=== PATIENT | male | born 1930 | race Caucasian/White ===

== ENCOUNTER 2017-02-16 13:56 | Inpatient (IN) ==
[2017-02-16] MEDS ORDERED: ALBUTEROL/IPRATROPIUM 3 ML NEB RESP TX PRN (13:58)
--- NOTE | 2017-02-16 15:26 | EKG Report ---
Stationary ECG Study [facility] Test Date: 02/16/2017 3:25:24 PM Pat Name: ISREAL MARSHALL Department: Room: 537 Gender: M Differential Repairer: : [id number] Requested by: Gato Lopez Order Number: [id number] Reading MD: KIMMY DEE Intervals Rogers Rate: 92 P: 999 VT: 0 QRS: -26 QRSD: 143 T: 150 QT: 364 QTc: 413 Interpretive Statements ATRIAL FIBRILLATION LEFT AXIS DEVIATION RIGHT BUNDLE BRANCH BLOCK MARKED ST DEPRESSION, CONSIDER SUBENDOCARDIAL INJURY Electronically Signed On 02-20-17 16:11:38 CDT by KIMMY DEE [email or web address]
--- NOTE | 2017-02-16 16:29 | Pulmonology History & Physical ---
History of Present Illness Chief complaint: Acute RADHA pneumonia, possible LLL and RLL pneumonia, pyrexia History of present illness: Gato Lpoez, ANP-BC, GNP-BC, acting as scribe for Dr. Jareth Guzman Mr. Goldstein is an 87-year-old white male who was seen as a work-in today at [facility] by Gato Lopez NP. He presented with complaints of increased shortness of breath, JONES, cough, sinus drainage and pyrexia. He stated that he was discharged from [facility] yesterday. He was inpatient 02/11/17 through under the care of the hospitalists. He was treated for acute sinusitis and possible pneumonia. He states that he feels "terrible". On evaluation at [facility], his CXR revealed an acute left upper lung pneumonia and possible left lower lung and right lower lung infiltrates. Given his advanced age, multiple co- morbidities and acute illness, it was felt in his best interest to hospitalize him for further evaluation and care. Patient was previously followed from a pulmonary standpoint by Dr. Vj Hightower. We assumed his pulmonary care in September [address] Aidan Champion for consideration of possible thoracentesis. 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 CT of the chest on 08/29/2016 showed no acute abnormality. Patient has bilateral pleural effusions which were essentially stable and partially loculated. The right upper lobe showed a soft tissue and groundglass lesion which was stable in appearance. The patient has completed 5 rounds of radiation treatment. He had had a thoracentesis at some point while inpatient but he was not sure if it helped his breathing or not and opted to forego therapeutic thoracentesis at our initial consultation. He has done reasonably well from a pulmonary standpoint. He presented to [facility] on 01/26/2017 with complaints of productive cough with pleurisy. [facility] transferred him to [facility] after the patient was found to have an acute pneumonia. He was subsequently admitted to the hospitalist service for evaluation and treatment. Dr. Guzman saw him in pulmonary consultation that admission. He denies any cardiac angina or palpitations. The patient has known atrial fibrillation. He denies any dysphasia or reflux. There is been no bleeding from any site. No change in bowel or bladder habits. No TIA symptoms or syncope. All other systems were reviewed and were negative. Allergies: None Home medications: See list Past medical history: Two recent hospitalization at [facility] as above. History is also significant for adenocarcinoma of the right upper lung which was diagnosed in May 2016. He is now followed from an oncology standpoint by Dr. Pickard. He has completed 5 rounds of radiation treatment. Atrial fibrillation which is followed by Dr. Mcgovern. Anemia and in the past has been hospitalized twice for symptomatic anemia and required blood transfusions. History of apical hypertrophic cardiomyopathy, arteriosclerotic heart disease , colon polyps, COPD, diverticulosis, dyslipidemia, gastroesophageal reflux disease, hiatal hernia, hypertension, hypoxia, and peptic ulcer disease. Surgical history: Positive for hernia repair, EGD with dilatation, and an unknown type of lung surgery in the . Cardiac cath in April 2015. Cholecystectomy. Family history: Positive for diabetes, skin and lung cancer, and myasthenia gravis in brothers. His father had prostate cancer, hypertension, and heart failure. His mother had heart failure. Social history: Patient socially drinks alcohol. He is a former smoker. Chest x-ray. Done 02/16/2017. My interpretation. Right upper lung known adenocarcinoma stable. There is an acute left upper lung infiltrate compatible with pneumonia. There are possible left lower lung and right lower lung infiltrates. Laboratory: Pending Microbiology: Pending EKG: Atrial fibrillation Home Medications Medication Instructions Recorded Confirmed Type Docusate Sodium Cap [Colace Cap] 100 mg PO BID 04/30/15 02/16/17 History Nitroglycerin Sl Tab [Nitrostat] 0.4 mg SL Q5M PRN 04/30/15 02/16/17 History Amitriptyline HCl 25 mg PO BEDTIME 05/11/15 02/16/17 History Albuterol Sulfate [Ventolin HFA] 90 mcg INH BID PRN 12/28/15 02/16/17 History Gabapentin 300 mg PO BEDTIME 12/28/15 02/16/17 History Montelukast Tab [Singulair Tab] 10 mg PO BEDTIME 12/28/15 02/16/17 History Carvedilol [Coreg] 6.25 mg PO BID #0 04/16/16 02/16/17 Rx Aspirin EC Tab 81 mg PO QAM 01/28/17 02/16/17 History Cholecalciferol (Vitamin D3) 5,000 unit PO QAM 01/28/17 02/16/17 History [Vitamin D3] Furosemide Tab [Lasix Tab] 40 mg PO BID PRN 01/28/17 02/16/17 History Iron (Carbonyl) [Feosol Natural 45 mg PO QAM 01/28/17 02/16/17 History Release Tab] Pantoprazole Tab [Protonix Tab] 40 mg PO QPM 01/28/17 02/16/17 History Potassium Chloride Cap/Tab [K Dur] 20 meq PO QAM 01/28/17 02/16/17 History Pravastatin Sodium 80 mg PO BEDTIME 01/28/17 02/16/17 History Pyridoxine Tab [Vitamin B6 Tab] 100 mg PO QAM 01/28/17 02/16/17 History Vit C/Vit E AC/Lut/Copper/Zinc 1 each PO DAILY 01/28/17 02/16/17 History [Preservision Lutein Softgel] dilTIAZem HCl [Tiazac] 180 mg PO BID 01/28/17 02/16/17 History Albuterol Inhaler [Proventil 2 puff INH Q6HR #1 inhaler 02/02/17 02/16/17 Rx Inhaler] Allergies Allergy/AdvReac Type Severity Reaction Status Date / Time No Known Allergies Allergy Verified 02/11/17 19:01 Medical,Surgical,& Family Hx - Medical History Cardio: History of: Cardiac Dysrhythmia (atrial fib,atrial flutter), CAD, Hypertension Psychological: No history of: Anxiety Disorders, ADHD, Behavior Problems, Bipolar Disorder, Depression, Previous Suicide Attempt, Psychiatric/Substance Abuse Tx, Schizophrenia, Violent Behavior, Psychiatric Problems Neurology: No history of: Brain Aneurysm, Cerebral Hemorrhage, Cerebrovascular Accident , Cerebral Palsy, Dementia, Migraine, Multiple Sclerosis, Parkinson's Disease, Peripheral Neuropathy, Seizures, TIA, Vertigo, Neurologocal Cancer HEENT: History of: Ear Problem (hard of earing), Eye Problem (macular degeneration), Dental Problems (wears upper and lower dentures) No history of: Glaucoma, Oral Cancer Endocrine: History of: Dyslipidemia Respiratory: History of: COPD, Pneumonia, Lung Cancer (nodule found many years ago), Respiratory Problems (pleuracy,pleural effusions) No history of: Obstructive Sleep Apnea Genitourinary: History of: Prostate Problems Gastrointestinal: History of: Diverticulitis/ Diverticulosis, GERD, Gastrointestinal Bleed Hematology: History of: Anemia No history of: Blood Transfusion Reaction, Blood Disorders Other: History of: Cancer (right lung,skin ca face arms back nose ears), Skin Problems (skin cancers) No history of: Anesthesia Reactions - Surgical History Cardiac Surgeries: Sugical HX of: Cardiac Catheterization (April 15, 2015 - no CAD ) Thoracic Surgeries: Surgical HX of;: Lobectomy (small lung nodule removed small portion of lung) Patient denies;: Organ Transplant Neurologic Surgeries: Patient denies: Brain Aneurysm, Cerebral Hemorrhage HEENT Surgeries: Patient denies: Eye Surgery, Tonsilectomy & Adenoidectomy Abdominal Surgeries: Surgical HX of: Abdominal Surgery, Cholecystectomy, Hernia Repair - Family History Family History: Reports;: Family Cancer (brothers skin and lung), Family Diabetes (brother), Family Heart Disease (mother and father CHF), Family Hypertension (father), Family Stroke (gm,gd,uncle) Denies;: Family Anesthesia Reaction - Social History Smoking Status: Former smoker Frequency of Alcohol Use: None Type of Drug Use: None Exam (Pulmonay) H&P - Constitutional Vitals: Period Temp Pulse Resp BP Sys/Brown Pulse Ox Last 24 Hr 98.1 F 89 20 110/59 96 Exam: Psych: Oriented x 3; a pleasant and cooperative patient who is acutely and chronically ill appearing HEENT: Pupils, irises, sclera, conjunctiva, and eyelids are normal. The face is symmetrical without rash or masses. Lips, tongue, buccal mucosa, soft and hard palates, and pharynx are WNL Neck: Symmetrical. Thyroid was not palpated. Lymphatics: No submandibular, cervical, or supraclavicular adenopathy Chest: Symmetrical with mild large airway wheeze and associated loose large airway congestion; rhonchi in the left upper lung CV: Irregularly irregular with normal rate; no murmur or extra sounds Arterial: Carotids with a fair upstroke. There is no bruit. Upper extremity pulses are palpable. Lower extremity pulses are palpable. Venous: Exam of the neck, upper, and lower extremities is normal Abd: No appreciable organomegaly, masses, tenderness, or bruit; Bowel sounds are positive 4; The aorta was not palpated /Rectal: Deferred Extremities: No clubbing, cyanosis, edema, or obvious DVT Skin: No cancerous or infectious lesions of the exposed, examined skin; the perineal area was not examined M/S: Age appropriate loss of the normal curvature of the cervical, thoracic, and lumbar spine Neurological: Cranial nerves are intact with decreased hearing acuity bilaterally, Long tract motor function is intact; Sensory exam was not done; gait was not tested. The remainder of the exam was noncontributory. Impression: #1: Acute left upper lung infiltrate compatible with pneumonia; possible left lower lung and right lower lung infiltrates #2: Adenocarcinoma of the right upper lung diagnosed in May 2016; now status post 5 rounds of radiation treatment. Followed by Dr. Pickard and Dr. Aidan Champion #3: Atrial fibrillation #4: Hyperlipidemia #5: Gastroesophageal reflux disease #6: History of iron deficiency anemia which in the past has required blood transfusions #7: COPD #8: Arteriosclerotic heart disease #9: History of pleural effusion #10: Diverticulosis of the colon #11: See past history Plan: #1: Admit to inpatient #2: Check sputum for Gram stain, culture and sensitivity #3: Check cold agglutinins and Legionella #4: IV antibiotics of Merrem and Fortaz; inhalation therapy #5: Continue home medications #6: See orders
[2017-02-16] MEDS: DEXTROSE 5% NACL 0.45% 1,000 ML IV SCH (16:30)
[2017-02-16] MEDS ORDERED: FUROSEMIDE 40 MG TABLET PO PRN (16:39)
[2017-02-16] MEDS ORDERED: NITROGLYCERIN SL 0.4 MG TABLET SL PRN (16:39)
[2017-02-16 17:34] LABS: Basophils % 0.1 % (0.0-0.8); Eosinophils # 0.3 10*3/uL (0.0-0.87); Eosinophils % 3.2 % (0.00-10.9); Hematocrit 34.9 VOL% (42.0-52.0); Hemoglobin 10.9 GM/DL (14.0-18.0); Immature Granulocytes % 0.4 %; Immature Granulocytes Absolute 0.03 #; Lymphocytes # 0.9 10*3/uL (1.4-4.0); Lymphocytes % 10.8 % (21.2-54.2); Mean Corpuscular HGB Conc 31.2 GM/DL (32-36); Mean Corpuscular Hemoglobin 35 PG (27-34); Mean Corpuscular Volume 111.9 FL (87-102); Mean Platelet Volume 10.6 FL (9.6-12.0); Monocytes # 0.8 10*3/uL (0.11-0.8); Neutrophils # 6.4 10*3/uL (1.4-7.4); Neutrophils % 76.5 % (38.7-73.9); Platelet Count 169 T/CUMM (130-400); Red Blood Count 3.12 MC/CUMM (3.8-5.5); Red Cell Distribution Width 15.1 % (9.3-17.3); White Blood Count 8.3 T/CUMM (4-12)
[2017-02-16 18:16] LABS: Albumin 2.7 G/DL (3.4-5.0); Bilirubin,Total 1.9 MG/DL (0.2-1.0); Calcium 8.3 MG/DL (8.5-10.1); Magnesium 2.2 MG/DL (1.8-2.4); Osmolality,Calculated 283.1 MOS/KG (273-304); Potassium 4.2 MMOL/L (3.5-5.1); Thyroid Stimulating Hormone 0.595 uIU/ml (0.358-3.74); Total Protein 5.6 G/DL (6.4-8.3)
[2017-02-16] MEDS: MEROPENEM 500 MG in SODIUM CHLORIDE 0.9% 100 ML IV SCH (18:24)
[2017-02-16 19:46] LABS: Platelet Estimate Normal
[2017-02-16 19:47] LABS: Anisocytosis 1+; Macrocytosis 1+
[2017-02-16] MEDS: DORNASE ALFA 2.5 MG/2.5 ML VIAL RESP TX SCH (19:54)
[2017-02-16] MEDS: ALBUTEROL/IPRATROPIUM 3 ML NEB RESP TX SCH (19:54)
[2017-02-16] MEDS: DILTIAZEM CD 180 MG CAPSULE PO SCH (20:51)
[2017-02-16] MEDS: GABAPENTIN 300 MG CAPSULE PO SCH (20:52)
[2017-02-16] MEDS: CARVEDILOL 6.25 MG TABLET PO SCH (20:52)
[2017-02-16] MEDS: AMITRIPTYLINE 25 MG TABLET PO SCH (20:52)
[2017-02-16] MEDS: MONTELUKAST 10 MG TABLET PO SCH (20:53)
[2017-02-16] MEDS: DOCUSATE SODIUM 100 MG CAPSULE PO SCH (20:53)
[2017-02-16] MEDS: ACETAMINOPHEN 325 MG TABLET PO PRN (20:53)
[2017-02-16] MEDS: PANTOPRAZOLE 40 MG TABLET PO SCH (20:53)
[2017-02-16] MEDS: PRAVASTATIN 40 MG TABLET PO SCH (20:53)
[2017-02-16] MEDS: MAGNESIUM HYDROXIDE SUSP 30 ML UDCUP PO PRN (21:15)
[2017-02-17] MEDS: MEROPENEM 500 MG in SODIUM CHLORIDE 0.9% 100 ML IV SCH ×3 (01:35→17:13)
[2017-02-17] MEDS: ALBUTEROL/IPRATROPIUM 3 ML NEB RESP TX SCH ×4 (02:04→19:09)
[2017-02-17 03:34] LABS: Apearance,Urine CLEAR (Clear); Bacteria,Urine Occasional /HPF (Few); Bilirubin,Urine Negative (Negative); Blood, Urine Negative (Negative); Glucose,Urine (UA) Negative (Negative); Hyaline Casts,Urine 3 /LPF (0-3); Ketones,Urine Negative (Negative); Mucus,Urine Occasional /LPF (Occasional); Nitrite,Urine Negative (Negative); Protein,Urine Negative; RBC,Urine 1 /HPF (0-4); Urine Color Yellow (Yellow); Urine Urobilinogen < 2.0 EU/DL (0.2-1.0); WBC,Urine 3 /HPF (0-6)
[2017-02-17 07:26] LABS: Eosinophils # 0.3 10*3/uL (0.0-0.87); Eosinophils % 4.1 % (0.00-10.9); Hematocrit 31.5 VOL% (42.0-52.0); Immature Granulocytes % 0.6 %; Immature Granulocytes Absolute 0.04 #; Lymphocytes # 0.6 10*3/uL (1.4-4.0); Lymphocytes % 8.3 % (21.2-54.2); Mean Corpuscular HGB Conc 31.7 GM/DL (32-36); Mean Corpuscular Hemoglobin 34 PG (27-34); Mean Corpuscular Volume 108.2 FL (87-102); Mean Platelet Volume 10.4 FL (9.6-12.0); Monocytes # 0.5 10*3/uL (0.11-0.8); Neutrophils # 5.3 10*3/uL (1.4-7.4); Platelet Count 115 T/CUMM (130-400); Red Blood Count 2.91 MC/CUMM (3.8-5.5); Red Cell Distribution Width 15.1 % (9.3-17.3); White Blood Count 6.7 T/CUMM (4-12)
[2017-02-17 07:57] LABS: Eosinophils 4 % (0-10); Lymphocytes 9 % (20-55); Segmented Neutrophils 81 % (50-85); Total Cells Counted 100
[2017-02-17 07:58] LABS: Hypochromasia 1+; Macrocytosis Slight; Ovalocytes Slight; Platelet Estimate Decreased
[2017-02-17 08:03] LABS: Magnesium 2.4 MG/DL (1.8-2.4); Potassium 4.2 MMOL/L (3.5-5.1)
[2017-02-17] MEDS: CHOLECALCIFEROL 1,000 UNIT TABLET PO SCH (09:31)
[2017-02-17] MEDS: DILTIAZEM CD 180 MG CAPSULE PO SCH ×2 (09:32→21:07)
[2017-02-17] MEDS: POTASSIUM CHLORIDE 20 MEQ TABLET PO SCH (09:32)
[2017-02-17] MEDS: IRON (CARBONYL) 45 MG TABLET PO SCH (09:32)
[2017-02-17] MEDS: MULTIVITAMIN (OCUVITE) TABLET PO SCH (09:32)
[2017-02-17] MEDS: PYRIDOXINE 100 MG TABLET PO SCH (09:32)
[2017-02-17] MEDS: DOCUSATE SODIUM 100 MG CAPSULE PO SCH ×2 (09:32→21:07)
[2017-02-17] MEDS: DEXTROSE 5% NACL 0.45% 1,000 ML IV SCH (09:33)
[2017-02-17] MEDS: CARVEDILOL 6.25 MG TABLET PO SCH (09:33)
[2017-02-17] MEDS: ASPIRIN EC 81 MG TABLET PO SCH (09:33)
--- NOTE | 2017-02-17 10:05 | XRay Report ---
XR chest 2V Indication: SOB Comparison: Chest x-ray dated February 11, 2017 Technique: Frontal and lateral views of the chest Findings: Continued moderate cardiomegaly. Progressed prominence of interstitial lung markings and patchy bilateral pulmonary opacities suggesting progressed pulmonary edema or pneumonia. Progressed small bilateral pleural fluid. Osseous and surrounding soft tissue structures appear grossly unchanged. IMPRESSION: As above. PROCEDURE INTERPRETED AT [facility] DEPARTMENT OF RADIOLOGY Final Report Signed by: Dr Stephan Jeong
[2017-02-17] MEDS: DORNASE ALFA 2.5 MG/2.5 ML VIAL RESP TX SCH ×2 (10:27→19:09)
--- NOTE | 2017-02-17 11:49 | Pulmonology Progress Note ---
Pulmonary - PN: Subj Interval history: Gato Lopez, ANP-BC, GNP-BC, acting as scribe for Dr. Jareth Guzman Mr. Goldstein is an 87-year-old white male who was [facility]. 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 Followed by Dr. Pickard and Dr. Aidan Champion #3: Atrial fibrillation #4: Hyperlipidemia #5: Gastroesophageal reflux disease #6: History of iron deficiency anemia which in the past has required blood transfusions #7: COPD #8: Arteriosclerotic heart disease #9: History of pleural effusion #10: Diverticulosis of the colon #11: See past history 02/17/2017. Patient was seen today along with Ofe Ramirez RN. Chest x-ray shows that his previously noted infiltrate persists and there appears to be an element of congestive heart failure. BNP is elevated at 725. Will obtain an echocardiogram and start Lasix 40 mg IV twice daily. He is getting daily chest x-rays. Sputum for Gram stain, culture and sensitivity was ordered at admission , however, the patient has not produced sputum for testing thus far. He states he feels better since admission. He is presently being treated with Merrem and Fortaz. Medications have been reviewed. Lasix was added today. Labs have been reviewed. White count is 6700 with 79.0% segs; H&H 10.0/31.5; platelet count 115,000; creatinine 1.30, BUN 19, electrolytes are normal; TSH and free T4 are normal at 0.595 and 1.10 respectively; urinalysis showed no evidence of infection Exam (Progress Note) - Constitutional Vitals: Period Temp Pulse Resp BP Sys/Brown Pulse Ox Last 24 Hr 98.1 F-101.2 F 80-96 16-20 99-130/47-70 89-99 Exam: Chest with loose large airway congestion Heart irregularly irregular Abdomen is nontender nondistended; bowel sounds are positive 4 Extremities with nothing to suggest acute deep venous thrombophlebitis Psychiatric oriented 3 Neurologic long-term motor function is intact Plan: Echocardiogram. Start Lasix 40 mg IV every 12 hours. Daily chest x- rays. Daily CBC, BMP, and BNP. See orders. Results - Labs CBC & BMP: 02/17/17 07:06 02/17/17 07:06
[2017-02-17] MEDS: cefTAZidime 500 MG in SODIUM CHLORIDE 0.9% 100 ML IV SCH ×2 (12:45→21:04)
[2017-02-17] MEDS: ACETAMINOPHEN 325 MG TABLET PO PRN (17:12)
[2017-02-17] MEDS: FUROSEMIDE 40 MG/4 ML VIAL IV SCH (17:12)
--- NOTE | 2017-02-17 17:39 | ECHO Report ---
Isabel Goldstein Exam Date: 02/17/2017 11:53 Referring Physician: Technologist: Angela Hu Age: 87 Ht (in): 72 Wt (lb): 168 Gender: M Exam Location: [facility] Echo Indications: Lung CA, SOB, eval LVF, pneumonia BP: 110 / 51 HR: 87 Rhythm: Sinus Technical Quality: IMPRESSIONS 3+ left atrial enlargement 3+ concentric LVH Hyperdynamic LV systolic function with ejection fraction is made to be 70% without wall motion commonality Aortic sclerosis without stenosis Mitral annular calcification 2+ tricuspid regurgitation with RVSP 41 mmHg plus RAP Monitor strips suggest irregular rhythm MEASUREMENTS (Male / Female) Normal Values 2D ECHO LV Diastolic Diameter PLAX 4.7 cm 4.2 - 5.9 / 3.9 - 5.3 cm LV Systolic Diameter PLAX 2.9 cm LV Fractional Shortening PLAX 37.1 % IVS Diastolic Thickness 2.0 cm 0.6 - 1.0 / 0.6 - 0.9 cm LVPW Diastolic Thickness 1.3 cm 0.6 - 1.0 / 0.6 - 0.9 cm RV Internal Dim ED PLAX 2.8 cm Aortic Root Diameter 2.9 cm LA Systolic Diameter LX 5.2 cm 3.0 - 4.0 / 2.7 - 3.8 cm DOPPLER TR Peak Velocity 319.0 cm/s TR Peak Gradient 40.7 mmHg FINDINGS Left Ventricle Severely increased septal wall thickness. Moderate concentric left ventricular hypertrophy with diastolic dysfunction. Left ventricular ejection fraction is estimated at Right Ventricle Normal right ventricular size. Right Atrium Normal right atrial size. Left Atrium Severely increased left atrial diameter. Mitral Valve Mildly thickened mitral valve with mild - moderate mitral regurgitation. Aortic Valve Aortic valve sclerosis without stenosis or regurgitation. Tricuspid Valve Morphologically normal tricuspid valve. Moderate tricuspid valve regurgitation. Tricuspid regurgitation velocities suggest a PAP of 40.7 mmHg + RAP. Pulmonic Valve Morphologically normal pulmonic valve. Trace pulmonary valve regurgitation. Pericardium No pericardial effusion. Aorta Normal size aortic root and proximal ascending aorta. Deonte Rojo (Electronically Signed) Final Date: 17 Feb 2017 17:38
[2017-02-17] MEDS: PANTOPRAZOLE 40 MG TABLET PO SCH (18:23)
[2017-02-17] MEDS: GABAPENTIN 300 MG CAPSULE PO SCH (21:06)
[2017-02-17] MEDS: PRAVASTATIN 40 MG TABLET PO SCH (21:07)
[2017-02-17] MEDS: MONTELUKAST 10 MG TABLET PO SCH (21:07)
[2017-02-17] MEDS: AMITRIPTYLINE 25 MG TABLET PO SCH (21:07)
[2017-02-18] MEDS: CARVEDILOL 6.25 MG TABLET PO SCH ×3 (00:05→20:33)
[2017-02-18] MEDS: ALBUTEROL/IPRATROPIUM 3 ML NEB RESP TX SCH ×4 (01:24→19:38)
[2017-02-18] MEDS: MEROPENEM 500 MG in SODIUM CHLORIDE 0.9% 100 ML IV SCH ×3 (01:25→18:08)
[2017-02-18] MEDS: DEXTROSE 5% NACL 0.45% 1,000 ML IV SCH ×2 (01:26→18:30)
[2017-02-18] MEDS: cefTAZidime 500 MG in SODIUM CHLORIDE 0.9% 100 ML IV SCH ×3 (04:44→20:00)
[2017-02-18 07:12] LABS: Basophils % 0.3 % (0.0-0.8); Eosinophils # 0.3 10*3/uL (0.0-0.87); Eosinophils % 5.4 % (0.00-10.9); Hematocrit 31.5 VOL% (42.0-52.0); Hemoglobin 10.1 GM/DL (14.0-18.0); Immature Granulocytes % 0.8 %; Immature Granulocytes Absolute 0.05 #; Lymphocytes # 0.7 10*3/uL (1.4-4.0); Lymphocytes % 11.8 % (21.2-54.2); Mean Corpuscular HGB Conc 32.1 GM/DL (32-36); Mean Corpuscular Hemoglobin 35 PG (27-34); Mean Corpuscular Volume 107.9 FL (87-102); Monocytes # 0.6 10*3/uL (0.11-0.8); Monocytes % 9.5 % (1.7-12.7); Neutrophils # 4.4 10*3/uL (1.4-7.4); Neutrophils % 72.2 % (38.7-73.9); Platelet Count 124 T/CUMM (130-400); Red Blood Count 2.92 MC/CUMM (3.8-5.5); Red Cell Distribution Width 14.7 % (9.3-17.3); White Blood Count 6.1 T/CUMM (4-12)
[2017-02-18 07:44] LABS: Magnesium 2.3 MG/DL (1.8-2.4)
[2017-02-18 07:52] LABS: Hypochromasia 1+
[2017-02-18] MEDS: DORNASE ALFA 2.5 MG/2.5 ML VIAL RESP TX SCH ×2 (07:55→19:44)
--- NOTE | 2017-02-18 09:10 | XRay Report ---
XR chest 2V Indication: Pneumonia, lung cancer Comparison: 17 Feb 2017 Findings: The heart and mediastinum are stable in size and configuration. The pulmonary vascularity is increased similar to previous study. There are bilateral pulmonary infiltrates, nodular densities and small effusion similar to previous exam. No other lung infiltrates, effusions, pneumothorax or other abnormality is demonstrated. Impression: No significant change. PROCEDURE INTERPRETED AT [facility] DEPARTMENT OF RADIOLOGY Final Report Signed by: Dr. Checo Green
[2017-02-18] MEDS: IRON (CARBONYL) 45 MG TABLET PO SCH (09:37)
[2017-02-18] MEDS: MULTIVITAMIN (OCUVITE) TABLET PO SCH (09:37)
[2017-02-18] MEDS: PYRIDOXINE 100 MG TABLET PO SCH (09:37)
[2017-02-18] MEDS: CHOLECALCIFEROL 1,000 UNIT TABLET PO SCH (09:37)
[2017-02-18] MEDS: POTASSIUM CHLORIDE 20 MEQ TABLET PO SCH (09:37)
[2017-02-18] MEDS: ASPIRIN EC 81 MG TABLET PO SCH (09:38)
[2017-02-18] MEDS: DOCUSATE SODIUM 100 MG CAPSULE PO SCH ×2 (09:38→20:33)
[2017-02-18] MEDS: FUROSEMIDE 40 MG/4 ML VIAL IV SCH ×3 (09:38→16:46)
[2017-02-18] MEDS: DILTIAZEM CD 180 MG CAPSULE PO SCH ×2 (09:38→20:33)
[2017-02-18] MEDS: ACETAMINOPHEN 325 MG TABLET PO PRN ×2 (14:07→23:00)
--- NOTE | 2017-02-18 18:32 | Pulmonology Progress Note ---
Pulmonary - PN: Subj Interval history: 87-year-old male with COPD and a history of right upper lobe non-small cell lung cancer admitted for concern for bilateral pneumonia. Today patient has become febrile and complains of burning with urination. Patient denies nausea/ vomiting/diarrhea/abdominal pain. He states his breathing is stable without significant improvement. He denies skin abscesses or lesions. No other concerns at this time. Exam (Progress Note) - Constitutional Vitals: Period Temp Pulse Resp BP Sys/Brown Pulse Ox Last 24 Hr 97.4 F-101.9 F 74-112 16-20 98-119/40-51 87-94 General appearance: normal weight - Head Head exam: Present: normal inspection - Eye Eye exam: Present: EOMI Pupils: Present: MARGO - Neck Neck exam: Present: normal inspection - Respiratory Respiratory exam: Present: clear to auscultation bilaterally, decreased breath sounds (Bibasilarly) - Cardiovascular Cardiovascular exam: Present: irregular rhythm - GI/Abdominal GI/Abdominal exam: Present: normal bowel sounds, soft. Absent: tenderness - Extremities Exam Extremities exam: Present: normal inspection. Absent: edema - Neurological Exam Neurological exam: Present: alert, oriented X3 - Psychiatric Psychiatric exam: Present: normal affect, normal mood - Skin Skin exam: Present: warm, dry. Absent: erythema, rash Results - Labs CBC & BMP: 02/18/17 06:50 02/18/17 06:50 - Diagnostic Findings Procedure: Chest x-ray: report reviewed by me, image reviewed by me (Bilateral small pleural effusions and evidence of bilateral pulmonary edema and possible fibrosis) Assessment and Plan (1) Pneumonia Status: Acute Assessment and plan: Chest x-ray with bilateral infiltrates which could be consistent with infectious etiology. Other possibilities include volume overload related to diastolic dysfunction. Will continue antibiotics and diuresis. Will discontinue IV fluids. Monitor for improvement. Goal saturation greater than 90% on supplemental oxygen. Current Visit: No Qualifiers: Pneumonia type: due to unspecified organism Laterality: bilateral Lung location: unspecified part of lung Qualified Code(s): J18.9 - Pneumonia, unspecified organism (2) Fever Status: Acute Assessment and plan: Patient noted to be febrile today and has been intermittently febrile throughout his hospital stay. Etiology possibly related to pneumonia, but will rule out UTI given his complaint of burning with urination. No evidence for abdominal source without nausea/vomiting/diarrhea/abdominal pain. No skin lesions. No meningeal signs. Continue current antibiotics and monitor. Current Visit: No (3) Bilateral pleural effusion Status: Acute Assessment and plan: Chest x-ray today shows bilateral small pleural effusions. Likely related to diastolic dysfunction noted on echo. Not large enough to warrant thoracentesis at this time. Monitor. Current Visit: Yes (4) COPD (chronic obstructive pulmonary disease) Status: Chronic Assessment and plan: Currently stable; continue bronchodilators. Current Visit: No (5) Congestive heart failure Status: Chronic Assessment and plan: Echo showed evidence of diastolic dysfunction. Continue rate control and blood pressure management. Diuresis as allowed. Will discontinue IV fluids. Current Visit: Yes Qualifiers: Congestive heart failure chronicity: acute on chronic
[2017-02-18] MEDS: PANTOPRAZOLE 40 MG TABLET PO SCH (20:33)
[2017-02-18] MEDS: GABAPENTIN 300 MG CAPSULE PO SCH (20:33)
[2017-02-18] MEDS: MONTELUKAST 10 MG TABLET PO SCH (20:33)
[2017-02-18] MEDS: PRAVASTATIN 40 MG TABLET PO SCH (20:33)
[2017-02-18] MEDS: AMITRIPTYLINE 25 MG TABLET PO SCH (20:33)
[2017-02-19] MEDS: ALBUTEROL/IPRATROPIUM 3 ML NEB RESP TX SCH ×4 (01:27→19:00)
[2017-02-19] MEDS: MEROPENEM 500 MG in SODIUM CHLORIDE 0.9% 100 ML IV SCH ×3 (02:28→17:04)
[2017-02-19] MEDS: cefTAZidime 500 MG in SODIUM CHLORIDE 0.9% 100 ML IV SCH ×3 (03:35→20:54)
[2017-02-19 07:06] LABS: Basophils % 0.2 % (0.0-0.8); Eosinophils # 0.4 10*3/uL (0.0-0.87); Eosinophils % 7.4 % (0.00-10.9); Hematocrit 30.5 VOL% (42.0-52.0); Hemoglobin 9.5 GM/DL (14.0-18.0); Immature Granulocytes % 0.4 %; Immature Granulocytes Absolute 0.02 #; Lymphocytes # 0.7 10*3/uL (1.4-4.0); Lymphocytes % 14.2 % (21.2-54.2); Mean Corpuscular HGB Conc 31.1 GM/DL (32-36); Mean Corpuscular Hemoglobin 34 PG (27-34); Mean Corpuscular Volume 108.9 FL (87-102); Mean Platelet Volume 11.1 FL (9.6-12.0); Monocytes # 0.5 10*3/uL (0.11-0.8); Monocytes % 9.7 % (1.7-12.7); Neutrophils # 3.2 10*3/uL (1.4-7.4); Neutrophils % 68.1 % (38.7-73.9); Platelet Count 122 T/CUMM (130-400); White Blood Count 4.7 T/CUMM (4-12)
[2017-02-19 07:35] LABS: Calcium 7.9 MG/DL (8.5-10.1); Magnesium 2.4 MG/DL (1.8-2.4); Osmolality,Calculated 284.1 MOS/KG (273-304); Potassium 4.5 MMOL/L (3.5-5.1)
[2017-02-19 07:38] LABS: Bilirubin,Direct 0.3 MG/DL (0.0-0.20); Bilirubin,Indirect 0.7 MG/DL (0.0-1.0); Total Protein 4.9 G/DL (6.4-8.3)
[2017-02-19 07:48] LABS: Hypochromasia 1+; Macrocytosis 1+; Polychromasia Slight
[2017-02-19] MEDS: DORNASE ALFA 2.5 MG/2.5 ML VIAL RESP TX SCH ×2 (07:51→19:08)
[2017-02-19] MEDS: FUROSEMIDE 40 MG/4 ML VIAL IV SCH ×2 (08:54→15:00)
[2017-02-19] MEDS: MULTIVITAMIN (OCUVITE) TABLET PO SCH (08:55)
[2017-02-19] MEDS: CHOLECALCIFEROL 1,000 UNIT TABLET PO SCH (08:55)
[2017-02-19] MEDS: ASPIRIN EC 81 MG TABLET PO SCH (08:55)
[2017-02-19] MEDS: IRON (CARBONYL) 45 MG TABLET PO SCH (08:55)
[2017-02-19] MEDS: DILTIAZEM CD 180 MG CAPSULE PO SCH ×2 (08:55→20:53)
[2017-02-19] MEDS: DOCUSATE SODIUM 100 MG CAPSULE PO SCH ×2 (08:56→20:53)
[2017-02-19] MEDS: CARVEDILOL 6.25 MG TABLET PO SCH ×2 (08:56→20:53)
[2017-02-19] MEDS: PYRIDOXINE 100 MG TABLET PO SCH (08:56)
[2017-02-19] MEDS: POTASSIUM CHLORIDE 20 MEQ TABLET PO SCH (08:56)
--- NOTE | 2017-02-19 09:30 | XRay Report ---
XR chest 2V Indication: Pneumonia, congestive heart failure Comparison: 18 Feb 2017 Findings: The heart and mediastinum are stable in size and configuration. The pulmonary vascularity is increased with bilateral increased interstitial lung density. There is increasing density in the left midlung. There is slight increase in effusions. No other lung infiltrates, effusions, pneumothorax or other abnormality is demonstrated. Impression: Findings suggesting worsening cardiac decompensation, pneumonia cannot be excluded. PROCEDURE INTERPRETED AT [facility] DEPARTMENT OF RADIOLOGY Final Report Signed by: Dr. Checo Green
--- NOTE | 2017-02-19 17:38 | Pulmonology Progress Note ---
Pulmonary - PN: Subj Interval history: 87-year-old male with COPD and a history of right upper lobe non-small cell lung cancer admitted for concern for bilateral pneumonia. Overnight patient has been intermittently refusing Lasix due to frequent urination causes. Today he is frustrated by there being minimal improvement in his breathing. We had a long conversation about the importance of him allowing nurses to give the treatments that we recommend, which will improve his breathing. Patient was also encouraged to increase activity level and physical therapy consult has been placed. Condom catheter has been placed to assist with urination difficulties. Exam (Progress Note) - Constitutional Vitals: Period Temp Pulse Resp BP Sys/Brown Pulse Ox Last 24 Hr 97.0 F-101.2 F 6-98 3-24 83-137/45-99 90-98 General appearance: normal weight - Head Head exam: Present: normal inspection - Eye Eye exam: Present: EOMI Pupils: Present: MARGO - Neck Neck exam: Present: normal inspection - Respiratory Respiratory exam: Present: rales (Bilaterally). Absent: accessory muscle use, rhonchi, wheezes - Cardiovascular Cardiovascular exam: Present: regular rate and rhythm - GI/Abdominal GI/Abdominal exam: Present: normal bowel sounds, soft - Extremities Exam Extremities exam: Present: normal inspection - Neurological Exam Neurological exam: Present: alert, oriented X3 - Skin Skin exam: Present: warm, dry Results - Labs CBC & BMP: 02/19/17 06:30 02/19/17 06:30 - Diagnostic Findings Procedure: Chest x-ray: image reviewed by me, report reviewed by me (Slight worsening in evidence of volume overload with bilateral pulmonary edema and small pleural effusions) Assessment and Plan (1) Pneumonia Status: Acute Assessment and plan: Chest x-ray with bilateral infiltrates which could be consistent with infectious etiology versus volume overload. Will continue antibiotics and diuresis, and I stressed the importance of him allowing nursing to provide the medicines as ordered. We also discussed fluid restriction to assist with diuresis per. Monitor for improvement. Goal saturation greater than 90% on supplemental oxygen. Current Visit: No Qualifiers: Pneumonia type: due to unspecified organism Laterality: bilateral Lung location: unspecified part of lung Qualified Code(s): J18.9 - Pneumonia, unspecified organism (2) Fever Status: Acute Assessment and plan: Patient continues to be intermittently febrile. Patient has not produced a urine sample for evaluation of his prior complaint of burning with urination. Will obtain UA and urine culture today. Continue broad antibiotics. Current Visit: No (3) Bilateral pleural effusion Status: Acute Assessment and plan: Chest x-ray continues to show bilateral small pleural effusions. Likely related to diastolic dysfunction noted on echo. Not large enough to warrant thoracentesis at this time. Monitor. Current Visit: Yes (4) COPD (chronic obstructive pulmonary disease) Status: Chronic Assessment and plan: Currently stable; continue bronchodilators. Current Visit: No (5) Congestive heart failure Status: Chronic Assessment and plan: Echo showed evidence of diastolic dysfunction. Continue rate control and blood pressure management. Diuresis as allowed. Current Visit: Yes Qualifiers: Congestive heart failure chronicity: acute on chronic
[2017-02-19] MEDS: ACETAMINOPHEN 325 MG TABLET PO PRN (20:53)
[2017-02-19] MEDS: PRAVASTATIN 40 MG TABLET PO SCH (20:53)
[2017-02-19] MEDS: MONTELUKAST 10 MG TABLET PO SCH (20:53)
[2017-02-19] MEDS: PANTOPRAZOLE 40 MG TABLET PO SCH (20:53)
[2017-02-19] MEDS: GABAPENTIN 300 MG CAPSULE PO SCH (20:53)
[2017-02-19] MEDS: AMITRIPTYLINE 25 MG TABLET PO SCH (20:53)
[2017-02-19] MEDS: NYSTATIN/TRIAMCINOLONE CREAM 15 GM TUBE TOP SCH (20:54)
[2017-02-20] MEDS: ALBUTEROL/IPRATROPIUM 3 ML NEB RESP TX SCH ×4 (00:45→19:39)
[2017-02-20] MEDS: MEROPENEM 500 MG in SODIUM CHLORIDE 0.9% 100 ML IV SCH ×3 (02:30→17:36)
[2017-02-20] MEDS: cefTAZidime 500 MG in SODIUM CHLORIDE 0.9% 100 ML IV SCH ×3 (03:09→21:23)
[2017-02-20 07:01] LABS: Basophils % 0.2 % (0.0-0.8); Eosinophils # 0.5 10*3/uL (0.0-0.87); Eosinophils % 9.5 % (0.00-10.9); Hematocrit 31.1 VOL% (42.0-52.0); Immature Granulocytes % 0.9 %; Immature Granulocytes Absolute 0.05 #; Lymphocytes # 0.8 10*3/uL (1.4-4.0); Lymphocytes % 15.3 % (21.2-54.2); Mean Corpuscular HGB Conc 32.2 GM/DL (32-36); Mean Corpuscular Hemoglobin 35 PG (27-34); Mean Corpuscular Volume 107.2 FL (87-102); Mean Platelet Volume 10.5 FL (9.6-12.0); Monocytes # 0.6 10*3/uL (0.11-0.8); Monocytes % 11.4 % (1.7-12.7); Neutrophils # 3.3 10*3/uL (1.4-7.4); Neutrophils % 62.7 % (38.7-73.9); Platelet Count 169 T/CUMM (130-400); White Blood Count 5.3 T/CUMM (4-12)
[2017-02-20 07:23] LABS: Eosinophils 12 % (0-10); Hypochromasia 1+; Lymphocytes 14 % (20-55); Ovalocytes Slight; Platelet Estimate Normal; Segmented Neutrophils 66 % (50-85); Total Cells Counted 100
[2017-02-20 07:24] LABS: Macrocytosis Slight
[2017-02-20 07:28] LABS: Calcium 8.4 MG/DL (8.5-10.1); Magnesium 2.3 MG/DL (1.8-2.4); Osmolality,Calculated 285.1 MOS/KG (273-304)
[2017-02-20] MEDS: DORNASE ALFA 2.5 MG/2.5 ML VIAL RESP TX SCH ×2 (07:41→19:39)
--- NOTE | 2017-02-20 09:07 | XRay Report ---
XR chest 2V Date: 02/20/2017 4:00 AM History: Pneumonia, lung cancer, CHF Comparison: 02/19/2017 Technique: PA and lateral chest Findings: The heart is minimally enlarged with calcification of the aortic knob. Fairly stable pleural-parenchymal findings in the right hemithorax. Diffuse diffuse cerebral findings in the left lung with minimal decrease in size of the left pleural effusion. Stable mediastinum and osseous structures. Impression: Improved CHF/infiltration in the left lung with minimally smaller left pleural effusion. More stable findings in the right hemithorax in patient with known carcinoma of the lung in the right upper lobe location. PROCEDURE INTERPRETED AT [facility] DEPARTMENT OF RADIOLOGY Final Report Signed by: Dr. Melvi Leonard
[2017-02-20] MEDS: ASPIRIN EC 81 MG TABLET PO SCH (09:47)
[2017-02-20] MEDS: DOCUSATE SODIUM 100 MG CAPSULE PO SCH ×2 (09:47→21:24)
[2017-02-20] MEDS: CARVEDILOL 6.25 MG TABLET PO SCH ×2 (09:47→21:24)
[2017-02-20] MEDS: IRON (CARBONYL) 45 MG TABLET PO SCH (09:47)
[2017-02-20] MEDS: DILTIAZEM CD 180 MG CAPSULE PO SCH ×2 (09:47→21:24)
[2017-02-20] MEDS: PYRIDOXINE 100 MG TABLET PO SCH (09:47)
[2017-02-20] MEDS: MULTIVITAMIN (OCUVITE) TABLET PO SCH (09:47)
[2017-02-20] MEDS: CHOLECALCIFEROL 1,000 UNIT TABLET PO SCH (09:47)
[2017-02-20] MEDS: POTASSIUM CHLORIDE 20 MEQ TABLET PO SCH (09:47)
[2017-02-20] MEDS: FUROSEMIDE 40 MG/4 ML VIAL IV SCH ×2 (09:53→17:36)
[2017-02-20] MEDS: NYSTATIN/TRIAMCINOLONE CREAM 15 GM TUBE TOP SCH ×2 (09:54→21:24)
--- NOTE | 2017-02-20 11:30 | Pulmonology Progress Note ---
Pulmonary - PN: Subj Interval history: Gato Lopez, ANP-BC, GNP-BC, acting as scribe for Dr. Jareth Guzman Mr. Goldstein is an 87-year-old white male who was admitted [facility]/16/[facility] from [facility]. 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 Followed by Dr. Pickard and Dr. Aidan Champion #3: Atrial fibrillation #4: Hyperlipidemia #5: Gastroesophageal reflux disease #6: History of iron deficiency anemia which in the past has required blood transfusions #7: COPD #8: Arteriosclerotic heart disease #9: History of pleural effusion #10: Diverticulosis of the colon #11: See past history 02/17/2017. Patient was seen today along with Ofe Ramirez RN. Chest x-ray shows that his previously noted infiltrate persists and there appears to be an element of congestive heart failure. BNP is elevated at 725. Will obtain an echocardiogram and start Lasix 40 mg IV twice daily. He is getting daily chest x-rays. Sputum for Gram stain, culture and sensitivity was ordered at admission , however, the patient has not produced sputum for testing thus far. He states he feels better since admission. He is presently being treated with Merrem and Fortaz. 02/20/2017. Patient was seen today along with Lilibeth Garvin RN. Patient's chest x-ray continues to show pneumonia and congestive heart failure. On 02/17/2017 we placed the patient on Lasix 40 mg IV twice daily. He has been diuresing well by report, but is complaining about his increased urination. He followed from a cardiology standpoint by Dr. Mcgovern, so we will consult [facility] cardiology for evaluation and any recommendations that they may have. Echocardiogram done 02/17/[address] Rojo showed 3+ left atrial enlargement, 3+ concentric left ventricular hypertrophy, hyperdynamic LV systolic function with an ejection fraction estimated at 70%, aortic sclerosis without stenosis, mitral annular calcification, 2+ tricuspid regurgitation with a pulmonary artery pressure 41 mmHg. Medications have been reviewed. We made no changes today. Labs have been reviewed. White count is 5300 with normal differential; H&H 10.0 /31.1; platelet count 169,000; creatinine 1.50, BUN 21, electrolytes normal; BNP 647 Cold agglutinins are negative. Legionella is pending. Blood cultures are negative at day 3. Exam (Progress Note) - Constitutional Vitals: Period Temp Pulse Resp BP Sys/Brown Pulse Ox Last 24 Hr 98.3 F-99.1 F 57-103 16-20 81-118/43-64 76-97 Exam: Chest with loose large airway congestion Heart irregularly irregular Abdomen is nontender nondistended; bowel sounds are positive 4 Extremities with nothing to suggest acute deep venous thrombophlebitis Psychiatric oriented 3 Neurologic long-term motor function is intact Plan: Continue present treatment. Consult [facility] for evaluation and recommendations. See orders. Results - Labs CBC & BMP: 02/20/17 06:35 02/20/17 06:35
--- NOTE | 2017-02-20 15:28 | Cardiology Consult Note ---
History of Present Illness - Data of Consult Patient: known to practice within the last 3 years - Consult Narrative History of present illness: Cardiology consult 87-year-old man with non-small cell carcinoma lung diagnosed May 2016. He had been treated with radiation therapy. Readmitted now with pneumonia. His caregiver Estefania is at the bedside. This is his third hospitalization in the last month. He was seen February 11February to with sinusitis and then returned on February 16 with pneumonia and increasing shortness of breath. Patient also has heart failure. Chest x-ray shows cardiomegaly with cephalization of flow and bilateral effusions. BNP level 647. EKG shows atrial fib with LVH right bundle branch block and left axis deviation. Patient has chronic atrial fib. He is not a candidate for anticoagulation due to history of GI bleed and prior transfusion and unsteady gait. Patient does not want to take his Lasix due to frequent urination. He now has a condom catheter in place to facilitate his urination. Echo Doppler showed ejection fraction of 65-70% with 3+ LVH and 3+ mitral regurgitation with aortic valve sclerosis normal RV function and moderate TR PA pressure 50 and no effusion. Patient had widely patent coronary arteries and normal ejection fraction by cardiac cath April [address] Shepard. No history of stroke. No history of diabetes. He does have GE reflux symptoms. He is very hard of hearing but does respond appropriately. Lab data shows sodium 142 potassium 4.0 BUN 21 creatinine 1.5 hemoglobin 10.0 hematocrit 31.6 MCV 107 Blood pressure 130/76 pulses 75-80 and irregular respirations 18 heart appearing. No carotid bruits. Flat neck veins. Decreased breath sounds with bibasilar rhonchi. Irregular rhythm. Soft systolic murmur. Abdomen soft benign. Femoral pulses are 2+. Distal pulses are 1+. No leg edema Impression Non-small cell lung carcinoma right upper lobe diagnosed May 2016 treated with radiation therapy. Pneumonia Superimposed CHF this is due to diastolic dysfunction and atrial fibrillation Widely patent coronary ejection fraction 60% by cardiac cath April 21, 2015 Recent echo showed ejection fraction of 65% with 3+ LVH, 3+ MR, aortic valve sclerosis, dilated left atrium, moderate TR PA pressure 50 Hard of hearing The patient is a curmudgeon Plan 40 mg IV Lasix twice daily External [place] catheter Diltiazem 180 mg and carvedilol 6.25 mg twice daily for rate control Antibiotics and nebs CC: Jareth Guzman MD - Home Medications and Allergies Home Medications: Home Medications Medication Instructions Recorded Confirmed Type Docusate Sodium Cap [Colace Cap] 100 mg PO BID 04/30/15 02/16/17 History Nitroglycerin Sl Tab [Nitrostat] 0.4 mg SL Q5M PRN 04/30/15 02/16/17 History Amitriptyline HCl 25 mg PO BEDTIME 05/11/15 02/16/17 History Albuterol Sulfate [Ventolin HFA] 90 mcg INH BID PRN 12/28/15 02/16/17 History Gabapentin 300 mg PO BEDTIME 12/28/15 02/16/17 History Montelukast Tab [Singulair Tab] 10 mg PO BEDTIME 12/28/15 02/16/17 History Carvedilol [Coreg] 6.25 mg PO BID #0 04/16/16 02/16/17 Rx Aspirin EC Tab 81 mg PO QAM 01/28/17 02/16/17 History Cholecalciferol (Vitamin D3) 5,000 unit PO QAM 01/28/17 02/16/17 History [Vitamin D3] Furosemide Tab [Lasix Tab] 40 mg PO BID PRN 01/28/17 02/16/17 History Iron (Carbonyl) [Feosol Natural 45 mg PO QAM 01/28/17 02/16/17 History Release Tab] Pantoprazole Tab [Protonix Tab] 40 mg PO QPM 01/28/17 02/16/17 History Potassium Chloride Cap/Tab [K Dur] 20 meq PO QAM 01/28/17 02/16/17 History Pravastatin Sodium 80 mg PO BEDTIME 01/28/17 02/16/17 History Pyridoxine Tab [Vitamin B6 Tab] 100 mg PO QAM 01/28/17 02/16/17 History Vit C/Vit E AC/Lut/Copper/Zinc 1 each PO DAILY 01/28/17 02/16/17 History [Preservision Lutein Softgel] dilTIAZem HCl [Tiazac] 180 mg PO BID 01/28/17 02/16/17 History Albuterol Inhaler [Proventil 2 puff INH Q6HR #1 inhaler 02/02/17 02/16/17 Rx Inhaler] Allergies/Adverse Reactions: Allergies Allergy/AdvReac Type Severity Reaction Status Date / Time No Known Allergies Allergy Verified 02/11/17 19:01 Medical,Surgical,& Family Hx - Medical History Cardio: History of: Cardiac Dysrhythmia (atrial fib,atrial flutter), CAD, Hypertension Psychological: No history of: Anxiety Disorders, ADHD, Behavior Problems, Bipolar Disorder, Depression, Previous Suicide Attempt, Psychiatric/Substance Abuse Tx, Schizophrenia, Violent Behavior, Psychiatric Problems Neurology: No history of: Brain Aneurysm, Cerebral Hemorrhage, Cerebrovascular Accident , Cerebral Palsy, Dementia, Migraine, Multiple Sclerosis, Parkinson's Disease, Peripheral Neuropathy, Seizures, TIA, Vertigo, Neurologocal Cancer HEENT: History of: Ear Problem (hard of earing), Eye Problem (macular degeneration), Dental Problems (wears upper and lower dentures) No history of: Glaucoma, Oral Cancer Endocrine: History of: Dyslipidemia Respiratory: History of: COPD, Pneumonia, Lung Cancer (nodule found many years ago), Respiratory Problems (pleuracy,pleural effusions) No history of: Obstructive Sleep Apnea Genitourinary: History of: Prostate Problems Gastrointestinal: History of: Diverticulitis/ Diverticulosis, GERD, Gastrointestinal Bleed Hematology: History of: Anemia No history of: Blood Transfusion Reaction, Blood Disorders Other: History of: Cancer (right lung,skin ca face arms back nose ears), Skin Problems (skin cancers) No history of: Anesthesia Reactions - Surgical History Cardiac Surgeries: Sugical HX of: Cardiac Catheterization (April 15, 2015 - no CAD ) Thoracic Surgeries: Surgical HX of;: Lobectomy (small lung nodule removed small portion of lung) Patient denies;: Organ Transplant Neurologic Surgeries: Patient denies: Brain Aneurysm, Cerebral Hemorrhage HEENT Surgeries: Patient denies: Eye Surgery, Tonsilectomy & Adenoidectomy Abdominal Surgeries: Surgical HX of: Abdominal Surgery, Cholecystectomy, Hernia Repair - Family History Family History: Reports;: Family Cancer (brothers skin and lung), Family Diabetes (brother), Family Heart Disease (mother and father CHF), Family Hypertension (father), Family Stroke (gm,gd,uncle) Denies;: Family Anesthesia Reaction - Social History Smoking Status: Former smoker Frequency of Alcohol Use: None Type of Drug Use: None Physical Examination Vital Signs Temp Pulse Resp BP Pulse Ox 98.1 F 89 20 110/59 96 02/16/17 15:46 02/16/17 15:46 02/16/17 15:46 02/16/17 15:46 02/16/17 15:46 Result/EKG - Labs CBC & BMP: 02/20/17 06:35 02/20/17 06:35 Labs: Laboratory Results - last 24 hr 02/20/17 02/20/17 02/20/17 06:35 06:35 06:35 WBC 5.3 RBC 2.90 L Hgb 10.0 L Hct 31.1 L MCV 107.2 H MCH 35 H MCHC 32.2 RDW 15.0 Plt Count 169 D MPV 10.5 Neut % (Auto) 62.7 Lymph % (Auto) 15.3 L [place] % (Auto) 11.4 Eos % (Auto) 9.5 Baso % (Auto) 0.2 Neut # (Auto) 3.3 Lymph # (Auto) 0.8 L [place] # (Auto) 0.6 Eos # (Auto) 0.5 Baso # (Auto) 0.0 Total Counted 100 Immature Gran % 0.9 Nucleated RBC % 0.0 Immature Gran # 0.05 Segmented Neutrophils 66 Lymphocytes 14 L Monocytes 8 Eosinophils 12 H Nucleated RBCs # 0.00 Platelet Estimate Normal Hypochromasia 1+ Macrocytosis Slight Ovalocytes Slight Morphology Comment Sodium 142 Potassium 4.0 Chloride 100 Carbon Dioxide 36 H Anion Gap 10.0 BUN 21 H Creatinine 1.50 H GFR Calculation 47 BUN/Creatinine Ratio 14.00 Glucose 90 POC Glucose Calculated Osmolality 285.1 Calcium 8.4 L Magnesium 2.3 B-Natriuretic Peptide 647 H 02/20/17 07:13 WBC RBC Hgb Hct MCV MCH MCHC RDW Plt Count MPV Neut % (Auto) Lymph % (Auto) [place] % (Auto) Eos % (Auto) Baso % (Auto) Neut # (Auto) Lymph # (Auto) [place] # (Auto) Eos # (Auto) Baso # (Auto) Total Counted Immature Gran % Nucleated RBC % Immature Gran # Segmented Neutrophils Lymphocytes Monocytes Eosinophils Nucleated RBCs # Platelet Estimate Hypochromasia Macrocytosis Ovalocytes Morphology Comment Sodium Potassium Chloride Carbon Dioxide Anion Gap BUN Creatinine GFR Calculation BUN/Creatinine Ratio Glucose POC Glucose 123 H Calculated Osmolality Calcium Magnesium B-Natriuretic Peptide
[2017-02-20] MEDS: ACETAMINOPHEN 325 MG TABLET PO PRN (21:23)
[2017-02-20] MEDS: GABAPENTIN 300 MG CAPSULE PO SCH (21:23)
[2017-02-20] MEDS: PRAVASTATIN 40 MG TABLET PO SCH (21:23)
[2017-02-20] MEDS: AMITRIPTYLINE 25 MG TABLET PO SCH (21:24)
[2017-02-20] MEDS: MONTELUKAST 10 MG TABLET PO SCH (21:24)
[2017-02-20] MEDS: PANTOPRAZOLE 40 MG TABLET PO SCH (21:24)
[2017-02-21] MEDS: ALBUTEROL/IPRATROPIUM 3 ML NEB RESP TX SCH ×4 (00:54→19:48)
[2017-02-21] MEDS: MEROPENEM 500 MG in SODIUM CHLORIDE 0.9% 100 ML IV SCH ×3 (03:05→23:18)
[2017-02-21] MEDS: cefTAZidime 500 MG in SODIUM CHLORIDE 0.9% 100 ML IV SCH ×3 (04:01→21:10)
[2017-02-21 05:32] LABS: Basophils % 0.2 % (0.0-0.8); Eosinophils # 0.5 10*3/uL (0.0-0.87); Eosinophils % 10.5 % (0.00-10.9); Hemoglobin 9.7 GM/DL (14.0-18.0); Immature Granulocytes % 0.6 %; Immature Granulocytes Absolute 0.03 #; Lymphocytes # 0.9 10*3/uL (1.4-4.0); Lymphocytes % 16.5 % (21.2-54.2); Mean Corpuscular HGB Conc 31.3 GM/DL (32-36); Mean Corpuscular Hemoglobin 34 PG (27-34); Mean Platelet Volume 10.4 FL (9.6-12.0); Monocytes # 0.5 10*3/uL (0.11-0.8); Monocytes % 10.1 % (1.7-12.7); Neutrophils # 3.2 10*3/uL (1.4-7.4); Neutrophils % 62.1 % (38.7-73.9); Platelet Count 180 T/CUMM (130-400); Red Blood Count 2.87 MC/CUMM (3.8-5.5); Red Cell Distribution Width 14.9 % (9.3-17.3); White Blood Count 5.2 T/CUMM (4-12)
[2017-02-21 05:55] LABS: Hypochromasia Slight
[2017-02-21 05:56] LABS: Macrocytosis Slight; Platelet Estimate Adequate
[2017-02-21 05:58] LABS: Calcium 8.3 MG/DL (8.5-10.1); Magnesium 2.4 MG/DL (1.8-2.4); Osmolality,Calculated 283.4 MOS/KG (273-304); Potassium 4.1 MMOL/L (3.5-5.1)
--- NOTE | 2017-02-21 06:26 | Cardiology Progress Note ---
Cardiology - PN: Subj Interval history: Cardiology note Laying flat in bed. He pulled off the external condom last night. Blood pressure 110/56 O2 sat 96 on 2 L cannula Decreased breath sounds few basilar crackles Irregular rhythm faint systolic murmur Abdomen benign No leg edema Lab data today White count 5.2 hemoglobin 9.7 hematocrit 31.0 Sodium 140 potassium 4.1 chloride 98 CO2 36 BUN 25 creatinine 1.50 Mag 2.4 BNP 64 Impression non small cell carcinoma lung diagnosed May 2016 treated with radiation therapy Pneumonia Superimposed CHF due to atrial fib and diastolic dysfunction Chronic atrial fibrillation Hard of hearing Recent echo showed ejection fraction 65% with 3+ LVH, 3+ MR, aortic valve sclerosis, moderate TR PA pressure 50 Patient is not a candidate for anticoagulation History of GI bleeding and unsteady Plan IV antibiotics and nebs 40 mg IV Lasix twice daily 6.25 mg Coreg twice daily and 180 mg twice daily Cardizem for rate control Encourage nutrition BMP in a.m. Exam (Progress Note) - Constitutional Vitals: Period Temp Pulse Resp BP Sys/Brown Pulse Ox Last 24 Hr 98.3 F-101.7 F 63-104 15-20 92-126/47-64 88-98 Result/EKG - Labs CBC & BMP: 02/21/17 04:49 02/21/17 04:49 Labs: Laboratory Results - last 24 hr 02/20/17 02/20/17 02/20/17 06:35 06:35 06:35 WBC 5.3 RBC 2.90 L Hgb 10.0 L Hct 31.1 L MCV 107.2 H MCH 35 H MCHC 32.2 RDW 15.0 Plt Count 169 D MPV 10.5 Neut % (Auto) 62.7 Lymph % (Auto) 15.3 L [place] % (Auto) 11.4 Eos % (Auto) 9.5 Baso % (Auto) 0.2 Neut # (Auto) 3.3 Lymph # (Auto) 0.8 L [place] # (Auto) 0.6 Eos # (Auto) 0.5 Baso # (Auto) 0.0 Total Counted 100 Immature Gran % 0.9 Nucleated RBC % 0.0 Immature Gran # 0.05 Segmented Neutrophils 66 Lymphocytes 14 L Monocytes 8 Eosinophils 12 H Nucleated RBCs # 0.00 Platelet Estimate Normal Hypochromasia 1+ Macrocytosis Slight Ovalocytes Slight Morphology Comment Sodium 142 Potassium 4.0 Chloride 100 Carbon Dioxide 36 H Anion Gap 10.0 BUN 21 H Creatinine 1.50 H GFR Calculation 47 BUN/Creatinine Ratio 14.00 Glucose 90 POC Glucose Calculated Osmolality 285.1 Calcium 8.4 L Magnesium 2.3 B-Natriuretic Peptide 647 H 02/20/17 02/21/17 02/21/17 07:13 04:49 04:49 WBC 5.2 RBC 2.87 L Hgb 9.7 L Hct 31.0 L MCV 108.0 H MCH 34 MCHC 31.3 L RDW 14.9 Plt Count 180 MPV 10.4 Neut % (Auto) 62.1 Lymph % (Auto) 16.5 L [place] % (Auto) 10.1 Eos % (Auto) 10.5 Baso % (Auto) 0.2 Neut # (Auto) 3.2 Lymph # (Auto) 0.9 L [place] # (Auto) 0.5 Eos # (Auto) 0.5 Baso # (Auto) 0.0 Total Counted Immature Gran % 0.6 Nucleated RBC % 0.0 Immature Gran # 0.03 Segmented Neutrophils Lymphocytes Monocytes Eosinophils Nucleated RBCs # 0.00 Platelet Estimate Adequate Hypochromasia Slight Macrocytosis Slight Ovalocytes Morphology Comment Sodium 140 Potassium 4.1 Chloride 98 Carbon Dioxide 36 H Anion Gap 10.1 BUN 25 H Creatinine 1.50 H GFR Calculation 47 BUN/Creatinine Ratio 16.00 Glucose 108 H POC Glucose 123 H Calculated Osmolality 283.4 Calcium 8.3 L Magnesium 2.4 B-Natriuretic Peptide 02/21/17 04:49 WBC RBC Hgb Hct MCV MCH MCHC RDW Plt Count MPV Neut % (Auto) Lymph % (Auto) [place] % (Auto) Eos % (Auto) Baso % (Auto) Neut # (Auto) Lymph # (Auto) [place] # (Auto) Eos # (Auto) Baso # (Auto) Total Counted Immature Gran % Nucleated RBC % Immature Gran # Segmented Neutrophils Lymphocytes Monocytes Eosinophils Nucleated RBCs # Platelet Estimate Hypochromasia Macrocytosis Ovalocytes Morphology Comment Sodium Potassium Chloride Carbon Dioxide Anion Gap BUN Creatinine GFR Calculation BUN/Creatinine Ratio Glucose POC Glucose Calculated Osmolality Calcium Magnesium B-Natriuretic Peptide 624 H
--- NOTE | 2017-02-21 07:38 | XRay Report ---
Exam: XR chest 2V Date: 02/21/2017 4:00 AM Indication: History of lung cancer CHF pneumonia Comparison: 02/20/2017 Technical: PA lateral Findings: Increasing right base pleural effusion with some underlying pleural thickening and interstitial densities present in both lung chang. Small area of slight increased density persist in the region of the right mid chest laterally. Degenerative change present thoracic spine. Mild cardiomegaly with ASVD. Impression: 1. Slight increasing effusion and/or pleural thickening in the lung chang bilaterally right greater than left with underlying component of COPD and fibrotic scarring. 2. ASVD. 3. Small area of increased density in the right mid chest persist this area measures possibly 2.7 cm PROCEDURE INTERPRETED AT [facility] DEPARTMENT OF RADIOLOGY Final Report Signed by: Dr. Jareth Thrasher
[2017-02-21] MEDS: DORNASE ALFA 2.5 MG/2.5 ML VIAL RESP TX SCH ×2 (07:50→19:48)
[2017-02-21] MEDS: FUROSEMIDE 40 MG/4 ML VIAL IV SCH ×2 (09:52→16:53)
[2017-02-21] MEDS: CHOLECALCIFEROL 1,000 UNIT TABLET PO SCH (09:52)
[2017-02-21] MEDS: POTASSIUM CHLORIDE 20 MEQ TABLET PO SCH (09:53)
[2017-02-21] MEDS: PYRIDOXINE 100 MG TABLET PO SCH (09:53)
[2017-02-21] MEDS: IRON (CARBONYL) 45 MG TABLET PO SCH (09:53)
[2017-02-21] MEDS: MULTIVITAMIN (OCUVITE) TABLET PO SCH (09:53)
[2017-02-21] MEDS: CARVEDILOL 6.25 MG TABLET PO SCH ×2 (09:53→21:10)
[2017-02-21] MEDS: DOCUSATE SODIUM 100 MG CAPSULE PO SCH ×2 (09:53→21:10)
[2017-02-21] MEDS: ASPIRIN EC 81 MG TABLET PO SCH (09:53)
[2017-02-21] MEDS: DILTIAZEM CD 180 MG CAPSULE PO SCH ×2 (09:53→21:10)
[2017-02-21] MEDS: NYSTATIN/TRIAMCINOLONE CREAM 15 GM TUBE TOP SCH ×2 (09:59→23:17)
--- NOTE | 2017-02-21 11:13 | Pulmonology Progress Note ---
Pulmonary - PN: Subj Interval history: Gato Lopez, ANP-BC, GNP-BC, acting as scribe for Dr. Jareth Guzman Mr. Goldstein is an 87-year-old white male who was admitted 02/16/2017 from [facility]. 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 Followed by Dr. Pickard and Dr. Aidan Champion #3: Atrial fibrillation #4: Hyperlipidemia #5: Gastroesophageal reflux disease #6: History of iron deficiency anemia which in the past has required blood transfusions #7: COPD #8: Arteriosclerotic heart disease #9: History of pleural effusion #10: Diverticulosis of the colon #11: See past history 02/17/2017. Patient was seen today along with Ofe Ramirez RN. Chest x-ray shows that his previously noted infiltrate persists and there appears to be an element of congestive heart failure. BNP is elevated at 725. Will obtain an echocardiogram and start Lasix 40 mg IV twice daily. He is getting daily chest x-rays. Sputum for Gram stain, culture and sensitivity was ordered at admission , however, the patient has not produced sputum for testing thus far. He states he feels better since admission. He is presently being treated with Merrem and Fortaz. 02/20/2017. Patient was seen today along with Lilibeth Garvin RN. Patient's chest x-ray continues to show pneumonia and congestive heart failure. On 02/17/2017 we placed the patient on Lasix 40 mg IV twice daily. He has been diuresing well by report, but is complaining about his increased urination. He followed from a cardiology standpoint by Dr. Mcgovern, so we will consult [facility] cardiology for evaluation and any recommendations that they may have. Echocardiogram done 02/17/[address] Rojo showed 3+ left atrial enlargement, 3+ concentric left ventricular hypertrophy, hyperdynamic LV systolic function with an ejection fraction estimated at 70%, aortic sclerosis without stenosis, mitral annular calcification, 2+ tricuspid regurgitation with a pulmonary artery pressure 41 mmHg. 02/21/2017. The patient could not be awakened to verbal stimuli this morning. Note, he is incredibly hard of feeling hearing and he did not have his hearing aids in place. He did not wake on physical exam. He was sleeping soundly. He has been seen in cardiology consultation by Dr. Berumen. His note has been reviewed. Patient did have a temperature of up to 101.7 last night. We will obtain another urinalysis. The patient has had increased urination secondary to increased Lasix dose. He previously had a condom catheter but removed it last night. Medications have been reviewed. We made no changes today. Labs have been reviewed. White count is 5200 with 62.1% segs; H&H 9.7/31.0; platelet count 190,000; creatinine 1.50, BUN 25, electrolytes are normal; BNP remains elevated at 624 Cold agglutinins are negative. Legionella is still pending. Blood cultures are negative at day 3. Exam (Progress Note) - Constitutional Vitals: Period Temp Pulse Resp BP Sys/Brown Pulse Ox Last 24 Hr 98.9 F-101.7 F 68-113 15-20 90-128/47-68 88-98 Exam: Chest with loose large airway congestion Heart irregularly irregular Abdomen is nontender nondistended; bowel sounds are positive 4 Extremities with nothing to suggest acute deep venous thrombophlebitis Psychiatric/neurologic... Unchanged, see above Plan: Continue present treatment. Urinalysis with reflex. In January 2017 patient had a positive Legionella antibody. I believe an IgM was ordered at that time, but cannot find evidence of this. Nonetheless, we will proceed with a urine Legionella antigen for clarification of the status of this. Results - Labs CBC & BMP: 02/21/17 04:49 02/21/17 04:49
[2017-02-21] MEDS: ACETAMINOPHEN 325 MG TABLET PO PRN ×2 (13:03→23:25)
[2017-02-21] MEDS: MAGNESIUM HYDROXIDE SUSP 30 ML UDCUP PO PRN (15:05)
[2017-02-21 15:30] LABS: Apearance,Urine CLEAR (Clear); Bilirubin,Urine Negative (Negative); Blood, Urine Negative (Negative); Glucose,Urine (UA) Negative (Negative); Ketones,Urine Negative (Negative); Mucus,Urine Occasional /LPF (Occasional); Nitrite,Urine Negative (Negative); Protein,Urine 30 MG/DL; RBC,Urine 2 /HPF (0-4); Squamous Epithelial Cell,Urine Occasional /HPF (0-10); Urine Color Straw (Yellow); Urine Specific Gravity 1.006 (1.001-1.035); Urine Urobilinogen < 2.0 EU/DL (0.2-1.0); WBC,Urine <1 /HPF (0-6)
[2017-02-21] MEDS: PRAVASTATIN 40 MG TABLET PO SCH (21:09)
[2017-02-21] MEDS: AMITRIPTYLINE 25 MG TABLET PO SCH (21:09)
[2017-02-21] MEDS: MONTELUKAST 10 MG TABLET PO SCH (21:10)
[2017-02-21] MEDS: GABAPENTIN 300 MG CAPSULE PO SCH (21:10)
[2017-02-21] MEDS: PANTOPRAZOLE 40 MG TABLET PO SCH (21:10)
[2017-02-22] MEDS: ALBUTEROL/IPRATROPIUM 3 ML NEB RESP TX SCH ×4 (00:50→19:20)
[2017-02-22] MEDS: cefTAZidime 500 MG in SODIUM CHLORIDE 0.9% 100 ML IV SCH ×3 (05:58→21:13)
[2017-02-22] MEDS: DORNASE ALFA 2.5 MG/2.5 ML VIAL RESP TX SCH ×2 (07:42→19:18)
[2017-02-22 07:47] LABS: Calcium 8.6 MG/DL (8.5-10.1); Osmolality,Calculated 287.3 MOS/KG (273-304); Potassium 4.4 MMOL/L (3.5-5.1)
[2017-02-22] MEDS ORDERED: BISACODYL 5 MG TABLET PO ONE (08:25)
[2017-02-22] MEDS: MAGNESIUM HYDROXIDE SUSP 30 ML UDCUP PO PRN ×2 (08:49→21:01)
[2017-02-22] MEDS: DOCUSATE SODIUM 100 MG CAPSULE PO SCH ×2 (08:49→20:54)
[2017-02-22] MEDS: CHOLECALCIFEROL 1,000 UNIT TABLET PO SCH (08:49)
[2017-02-22] MEDS: ASPIRIN EC 81 MG TABLET PO SCH (08:49)
[2017-02-22] MEDS: DILTIAZEM CD 180 MG CAPSULE PO SCH ×2 (08:51→20:54)
[2017-02-22] MEDS: POTASSIUM CHLORIDE 20 MEQ TABLET PO SCH (08:51)
[2017-02-22] MEDS: PYRIDOXINE 100 MG TABLET PO SCH (08:51)
[2017-02-22] MEDS: FUROSEMIDE 40 MG/4 ML VIAL IV SCH ×3 (08:51→16:09)
[2017-02-22] MEDS: IRON (CARBONYL) 45 MG TABLET PO SCH (08:51)
[2017-02-22] MEDS: MULTIVITAMIN (OCUVITE) TABLET PO SCH (08:51)
[2017-02-22] MEDS: CARVEDILOL 6.25 MG TABLET PO SCH ×2 (08:51→20:55)
[2017-02-22] MEDS: NYSTATIN/TRIAMCINOLONE CREAM 15 GM TUBE TOP SCH ×2 (08:52→20:55)
[2017-02-22] MEDS: MEROPENEM 500 MG in SODIUM CHLORIDE 0.9% 100 ML IV SCH ×2 (09:29→22:07)
[2017-02-22] MEDS: ACETAMINOPHEN 325 MG TABLET PO PRN (11:56)
[2017-02-22] MEDS: AZELASTINE NASAL 137 MCG/SPRAY 30 ML BOTTLE BOTH NARES SCH ×4 (11:56→20:54)
--- NOTE | 2017-02-22 12:06 | Pulmonology Progress Note ---
Pulmonary - PN: Subj Interval history: Gato Lopez, ANP-BC, GNP-BC, acting as scribe for Dr. Jareth Guzman Mr. Goldstein is an 87-year-old white male who was admitted [facility]16[facility]. 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 Followed by Dr. Pickard and Dr. Aidan Champion #3: Atrial fibrillation #4: Hyperlipidemia #5: Gastroesophageal reflux disease #6: History of iron deficiency anemia which in the past has required blood transfusions #7: COPD #8: Arteriosclerotic heart disease #9: History of pleural effusion #10: Diverticulosis of the colon #11: See past history 02/17/2017. Patient was seen today along with Ofe Ramirez RN. Chest x-ray shows that his previously noted infiltrate persists and there appears to be an element of congestive heart failure. BNP is elevated at 725. Will obtain an echocardiogram and start Lasix 40 mg IV twice daily. He is getting daily chest x-rays. Sputum for Gram stain, culture and sensitivity was ordered at admission , however, the patient has not produced sputum for testing thus far. He states he feels better since admission. He is presently being treated with Merrem and Fortaz. 02/20/2017. Patient was seen today along with Lilibeth Garvin RN. Patient's chest x-ray continues to show pneumonia and congestive heart failure. On 02/17/2017 we placed the patient on Lasix 40 mg IV twice daily. He has been diuresing well by report, but is complaining about his increased urination. He followed from a cardiology standpoint by Dr. Mcgovern, so we will consult [facility]ology for evaluation and any recommendations that they may have. Echocardiogram done 02/17/[address] Rojo showed 3+ left atrial enlargement, 3+ concentric left ventricular hypertrophy, hyperdynamic LV systolic function with an ejection fraction estimated at 70%, aortic sclerosis without stenosis, mitral annular calcification, 2+ tricuspid regurgitation with a pulmonary artery pressure 41 mmHg. 02/21/2017. The patient could not be awakened to verbal stimuli this morning. Note, he is incredibly hard of feeling hearing and he did not have his hearing aids in place. He did not wake on physical exam. He was sleeping soundly. He has been seen in cardiology consultation by Dr. Berumen. His note has been reviewed. Patient did have a temperature of up to 101.7 last night. We will obtain another urinalysis. The patient has had increased urination secondary to increased Lasix dose. He previously had a condom catheter but removed it last night. 02/22/17. The patient was seen today along with Lila Gutierrez RN. He complains of left maxillary pain and drainage. He states he "always gets this when I'm sick". We will obtain sinus xrays, but start Astelin 2 sprays in each nostril QID. Today's CXR shows that the previously noted infiltrate is improving , but there is a continued right pleural effusion. We have increased his Lasix to 40mg IV Q8H. He is getting daily labs. Medications have been reviewed. Labs have been reviewed. Cold agglutinins are negative. Legionella is positive. A urine Legionella antigen was ordered on 02/21/17 and the result is pending. Blood cultures are negative. Exam (Progress Note) - Constitutional Vitals: Period Temp Pulse Resp BP Sys/Brown Pulse Ox Last 24 Hr 97.1 F-101.8 F 70-90 16-20 94-123/46-75 88-98 Exam: Chest with loose large airway congestion Heart irregularly irregular Abdomen is nontender nondistended; bowel sounds are positive 4 Extremities with nothing to suggest acute deep venous thrombophlebitis Psychiatric oriented x 3 Neurologic long tract motor function is intact; severely reduced hearing acuity bilaterally Plan: Continue present treatment. In January 2017 patient had a positive Legionella antibody. I believe an IgM was ordered at that time, but cannot find evidence of this. Nonetheless, we proceeded with a urine Legionella antigen for clarification of the status of this and it is pending at this time. CXR, BNP, and BMP/Mg+ in the morning. Increase Lasix to 40mg IV Q8H. Start Astelin 2 sprays in each nostril QID. Sinus xrays. See orders. Results - Labs CBC & BMP: 02/21/17 04:49 02/22/17 06:13
--- NOTE | 2017-02-22 14:43 | XRay Report ---
XR sinus Indication: Left maxillary sinus pain Findings: No air-fluid levels or abnormal soft tissue density are present within the sinuses. No fracture is identified. Sinuses appear normally formed. No other abnormality seen. Impression: No evidence of sinus abnormality demonstrated. PROCEDURE INTERPRETED AT [facility] DEPARTMENT OF RADIOLOGY Final Report Signed by: Dr. Checo Green
--- NOTE | 2017-02-22 15:57 | Cardiology Progress Note ---
Dacia Gaspar April, CLIFF, am scribing for, and in the presence of, Loi Berumen MD 15:56. Assessment and Plan (1) Pneumonia Status: Acute Current Visit: Yes Qualifiers: Pneumonia type: due to unspecified organism Laterality: bilateral Lung location: unspecified part of lung Qualified Code(s): J18.9 - Pneumonia, unspecified organism (2) Atrial fibrillation Status: Chronic Current Visit: Yes Qualifiers: Atrial fibrillation type: chronic Qualified Code(s): I48.2 - Chronic atrial fibrillation Cardiology - PN: Subj Interval history: Cardiology note [employer]: Dr. Mcgovern Mr. Goldstein is seen resting in bed in no acute distress. He denies any chest pain, palpitations, or dizziness. He reports his breathing is about the same. His main complaint is sinus drainage from the left sinus. 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 More pleasant today. Still complaining of sinus congestion. Appetite fair. Low-grade fever yesterday Decreased breath sounds few rhonchi in the right base Irregular rhythm distant tones No leg edema O2 sat 91% on 4 L cannula Blood pressure 100/70 Plan IV antibiotics and nebs 40 g Lasix IV twice daily Encourage nutrition Exam (Progress Note) - Constitutional Vitals: Period Temp Pulse Resp BP Sys/Brown Pulse Ox Last 24 Hr 97.1 F-100.1 F 70-90 16-20 94-123/46-75 88-98 General appearance: normal weight, no acute distress - Head Head exam: Absent: abrasion, hematoma - Eye Eye exam: Absent: periorbital swelling, laceration to eyelids - Respiratory Respiratory exam: Present: decreased breath sounds, rales, other (Oxygen use intermittently). Absent: accessory muscle use, chest wall tenderness - Cardiovascular Cardiovascular exam: Present: irregular rhythm - GI/Abdominal GI/Abdominal exam: Present: normal bowel sounds, soft. Absent: distended, tenderness - Extremities Exam Extremities exam: Absent: edema - Neurological Exam Neurological exam: Present: alert, oriented X3 - Psychiatric Psychiatric exam: Present: normal affect, normal mood - Skin Skin exam: Present: warm, dry Result/EKG - Labs CBC & BMP: 02/21/17 04:49 02/22/17 06:13 Lab Results: I have reviewed the past 24 hour labs Labs: Laboratory Results - last 24 hr 02/16/17 02/21/17 02/22/17 16:33 13:45 06:13 Sodium 141 Potassium 4.4 Chloride 96 L Carbon Dioxide 38 H Anion Gap 11.4 BUN 31 H Creatinine 1.40 H GFR Calculation 50 BUN/Creatinine Ratio 22.00 H Glucose 105 Calculated Osmolality 287.3 Calcium 8.6 Urine Color Straw Urine Appearance Clear Urine pH 6.0 Ur [address] [place] 1.006 Urine Protein 30 Urine Glucose (UA) Negative Urine Ketones Negative Urine Blood Negative Urine Nitrate Negative Urine Bilirubin Negative Urine Urobilinogen < 2.0 H Urine Leukocytes Negative Urine RBC 2 Urine WBC <1 Ur Squamous Epith Cells Occasional Urine Mucus Occasional Ur Culture Indicated? Not indicated Legionella pneumophila Ab Positive [place] Lance Thomas, MD, personally performed the services described in this documentation, ascribed by Shellie Pederson RN in my presence, and it is both accurate and complete [id number] .
[2017-02-22] MEDS: PRAVASTATIN 40 MG TABLET PO SCH (20:55)
[2017-02-22] MEDS: AMITRIPTYLINE 25 MG TABLET PO SCH (20:55)
[2017-02-22] MEDS: GABAPENTIN 300 MG CAPSULE PO SCH (20:55)
[2017-02-22] MEDS: MONTELUKAST 10 MG TABLET PO SCH (20:55)
[2017-02-22] MEDS: PANTOPRAZOLE 40 MG TABLET PO SCH (20:55)
[2017-02-23] MEDS: ALBUTEROL/IPRATROPIUM 3 ML NEB RESP TX SCH ×4 (00:12→19:29)
[2017-02-23] MEDS: cefTAZidime 500 MG in SODIUM CHLORIDE 0.9% 100 ML IV SCH ×3 (03:47→21:44)
[2017-02-23 05:11] LABS: Basophils % 0.2 % (0.0-0.8); Eosinophils # 0.4 10*3/uL (0.0-0.87); Eosinophils % 6.5 % (0.00-10.9); Hematocrit 29.3 VOL% (42.0-52.0); Hemoglobin 9.1 GM/DL (14.0-18.0); Immature Granulocytes % 0.5 %; Immature Granulocytes Absolute 0.03 #; Lymphocytes # 0.8 10*3/uL (1.4-4.0); Lymphocytes % 12.9 % (21.2-54.2); Mean Corpuscular HGB Conc 31.1 GM/DL (32-36); Mean Corpuscular Hemoglobin 33 PG (27-34); Mean Corpuscular Volume 106.9 FL (87-102); Mean Platelet Volume 10.7 FL (9.6-12.0); Monocytes # 0.6 10*3/uL (0.11-0.8); Monocytes % 9.8 % (1.7-12.7); NRBC # 0.02 10*3/uL; Neutrophils # 4.3 10*3/uL (1.4-7.4); Neutrophils % 70.1 % (38.7-73.9); Platelet Count 224 T/CUMM (130-400); Red Blood Count 2.74 MC/CUMM (3.8-5.5); Red Cell Distribution Width 15.3 % (9.3-17.3); White Blood Count 6.1 T/CUMM (4-12)
[2017-02-23 05:35] LABS: Hypochromasia Slight; Macrocytosis Slight
[2017-02-23 05:36] LABS: Platelet Estimate Adequate
[2017-02-23 05:40] LABS: Calcium 7.9 MG/DL (8.5-10.1); Magnesium 3.2 MG/DL (1.8-2.4); Osmolality,Calculated 285.4 MOS/KG (273-304)
[2017-02-23] MEDS: DORNASE ALFA 2.5 MG/2.5 ML VIAL RESP TX SCH ×2 (07:39→19:29)
--- NOTE | 2017-02-23 08:00 | XRay Report ---
Exam: XR chest 2V Date: 02/23/2017 4:00 AM Indication: Pneumonia Comparison: 02/21/2017 Technical:PA lateral Findings: Cardiomegaly present with low volume effusions and mild interstitial densities and scarring present. Some interstitial soft tissue density in the right midlung zone laterally. Underlying component of COPD and fibrotic scarring present. Cardiomegaly and ASVD. Oxygen tubing superimposes exam. Bony demineralization is present. Some thickening of the fissures present. Impression: 1. Bilateral basal pleural effusions with slight increasing effusions in the left base as compared to the previous exam 2. Underlying component of COPD and fibrotic scarring 3. Cardiomegaly and ASVD. PROCEDURE INTERPRETED AT [facility] DEPARTMENT OF RADIOLOGY Final Report Signed by: Dr. Jareth Thrasher
[2017-02-23] MEDS: DILTIAZEM CD 180 MG CAPSULE PO SCH ×2 (09:36→21:38)
[2017-02-23] MEDS: CHOLECALCIFEROL 1,000 UNIT TABLET PO SCH (09:36)
[2017-02-23] MEDS: FUROSEMIDE 40 MG/4 ML VIAL IV SCH ×3 (09:37→16:22)
[2017-02-23] MEDS: DOCUSATE SODIUM 100 MG CAPSULE PO SCH ×2 (09:37→21:44)
[2017-02-23] MEDS: CARVEDILOL 6.25 MG TABLET PO SCH ×2 (09:37→21:44)
[2017-02-23] MEDS: POTASSIUM CHLORIDE 20 MEQ TABLET PO SCH (09:37)
[2017-02-23] MEDS: IRON (CARBONYL) 45 MG TABLET PO SCH (09:37)
[2017-02-23] MEDS: AZELASTINE NASAL 137 MCG/SPRAY 30 ML BOTTLE BOTH NARES SCH ×4 (09:37→21:44)
[2017-02-23] MEDS: ASPIRIN EC 81 MG TABLET PO SCH (09:37)
[2017-02-23] MEDS: MULTIVITAMIN (OCUVITE) TABLET PO SCH (09:38)
[2017-02-23] MEDS: PYRIDOXINE 100 MG TABLET PO SCH (09:38)
[2017-02-23] MEDS: NYSTATIN/TRIAMCINOLONE CREAM 15 GM TUBE TOP SCH ×2 (09:38→21:44)
[2017-02-23] MEDS: MEROPENEM 500 MG in SODIUM CHLORIDE 0.9% 100 ML IV SCH ×2 (09:38→23:00)
--- NOTE | 2017-02-23 10:43 | Pulmonology Progress Note ---
Pulmonary - PN: Subj Interval history: Gato Lopez, ANP-BC, GNP-BC, acting as scribe for Dr. Jareth Guzman Mr. Goldstein is an 87-year-old white male who was admitted 02/16/2017 from [facility]. 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 Followed by Dr. Pickard and Dr. Aidan Champion #3: Atrial fibrillation #4: Hyperlipidemia #5: Gastroesophageal reflux disease #6: History of iron deficiency anemia which in the past has required blood transfusions #7: COPD #8: Arteriosclerotic heart disease #9: History of pleural effusion #10: Diverticulosis of the colon #11: See past history 02/17/2017. Patient was seen today along with Ofe Ramirez RN. Chest x-ray shows that his previously noted infiltrate persists and there appears to be an element of congestive heart failure. BNP is elevated at 725. Will obtain an echocardiogram and start Lasix 40 mg IV twice daily. He is getting daily chest x-rays. Sputum for Gram stain, culture and sensitivity was ordered at admission , however, the patient has not produced sputum for testing thus far. He states he feels better since admission. He is presently being treated with Merrem and Fortaz. 02/20/2017. Patient was seen today along with Lilibeth Garvin RN. Patient's chest x-ray continues to show pneumonia and congestive heart failure. On 02/17/2017 we placed the patient on Lasix 40 mg IV twice daily. He has been diuresing well by report, but is complaining about his increased urination. He followed from a cardiology standpoint by Dr. Mcgovern, so we will consult [facility] cardiology for evaluation and any recommendations that they may have. Echocardiogram done 02/17/[address] Rojo showed 3+ left atrial enlargement, 3+ concentric left ventricular hypertrophy, hyperdynamic LV systolic function with an ejection fraction estimated at 70%, aortic sclerosis without stenosis, mitral annular calcification, 2+ tricuspid regurgitation with a pulmonary artery pressure 41 mmHg. 02/21/2017. The patient could not be awakened to verbal stimuli this morning. Note, he is incredibly hard of feeling hearing and he did not have his hearing aids in place. He did not wake on physical exam. He was sleeping soundly. He has been seen in cardiology consultation by Dr. Berumen. His note has been reviewed. Patient did have a temperature of up to 101.7 last night. We will obtain another urinalysis. The patient has had increased urination secondary to increased Lasix dose. He previously had a condom catheter but removed it last night. 02/22/17. The patient was seen today along with Lila Gutierrez RN. He complains of left maxillary pain and drainage. He states he "always gets this when I'm sick". We will obtain sinus xrays, but start Astelin 2 sprays in each nostril QID. Today's CXR shows that the previously noted infiltrate is improving , but there is a continued right pleural effusion. We have increased his Lasix to 40mg IV Q8H. He is getting daily labs. 02/23/2017. The patient is doing well this morning. He states his breathing more comfortably. He did not complain of the sinuses today. He was started on Astelin yesterday. Sinus x-ray showed no evidence of sinus abnormality. Specifically, no air-fluid level or abnormal soft tissue density. States chest x-ray shows slight improvement when compared to previous x-rays. Yesterday we increased patient's Lasix and he is tolerating this well. He has been afebrile. Medications have been reviewed. We made no changes today. Labs have been reviewed. White count is 6100 with 70.1% segs; H&H 9.1/29.3 with mixed indices and top normal red blood cell distribution with; platelet count 224,000; creatinine 1.40, BUN 30, sodium 140, potassium 4.0, magnesium 3.2 ; BNP 735 Cold agglutinins are negative. Legionella is positive. A urine Legionella antigen was ordered on 02/21/17 and the result is pending. Blood cultures are negative. Exam (Progress Note) - Constitutional Vitals: Period Temp Pulse Resp BP Sys/Brown Pulse Ox Last 24 Hr 98.1 F-101.8 F 62-93 18-20 95-122/41-67 90-97 Exam: Chest with mild loose large airway congestion Heart irregularly irregular Abdomen is nontender nondistended; bowel sounds are positive 4 Extremities with nothing to suggest acute deep venous thrombophlebitis Psychiatric oriented x 3 Neurologic long tract motor function is intact; severely reduced hearing acuity bilaterally Plan: Continue present treatment. If he continues to do well the remainder of today and in the morning, he should be ready for discharge tomorrow. Results - Labs CBC & BMP: 02/23/17 04:32 02/23/17 04:32
--- NOTE | 2017-02-23 13:54 | Cardiology Progress Note ---
Assessment and Plan (1) Pneumonia Status: Acute Current Visit: Yes Qualifiers: Pneumonia type: due to unspecified organism Laterality: bilateral Lung location: unspecified part of lung Qualified Code(s): J18.9 - Pneumonia, unspecified organism (2) Atrial fibrillation Status: Chronic Current Visit: Yes Qualifiers: Atrial fibrillation type: chronic Qualified Code(s): I48.2 - Chronic atrial fibrillation Cardiology - PN: Subj Interval history: Cardiology note 87-year-old man with pneumonia and superimposed CHF due to atrial fib and diastolic dysfunction. History of non-small cell carcinoma lung diagnosed May 2016 treated with radiation therapy. Appetite better. O2 sat 94% on 4 L cannula Irregular rhythm soft systolic murmur as before Decreased breath sounds with mild wheezing today Abdomen benign No leg edema Impression pneumonia superimposed CHF due to atrial fib and diastolic dysfunction chronic Atrial fibrillation Very hard of hearing Recent echo ejection fraction 65% with 3+ LVH, 3+ MR, aortic valve sclerosis, moderate TR PA pressure 50 History of GI bleeding with transfusion and unsteady Patient not a candidate for anticoagulation Legionella titer positive Plan IV antibiotics and nebs 40 mg Lasix IV twice daily continue Coreg 6.25 mg twice daily and diltiazem twice daily for rate control Exam (Progress Note) - Constitutional Vitals: Period Temp Pulse Resp BP Sys/Brown Pulse Ox Last 24 Hr 98.1 F-100.8 F 62-93 18-20 95-113/41-67 90-97 Result/EKG - Labs CBC & BMP: 02/23/17 04:32 02/23/17 04:32 Labs: Laboratory Results - last 24 hr 02/23/17 02/23/17 02/23/17 04:32 04:32 04:32 WBC 6.1 RBC 2.74 L Hgb 9.1 L Hct 29.3 L MCV 106.9 H MCH 33 MCHC 31.1 L RDW 15.3 Plt Count 224 D MPV 10.7 Neut % (Auto) 70.1 Lymph % (Auto) 12.9 L [place] % (Auto) 9.8 Eos % (Auto) 6.5 Baso % (Auto) 0.2 Neut # (Auto) 4.3 Lymph # (Auto) 0.8 L [place] # (Auto) 0.6 Eos # (Auto) 0.4 Baso # (Auto) 0.0 Immature Gran % 0.5 Nucleated RBC % 0.3 Immature Gran # 0.03 Nucleated RBCs # 0.02 Platelet Estimate Adequate Hypochromasia Slight Macrocytosis Slight Sodium 140 Potassium 4.0 Chloride 95 L Carbon Dioxide 38 H Anion Gap 11.0 BUN 30 H Creatinine 1.40 H GFR Calculation 50 BUN/Creatinine Ratio 21.00 H Glucose 118 H Calculated Osmolality 285.4 Calcium 7.9 L Magnesium 3.2 H B-Natriuretic Peptide 735 H
[2017-02-23] MEDS ORDERED: SODIUM CHLORIDE 0.9% 250 ML IV ONE (16:38)
[2017-02-23] MEDS: ACETAMINOPHEN 325 MG TABLET PO PRN (21:43)
[2017-02-23] MEDS: PANTOPRAZOLE 40 MG TABLET PO SCH (21:44)
[2017-02-23] MEDS: GABAPENTIN 300 MG CAPSULE PO SCH (21:44)
[2017-02-23] MEDS: AMITRIPTYLINE 25 MG TABLET PO SCH (21:44)
[2017-02-23] MEDS: PRAVASTATIN 40 MG TABLET PO SCH (21:44)
[2017-02-23] MEDS: MONTELUKAST 10 MG TABLET PO SCH (21:44)
[2017-02-24] MEDS: ALBUTEROL/IPRATROPIUM 3 ML NEB RESP TX SCH ×2 (00:09→07:45)
[2017-02-24] MEDS: cefTAZidime 500 MG in SODIUM CHLORIDE 0.9% 100 ML IV SCH ×2 (04:05→13:29)
[2017-02-24] MEDS: DORNASE ALFA 2.5 MG/2.5 ML VIAL RESP TX SCH (07:45)
--- NOTE | 2017-02-24 09:15 | Cardiology Progress Note ---
Assessment and Plan (1) Pneumonia Status: Acute Current Visit: Yes Qualifiers: Pneumonia type: due to unspecified organism Laterality: bilateral Lung location: unspecified part of lung Qualified Code(s): J18.9 - Pneumonia, unspecified organism (2) Atrial fibrillation Status: Chronic Current Visit: Yes Qualifiers: Atrial fibrillation type: chronic Qualified Code(s): I48.2 - Chronic atrial fibrillation Cardiology - PN: Subj Interval history: Cardiology note 87-year-old man admitted with pneumonia and superimposed CHF due to atrial fibrillation diastolic dysfunction. Slept flat last night. Weak but no shortness of breath. O2 sat 95% on 2 L cannula. Blood pressure 110/60. 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
[2017-02-24] MEDS: FUROSEMIDE 40 MG/4 ML VIAL IV SCH ×2 (09:41→13:30)
[2017-02-24] MEDS: MULTIVITAMIN (OCUVITE) TABLET PO SCH (09:42)
[2017-02-24] MEDS: IRON (CARBONYL) 45 MG TABLET PO SCH (09:42)
[2017-02-24] MEDS: CARVEDILOL 6.25 MG TABLET PO SCH (09:42)
[2017-02-24] MEDS: ASPIRIN EC 81 MG TABLET PO SCH (09:42)
[2017-02-24] MEDS: DILTIAZEM CD 180 MG CAPSULE PO SCH (09:42)
[2017-02-24] MEDS: POTASSIUM CHLORIDE 20 MEQ TABLET PO SCH (09:42)
[2017-02-24] MEDS: PYRIDOXINE 100 MG TABLET PO SCH (09:42)
[2017-02-24] MEDS: NYSTATIN/TRIAMCINOLONE CREAM 15 GM TUBE TOP SCH (09:43)
[2017-02-24] MEDS: AZELASTINE NASAL 137 MCG/SPRAY 30 ML BOTTLE BOTH NARES SCH ×2 (09:43→14:50)
[2017-02-24] MEDS: DOCUSATE SODIUM 100 MG CAPSULE PO SCH (09:45)
[2017-02-24] MEDS: CHOLECALCIFEROL 1,000 UNIT TABLET PO SCH (09:45)
[2017-02-24] MEDS: MEROPENEM 500 MG in SODIUM CHLORIDE 0.9% 100 ML IV SCH (09:45)
--- NOTE | 2017-02-24 10:21 | Pulmonology Progress Note ---
Pulmonary - PN: Subj Interval history: Gato Lpoez, ANP-BC, GNP-BC, acting as scribe for Dr. Jareth Guzman Mr. Goldstein is an 87-year-old white male who was admitted 02/16/2017 from [facility]. 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 Followed by Dr. Pickard and Dr. Aidan Champion #3: Atrial fibrillation #4: Hyperlipidemia #5: Gastroesophageal reflux disease #6: History of iron deficiency anemia which in the past has required blood transfusions #7: COPD #8: Arteriosclerotic heart disease #9: History of pleural effusion #10: Diverticulosis of the colon #11: See past history 02/17/2017. Patient was seen today along with Ofe Ramirez RN. Chest x-ray shows that his previously noted infiltrate persists and there appears to be an element of congestive heart failure. BNP is elevated at 725. Will obtain an echocardiogram and start Lasix 40 mg IV twice daily. He is getting daily chest x-rays. Sputum for Gram stain, culture and sensitivity was ordered at admission , however, the patient has not produced sputum for testing thus far. He states he feels better since admission. He is presently being treated with Merrem and Fortaz. 02/20/2017. Patient was seen today along with Lilibeth Garvin RN. Patient's chest x-ray continues to show pneumonia and congestive heart failure. On 02/17/2017 we placed the patient on Lasix 40 mg IV twice daily. He has been diuresing well by report, but is complaining about his increased urination. He followed from a cardiology standpoint by Dr. Mcgovern, so we will consult [facility] cardiology for evaluation and any recommendations that they may have. Echocardiogram done 02/17/[address] Rojo showed 3+ left atrial enlargement, 3+ concentric left ventricular hypertrophy, hyperdynamic LV systolic function with an ejection fraction estimated at 70%, aortic sclerosis without stenosis, mitral annular calcification, 2+ tricuspid regurgitation with a pulmonary artery pressure 41 mmHg. 02/21/2017. The patient could not be awakened to verbal stimuli this morning. Note, he is incredibly hard of feeling hearing and he did not have his hearing aids in place. He did not wake on physical exam. He was sleeping soundly. He has been seen in cardiology consultation by Dr. Berumen. His note has been reviewed. Patient did have a temperature of up to 101.7 last night. We will obtain another urinalysis. The patient has had increased urination secondary to increased Lasix dose. He previously had a condom catheter but removed it last night. 02/22/17. The patient was seen today along with Lila Gutierrez RN. He complains of left maxillary pain and drainage. He states he "always gets this when I'm sick". We will obtain sinus xrays, but start Astelin 2 sprays in each nostril QID. Today's CXR shows that the previously noted infiltrate is improving , but there is a continued right pleural effusion. We have increased his Lasix to 40mg IV Q8H. He is getting daily labs. 02/23/2017. The patient is doing well this morning. He states his breathing more comfortably. He did not complain of the sinuses today. He was started on Astelin yesterday. Sinus x-ray showed no evidence of sinus abnormality. Specifically, no air-fluid level or abnormal soft tissue density. States chest x-ray shows slight improvement when compared to previous x-rays. Yesterday we increased patient's Lasix and he is tolerating this well. He has been afebrile. 02/24/17. The patient was seen this morning along with Fady Bella RN. He states he is feeling much better today. He certainly appears improved. He had two recorded temperatures of 100.9 degrees. His CXR has improved and we suspect this might be secondary to his medications. Medications have been reviewed. Labs have been reviewed. No new labs were drawn today. Cold agglutinins are negative. Legionella is positive. A urine Legionella antigen was ordered on 02/21/17 and the result is pending. Blood cultures are negative. Exam (Progress Note) - Constitutional Vitals: Period Temp Pulse Resp BP Sys/Brown Pulse Ox Last 24 Hr 97.8 F-100.9 F 75-93 16-22 80-110/44-51 90-97 Exam: Chest with mild loose large airway congestion; no appreciable wheeze Heart irregularly irregular Abdomen is nontender nondistended; bowel sounds are positive 4 Extremities with nothing to suggest acute deep venous thrombophlebitis Psychiatric oriented x 3 Neurologic long tract motor function is intact; severely reduced hearing acuity bilaterally Plan: The patient has now met maximum hospital benefit and can safely be discharged home. Please see the discharge note for more information. Results - Labs CBC & BMP: 02/23/17 04:32 02/23/17 04:32
--- NOTE | 2017-02-24 10:22 | Discharge Summary ---
Hospital Course - Hospital Course Hospital Course: Gato Lopez, ANP-BC, GNP-BC, acting as scribe for Dr. Jareth Guzman Mr. Goldstein is an 87-year-old white male who was [place] as a work[place]in [place] of [place] [facility] [place] G[place]. He presented with complaints of increased shortness of breath, JONES, cough, sinus drainage and pyrexia. He stated that he was discharged from [facility] the day before. He was inpatient 02/11/17 through 02/14/17 under the care of the hospitalists. He was treated for acute sinusitis and possible pneumonia. He stated that he felt "terrible". [place] [facility] [place] CXR revealed an acute left upper lung pneumonia and possible left lower lung and right lower lung infiltrates. Given his advanced age, multiple co-morbidities and acute illness, it was felt in his best interest to hospitalize him for further evaluation and care. He was admitted and started on IV antibiotics Fortaz and Merrem. Sputum for Gram stain, culture and sensitivity was ordered at admission, however, the patient never produced a sputum for testing. Over time the infiltrative changes on his chest x-ray have resolved. He has waxing and waning pyrexia, probably suspect that some of this related to his IV antibiotics. His chest x-ray at admission also appeared to show an element of acute congestive heart failure. BNP at admission was 725. Echocardiogram was done 09/[address] Rojo. This showed 3+ left atrial enlargement, 3+ concentric left ventricular hypertrophy, hyperdynamic LV systolic function with an ejection fraction estimated to be 70%, aortic sclerosis without stenosis, mitral annular calcification, 2+ tricuspid regurgitation with a pulmonary artery pressure 41 mmHg plus right atrial pressure. He was seen in cardiology consultation this admission by Dr. Berumen. The patient was gently diuresed and has done well. Patient has known atrial fibrillation but is not a candidate for anticoagulation secondary to history of GI bleeding necessitating transfusion as well as an unsteady gait. During this admission the patient complained of acute left maxillary sinus pain. Sinus x-rays were obtained 02/22/2017 and showed no evidence of sinus abnormality. Specifically, no air-fluid levels or abnormal soft tissue density. Patient was started on Astelin and this appears to be working well. Blood cultures are negative. Cold agglutinins were negative. Legionella antibody drawn 02/16/2017 was positive. On 02/21/2017 a urine for legionella antigen was obtained. At the time of discharge this result is still pending. At discharge, white count is 6100 with 70.1% segs, 12.9% lymphs, 9.8% monos; H& H 10.1/29.3 with mixed indices and top normal red blood cell distribution with; platelet count 224,000; creatinine 1.40, BUN 30, sodium 140, potassium 4.0, magnesium 3.2; BNP 735; liver function tests within normal limits; TSH and free T4 were normal at 0.595 and 1.10 respectively; urinalysis showed no evidence of infection. For more information regarding Mr. Goldstein's past medical history, surgical history, family history, social history, admit labs, admit x-ray and admit exam , please see the admission note dated 02/16/2017. 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 Followed by Dr. Pickard and Dr. Aidan Champion #3: Atrial fibrillation with superimposed acute congestive heart failure secondary to diastolic dysfunction #4: Hyperlipidemia #5: Gastroesophageal reflux disease #6: History of iron deficiency anemia which in the past has required blood transfusions #7: COPD #8: Arteriosclerotic heart disease #9: History of pleural effusion #10: Diverticulosis of the colon #11: See past history Plan: Levaquin 250 mg daily for 7 days, Elavil 25 mg at bedtime, baby aspirin 81 mg every morning, Astelin2 sprays in each nostril 4 times daily, Coreg 6.25 mg twice daily, vitamin D3 5000 units every morning, Cardizem 180 mg twice daily , Lasix 40 mg twice daily as needed peripheral edema, Neurontin 300 mg at bedtime, iron 45 mg every morning, Singulair 10 mg at bedtime, nitroglycerin 0.4 mg sublingual every 5 minutes as needed chest pain, Mycolog cream topically twice daily as needed, Protonix 40 mg approximately 30 minutes to 1 hour prior to supper, K-Dur 20 mEq every morning, Pravachol 80 mg at bedtime, vitamin B6 100 mg daily, Ventolin HFA 2 puffs twice daily as needed, Colace 100 mg twice daily and Ocuvite daily. He has an already scheduled follow-up appointment with Gato Lopez, nurse practitioner, on July 11, 2017. He can keep that appointment. He has been instructed to call as needed could be seen sooner if needed. Specialty Discharge - Follow Up or Referrals Follow up with: Gato Lopez CFNP [Advanced Practice Nurse] - (Keep scheduled appt in July. Patient can call PRN and could be seen sooner if needed.) Discharge Plan - Discharge Data Disposition: Disch To Home/Self Care Condition at Discharge: Stable - Discharge Medications New Nystatin/Triamcinolone Cream [Mycolog Cream] 1 applic TOP BID #1 applic Azelastine Nasal 137 Mcg/[place] [Astelin Nasal [place]] 2 spray BOTH NARES QID # 1 bottle Levofloxacin Tab [Levaquin Tab] 250 mg PO DAILY #7 tablet Continue Docusate Sodium Cap [Colace Cap] 100 mg PO BID Nitroglycerin Sl Tab [Nitrostat] 0.4 mg SL Q5M PRN PRN Reason: Chest Pain Amitriptyline HCl 25 mg PO BEDTIME Montelukast Tab [Singulair Tab] 10 mg PO BEDTIME Gabapentin 300 mg PO BEDTIME Albuterol Sulfate [Ventolin HFA] 90 mcg INH BID PRN PRN Reason: Shortness Of Breath/Wheezing Carvedilol [Coreg] 6.25 mg PO BID #0 Cholecalciferol (Vitamin D3) [Vitamin D3] 5,000 unit PO QAM Potassium Chloride Cap/Tab [K Dur] 20 meq PO QAM Furosemide Tab [Lasix Tab] 40 mg PO BID PRN PRN Reason: Edema Aspirin EC Tab 81 mg PO QAM Pantoprazole Tab [Protonix Tab] 40 mg PO QPM dilTIAZem HCl [Tiazac] 180 mg PO BID Pravastatin Sodium 80 mg PO BEDTIME Vit C/Vit E AC/Lut/Copper/Zinc [Preservision Lutein Softgel] 1 each PO DAILY Albuterol Inhaler [Proventil Inhaler] 2 puff INH Q6HR #1 inhaler Iron (Carbonyl) [Feosol Natural Release Tab] 45 mg PO QAM Pyridoxine Tab [Vitamin B6 Tab] 100 mg PO QAM - Follow Up or Referral - Forms/Instructions Exam - Constitutional Vitals: Period Temp Pulse Resp BP Sys/Brown Pulse Ox Last 24 Hr 97.8 F-100.9 F 75-93 16-22 80-110/44-51 90-97 Discharge Results Procedures and tests throughout hospitalization: Pending Orders 02/21/17 11:12 Legionella Ag, Urine Stat DS: Provider Date of admission: 02/16/17 14:44 Primary care physician: . No PCP Attending physician on admission: Jareth Guzman MD Consults: 02/16/17 16:00 Consult to Dietitian [CONS] Routine Reason for Dietitian: Other 02/19/17 13:20 Consult to Physical Therapy [CONS] Routine Reason for Physical Therapy: Evaluate and Treat 02/20/17 11:28 Consult to Physician [CONS] Routine Comment: known to you, CHF, afib Consulting Provider: Jarrett Mcgovern Person Notified: MYA Date Notified: 02/20/17 Time Notified: 15:43 Discharging clinician: MARTIR Murphy
[2017-02-24 11:19] VITALS: BP 112/64
== END 2017-02-24 15:01 | disposition home or self-care (01) | DRG 291 ==
LOC: N.5E 14:44
PROVIDERS: ADMIT Internal Medicine Pulmonary Disease; ATTEND Internal Medicine Pulmonary Disease

== ENCOUNTER 2017-04-09 18:29 | Observation (INO) ==
[2017-04-09] MEDS ORDERED: NITROGLYCERIN 2% OINT 1 INCH/GM PACK TOP STA (18:54)
[2017-04-09] MEDS ORDERED: ASPIRIN 325 MG TABLET PO STA (18:54)
[2017-04-09] MEDS ORDERED: ONDANSETRON 4 MG/2 ML VIAL IV STA (18:54)
--- NOTE | 2017-04-09 18:59 | Emergency Department Note ---
Arrival - Arrival Chief Complaint: Chest Pain Stated Complaint: CHEST PAINS/SOB/3 NITRO IN 2 HRS ED Nursing Triage Note: Pt c/o chest pain with SOB since last night. States he took NTG with some relief. Pt is on home O2 in triage. Mode of Arrival: Wheelchair Limitations: No Limitations Source: Patient Time Seen by Provider: 04/09/17 18:53 - History of Present Illness HPI Narrative: This 87-year-old white male presents with complaints of left-sided chest pain associated with shortness of breath and nausea which began 24 hours ago. It is been constant since onset varying anywhere from 3 out of 10-8 out of 10. He states he did take a nitro at home and felt that gave him some relief. Of note , in 2014 he had a cardiac catheterization which was negative but does have atrial fibrillation for which he is on diltiazem. As concerns his shortness of breath, he does have long-standing advanced COPD and a past history of lung resection for lung cancer and is on home O2. Although he does have this heaviness as he describes it he appears in no acute medical distress.. Onset (ago): hour(s) Allergies/Adverse Reactions: Allergies Allergy/AdvReac Type Severity Reaction Status Date / Time No Known Allergies Allergy Verified 02/11/17 19:01 Home Medications: Home Medications Medication Instructions Recorded Confirmed Type Docusate Sodium Cap [Colace Cap] 100 mg PO BID 04/30/15 04/09/17 History Nitroglycerin Sl Tab [Nitrostat] 0.4 mg SL Q5M PRN 04/30/15 04/09/17 History Amitriptyline HCl 25 mg PO BEDTIME 05/11/15 04/09/17 History Gabapentin 300 mg PO BEDTIME 12/28/15 04/09/17 History Montelukast Tab [Singulair Tab] 10 mg PO BEDTIME 12/28/15 04/09/17 History Carvedilol [Coreg] 6.25 mg PO BID #0 04/16/16 04/09/17 Rx Aspirin EC Tab 81 mg PO QAM 01/28/17 04/09/17 History Cholecalciferol (Vitamin D3) 5,000 unit PO QAM 01/28/17 04/09/17 History [Vitamin D3] Furosemide Tab [Lasix Tab] 40 mg PO BID PRN 01/28/17 04/09/17 History Iron (Carbonyl) [Feosol Natural 45 mg PO QAM 01/28/17 04/09/17 History Release Tab] Pantoprazole Tab [Protonix Tab] 40 mg PO QPM 01/28/17 04/09/17 History Potassium Chloride Cap/Tab [K Dur] 20 meq PO QAM 01/28/17 04/09/17 History Pravastatin Sodium 80 mg PO BEDTIME 01/28/17 04/09/17 History Pyridoxine Tab [Vitamin B6 Tab] 100 mg PO QAM 01/28/17 04/09/17 History Vit C/Vit E AC/Lut/Copper/Zinc 1 each PO DAILY 01/28/17 04/09/17 History [Preservision Lutein Softgel] dilTIAZem HCl [Tiazac] 180 mg PO BID 01/28/17 04/09/17 History Azelastine Nasal 137 Mcg/[place] 2 spray BOTH NARES QID #1 bottle 02/24/17 Rx [Astelin Nasal [place]] Albuterol Inhaler [Proventil 2 puff INH Q6HR PRN 04/09/17 04/09/17 History Inhaler] Review of System - Review of System 12 point system: reviewed and no additional remarkable complaints except as stated - Review of System Constitutional: Present: as per HPI Respiratory: Present: as per HPI Cardiovascular: Present: as per HPI Gastrointestinal: Present: as per HPI Medical,Surgical,& Family Hx - Medical History Cardio: History of: Cardiac Dysrhythmia (atrial fib,atrial flutter), CHF, CAD, Hypertension No history of: [place], Pacemaker Psychological: No history of: Anxiety Disorders, ADHD, Behavior Problems, Bipolar Disorder, Depression, Previous Suicide Attempt, Psychiatric/Substance Abuse Tx, Schizophrenia, Violent Behavior, Psychiatric Problems Neurology: No history of: Brain Aneurysm, Cerebral Hemorrhage, Cerebrovascular Accident , Cerebral Palsy, Dementia, Migraine, Multiple Sclerosis, Parkinson's Disease, Peripheral Neuropathy, Seizures, TIA, Vertigo, Neurologocal Cancer HEENT: History of: Ear Problem (hard of earing), Eye Problem (macular degeneration), Dental Problems (wears upper and lower dentures) No history of: Glaucoma, Oral Cancer Endocrine: History of: Dyslipidemia Respiratory: History of: COPD, Pneumonia, Lung Cancer (nodule found many years ago), Respiratory Problems (pleuracy,pleural effusions) No history of: Obstructive Sleep Apnea Genitourinary: History of: Prostate Problems Gastrointestinal: History of: Diverticulitis/ Diverticulosis, GERD, Gastrointestinal Bleed Hematology: History of: Anemia No history of: Blood Transfusion Reaction, Blood Disorders Other: History of: Cancer (right lung,skin ca face arms back nose ears), Skin Problems (skin cancers) No history of: Anesthesia Reactions - Surgical History Cardiac Surgeries: Sugical HX of: Cardiac Catheterization (April 15, 2015 - no CAD ) Patient Denies: Carotid Endarterectomy Thoracic Surgeries: Surgical HX of;: Lobectomy (small lung nodule removed small portion of lung) Patient denies;: Organ Transplant Neurologic Surgeries: Patient denies: Brain Aneurysm, Cerebral Hemorrhage HEENT Surgeries: Patient denies: Carotid Endarterectomy, Eye Surgery, Tonsilectomy & Adenoidectomy Abdominal Surgeries: Surgical HX of: Abdominal Surgery, Cholecystectomy, Hernia Repair Reproductive Surgeries: Patient denies;: Genitourinary Surgery - Family History Family History: Reports;: Family Cancer (brothers skin and lung), Family Diabetes (brother), Family Heart Disease (mother and father CHF), Family Hypertension (father), Family Stroke (gm,gd,uncle) Denies;: Family Anesthesia Reaction - Social History Smoking Status: Former smoker Exam Physical Examination: GENERAL: Fragile elderly white male in no acute distress. HEENT: Normocephalic. No trauma. Moist mucous membranes. EOMI. PERRLA. ENT NML NECK: Supple. No adenopathy. CARDIAC: Regular. No murmurs. Heart rate 93 CHEST: Clear to auscultation. No respiratory distress. O2 sat 90% ABDOMEN: Soft. Nontender. Active bowel sounds. EXTREMITIES: No trauma. Normal ROM. No pedal edema. SKIN: No diaphoresis. No rash. NEURO: Alert. Oriented 3. Motor, sensory, vibratory intact. Significant hearing deficit. No focal deficits. Vital Signs: Vital Signs Temperature 97.7 F 04/09/17 18:40 Pulse Rate 93 H 04/09/17 18:40 Respiratory Rate 20 04/09/17 19:02 Blood Pressure 91/44 04/09/17 18:40 O2 Sat by Pulse Oximetry 90 L 04/09/17 18:40 Course - Reevaluation(s) Reevaluation #1: Discussed with the patient and family the need for hospitalization for the failure with or without complicating pneumonia - Consultations Consultation #1: Discussed with hospitalist service who will admit for further evaluation treatment. Results - Labs CBC & BMP: 04/09/17 18:46 04/09/17 18:46 Labs: I have reviewed the laboratory and noted the normal cardiac's. I have likewise noted the significant anemia. - Impressions EKG: Atrial fibrillation at 85 with a right bundle branch block and severe left ventricular hypertrophy with marked strain pattern. Abnormalities of inferior leads which are unchanged since prior EKGs. No acute injury pattern based on interval comparison is noted. - Diagnostic Findings Procedure: Chest x-ray: image reviewed by me, report reviewed by me ( Cardiomegaly with bibasilar edema with possible super infecting pneumonia) Disposition Clinical Impression: Congestive failure, Pneumonia, Anemia Case discussed with: patient, patient's family Disposition: Still a Patient Condition: Guarded Time of Disposition: 19:46
[2017-04-09 19:01] LABS: Basophils % 0.9 % (0.0-0.8); Eosinophils # 0.2 10*3/uL (0.0-0.87); Eosinophils % 3.4 % (0.00-10.9); Hematocrit 31.7 VOL% (42.0-52.0); Immature Granulocytes % 0.2 %; Immature Granulocytes Absolute 0.01 #; Lymphocytes # 1.7 10*3/uL (1.4-4.0); Lymphocytes % 36.2 % (21.2-54.2); Mean Corpuscular HGB Conc 31.5 GM/DL (32-36); Mean Corpuscular Hemoglobin 34 PG (27-34); Mean Corpuscular Volume 106.7 FL (87-102); Mean Platelet Volume 9.8 FL (9.6-12.0); Monocytes # 0.8 10*3/uL (0.11-0.8); Neutrophils % 43.3 % (38.7-73.9); Platelet Count 204 T/CUMM (130-400); Red Blood Count 2.97 MC/CUMM (3.8-5.5); Red Cell Distribution Width 16.5 % (9.3-17.3); White Blood Count 4.7 T/CUMM (4-12)
[2017-04-09 19:13] LABS: INR 1.1; PT Patient Result 11.3 SECS; Partial Thromboplastin Time 29.9 SECS (0-40)
[2017-04-09] MEDS ORDERED: NITROGLYCERIN 2% OINT 1 INCH/GM PACK TOP ONE (19:14)
[2017-04-09] MEDS ORDERED: ONDANSETRON 4 MG/2 ML VIAL ONE (19:14)
[2017-04-09] MEDS ORDERED: ASPIRIN 325 MG TABLET ONE (19:14)
--- NOTE | 2017-04-09 19:20 | XRay Report ---
History: Chest pain. History of lung cancer Date: 04/09/2017 Study: Chest x-ray AP portable Comparison exam: February 23, 2017 chest x-ray There is mild cardiomegaly. The mediastinal contours are similar to the previous study. The pulmonary vasculature is slightly prominent and ill-defined. There is some hazy and patchy parenchymal disease in the lower lung zones, superimposed upon chronic lung disease. There is mild pleural disease bilaterally. Osseous structures are unchanged. Impression: Bibasilar pulmonary edema related to cardiac decompensation, superimposed upon chronic lung disease. Underlying pneumonia cannot be excluded. PROCEDURE INTERPRETED AT [facility] DEPARTMENT OF RADIOLOGY Final Report Signed by: Dr. Cindy Lopez
[2017-04-09 19:23] LABS: Eosinophils 2 % (0-10); Lymphocytes 39 % (20-55); Segmented Neutrophils 46 % (50-85); Total Cells Counted 100
[2017-04-09 19:24] LABS: Anisocytosis Slight; Elliptocytes Few; Hypochromasia Slight; Platelet Estimate Adequate
[2017-04-09 19:32] LABS: Alanine Aminotransferase 21 U/L (16-61); Albumin 3.1 G/DL (3.4-5.0); Alkaline Phosphatase 101 U/L (45-117); Aspartate Amino Transferase 23 U/L (0-37); Blood Urea Nitrogen 17 MG/DL (7-18); Calcium 9.1 MG/DL (8.5-10.1); Glucose 101 MG/DL (74-106); Osmolality,Calculated 284.1 MOS/KG (273-304); Sodium 142 MMOL/L (136-145); Total Protein 6.7 G/DL (6.4-8.3); Troponin I Only 0.033 NG/ML (0.00-0.045)
[2017-04-09] MEDS ORDERED: FUROSEMIDE 40 MG/4 ML VIAL IV STA (19:36)
[2017-04-09] MEDS ORDERED: LEVOFLOXACIN INJ 750 MG in PREMIX 1 EACH IV STA (19:44)
[2017-04-09] MEDS ORDERED: FUROSEMIDE 40 MG/4 ML VIAL ONE (19:44)
[2017-04-09] MEDS ORDERED: ALBUTEROL/IPRATROPIUM 3 ML NEB RESP TX STA (19:44)
[2017-04-09] MEDS ORDERED: LEVOFLOXACIN INJ 150 ML IV ONE (20:05)
--- NOTE | 2017-04-09 20:13 | Hospitalist History & Physical ---
Assessment and Plan - Time spent with patient Time spent with patient: Greater than 30 minutes (1) Chest pain Status: Acute Assessment and plan: Patient had prolonged episode of chest pain today. We will admit him to telemetry for continued observation, cardiac monitoring, serial cardiac biomarkers and EKGs, nitrates, aspirin, beta-blockers, DVT prophylactic doses of Lovenox. Will consult cardiology for their recommendations. Current Visit: Yes (2) Atrial fibrillation Status: Chronic Assessment and plan: Patient has chronic atrial fibrillation. Continue current therapy as his rate is controlled. Current Visit: No Qualifiers: Atrial fibrillation type: chronic Qualified Code(s): I48.2 - Chronic atrial fibrillation (3) Congestive heart failure Status: Chronic Assessment and plan: Patient has a history of congestive heart failure. Recent echo reveals preserved ejection fraction. Continue current care. He appears to be fairly well compensated at this time. Current Visit: No Qualifiers: Congestive heart failure chronicity: acute on chronic (4) Coronary artery disease Status: Chronic Assessment and plan: Patient reports a history of coronary artery disease but states he has never had any intervention. Will consult cardiology for their evaluation and further recommendations. Will continue current medical regimen as well as plans as noted above. Current Visit: No (5) Gastroesophageal reflux disease Status: Chronic Assessment and plan: Continue PPI therapy. Current Visit: No (6) HTN (hypertension) Problem details: report of HTN being fairly stable and well controled on current dosing continue his Bisoprolol-HCTZ dose , monitor bp Status: Chronic Assessment and plan: Patient has history of chronic essential hypertension which is currently well controlled. Continue his current regimen. Current Visit: No (7) COPD (chronic obstructive pulmonary disease) Status: Chronic Assessment and plan: Patient has a history of O2 dependent COPD. He has no increasing shortness of breath or wheezing at this time. We will continue his home O2 as well as home nebulizer therapy. Current Visit: No (8) Adenocarcinoma, lung Status: Chronic Assessment and plan: Patient has had a history of lung carcinoma and is status post radiation treatment in the past. He is followed by Dr. Pickard and Aidan Champion. Current Visit: No History of Present Illness Chief complaint: Chest pain History of present illness: Mr. Triston Stewart is a 87 year old white male who states he began having left anterior dull chest pain with associated shortness of breath and mild nausea beginning last evening and lasting for at least 8 hours constantly. It was not related with exertion and he thought it was heartburn and indigestion however he got no relief with antacids and proton pump inhibitors. He denies any fever , cough, chills, increasing shortness of breath, sputum production, orthopnea, paroxysmal nocturnal dyspnea, increasing lower extremity edema, upper respiratory tract symptoms, melena, hematochezia, hematemesis, dysuria, hematuria, urinary frequency urgency or incontinence. He does have COPD and is on home O2. Has a history of chronic atrial fibrillation but is on no chronic anticoagulation except for aspirin because of a prior GI bleed. He has had a history of lung carcinoma and is received radiation treatment and follow-up by Drs. Aidan Champion and Dr. Pickard. His support worker is Dr. Shemar Guzman, construction equipment mechanic Dr. Calvillo. He states he has had cardiac catheterizations in the past but Dr. Melquiades Shepard. He is also had some type of cardiac evaluation at [facility]. He was evaluated in the emergency room by Dr. Jackson and deemed to be an appropriate candidate for admission. He had a recent admission last month at which time he was treated for community- acquired pneumonia. During that time he also had echocardiogram revealing a hyperdynamic ventricle with ejection fraction of approximately 70%. Home Medications Medication Instructions Recorded Confirmed Type Docusate Sodium Cap [Colace Cap] 100 mg PO BID 04/30/15 04/09/17 History Nitroglycerin Sl Tab [Nitrostat] 0.4 mg SL Q5M PRN 04/30/15 04/09/17 History Amitriptyline HCl 25 mg PO BEDTIME 05/11/15 04/09/17 History Gabapentin 300 mg PO BEDTIME 12/28/15 04/09/17 History Montelukast Tab [Singulair Tab] 10 mg PO BEDTIME 12/28/15 04/09/17 History Carvedilol [Coreg] 6.25 mg PO BID #0 04/16/16 04/09/17 Rx Aspirin EC Tab 81 mg PO QAM 01/28/17 04/09/17 History Cholecalciferol (Vitamin D3) 5,000 unit PO QAM 01/28/17 04/09/17 History [Vitamin D3] Furosemide Tab [Lasix Tab] 40 mg PO BID PRN 01/28/17 04/09/17 History Iron (Carbonyl) [Feosol Natural 45 mg PO QAM 01/28/17 04/09/17 History Release Tab] Pantoprazole Tab [Protonix Tab] 40 mg PO QPM 01/28/17 04/09/17 History Potassium Chloride Cap/Tab [K Dur] 20 meq PO QAM 01/28/17 04/09/17 History Pravastatin Sodium 80 mg PO BEDTIME 01/28/17 04/09/17 History Pyridoxine Tab [Vitamin B6 Tab] 100 mg PO QAM 01/28/17 04/09/17 History Vit C/Vit E AC/Lut/Copper/Zinc 1 each PO DAILY 01/28/17 04/09/17 History [Preservision Lutein Softgel] dilTIAZem HCl [Tiazac] 180 mg PO BID 01/28/17 04/09/17 History Azelastine Nasal 137 Mcg/Guffey 2 spray BOTH NARES QID #1 bottle 02/24/17 Rx [Astelin Nasal Guffey] Albuterol Inhaler [Proventil 2 puff INH Q6HR PRN 04/09/17 04/09/17 History Inhaler] Allergies Allergy/AdvReac Type Severity Reaction Status Date / Time No Known Allergies Allergy Verified 02/11/17 19:01 Medical,Surgical,& Family Hx - Medical History Cardio: History of: Cardiac Dysrhythmia (atrial fib,atrial flutter), CHF, CAD, Hypertension No history of: RI, Pacemaker Psychological: No history of: Anxiety Disorders, ADHD, Behavior Problems, Bipolar Disorder, Depression, Previous Suicide Attempt, Psychiatric/Substance Abuse Tx, Schizophrenia, Violent Behavior, Psychiatric Problems Neurology: No history of: Brain Aneurysm, Cerebral Hemorrhage, Cerebrovascular Accident , Cerebral Palsy, Dementia, Migraine, Multiple Sclerosis, Parkinson's Disease, Peripheral Neuropathy, Seizures, TIA, Vertigo, Neurologocal Cancer HEENT: History of: Ear Problem (hard of earing), Eye Problem (macular degeneration), Dental Problems (wears upper and lower dentures) No history of: Glaucoma, Oral Cancer Endocrine: History of: Dyslipidemia Respiratory: History of: COPD, Pneumonia, Lung Cancer (nodule found many years ago), Respiratory Problems (pleuracy,pleural effusions) No history of: Obstructive Sleep Apnea Genitourinary: History of: Prostate Problems Gastrointestinal: History of: Diverticulitis/ Diverticulosis, GERD, Gastrointestinal Bleed Hematology: History of: Anemia No history of: Blood Transfusion Reaction, Blood Disorders Other: History of: Cancer (right lung,skin ca face arms back nose ears), Skin Problems (skin cancers) No history of: Anesthesia Reactions - Surgical History Cardiac Surgeries: Sugical HX of: Cardiac Catheterization (April 15, 2015 - no CAD ) Patient Denies: Carotid Endarterectomy Thoracic Surgeries: Surgical HX of;: Lobectomy (small lung nodule removed small portion of lung) Patient denies;: Organ Transplant Neurologic Surgeries: Patient denies: Brain Aneurysm, Cerebral Hemorrhage HEENT Surgeries: Patient denies: Carotid Endarterectomy, Eye Surgery, Tonsilectomy & Adenoidectomy Abdominal Surgeries: Surgical HX of: Abdominal Surgery, Cholecystectomy, Hernia Repair Reproductive Surgeries: Patient denies;: Genitourinary Surgery - Family History Family History: Reports;: Family Cancer (brothers skin and lung), Family Diabetes (brother), Family Heart Disease (mother and father CHF), Family Hypertension (father), Family Stroke (gm,gd,uncle) Denies;: Family Anesthesia Reaction - Social History Smoking Status: Former smoker Frequency of Alcohol Use: None Type of Drug Use: None 12 point system: reviewed and no additional remarkable complaints except as stated Exam - Constitutional Vitals: Period Temp Pulse Resp BP Sys/Brown Pulse Ox Last 24 Hr 97.7 F 93 20-20 91/44 90 General appearance: no acute distress - Head Head exam: Present: normocephalic, atraumatic - Eye Eye exam: Present: EOMI Pupils: Present: MARGO - ENT ENT exam: Present: normal exam - Neck Neck exam: Present: normal inspection - Respiratory Respiratory exam: Present: clear to auscultation bilaterally. Absent: rales, rhonchi, wheezes - Cardiovascular Cardiovascular exam: Present: irregular rhythm. Absent: JVD, systolic murmur, tachycardia - GI/Abdominal GI/Abdominal exam: Present: normal bowel sounds, soft. Absent: mass, tenderness , rebound - Extremities Exam Extremities exam: Absent: calf tenderness, edema - Back Exam Back exam: Present: normal inspection - Neurological Exam Neurological exam: Present: alert, oriented X3, CN II-XII intact. Absent: motor sensory deficit - Psychiatric Psychiatric exam: Present: normal affect, normal mood. Absent: agitated, anxious - Skin Skin exam: Present: warm, dry. Absent: erythema, rash Results - Labs CBC & BMP: 04/09/17 18:46 04/09/17 18:46 Lab Results: I have reviewed the past 24 hour labs - EKG EKG shows: atrial fibrillation - Diagnostic Findings Procedure: Chest x-ray: report reviewed by me
[2017-04-09 20:58] LABS: Apearance,Urine CLEAR (Clear); Bilirubin,Urine Negative (Negative); Blood, Urine Negative (Negative); Glucose,Urine (UA) Negative (Negative); Hyaline Casts,Urine 11 /LPF (0-3); Ketones,Urine Negative (Negative); Mucus,Urine Occasional /LPF (Occasional); Nitrite,Urine Negative (Negative); Protein,Urine Negative; Urine Color Straw (Yellow); Urine Specific Gravity 1.005 (1.001-1.035); Urine Urobilinogen < 2.0 EU/DL (0.2-1.0)
[2017-04-09] MEDS ORDERED: GABAPENTIN 300 MG CAPSULE PO SCH (21:57)
[2017-04-09] MEDS ORDERED: FUROSEMIDE 20 MG TABLET PO PRN (21:57)
[2017-04-09] MEDS ORDERED: NITROGLYCERIN SL 0.4 MG TABLET SL PRN (21:57)
[2017-04-09] MEDS ORDERED: ONDANSETRON 4 MG/2 ML VIAL IV PRN (21:57)
[2017-04-09] MEDS: PRAVASTATIN 40 MG TABLET PO SCH (23:12)
[2017-04-09] MEDS: AMITRIPTYLINE 25 MG TABLET PO SCH (23:13)
[2017-04-09] MEDS: DILTIAZEM CD 180 MG CAPSULE PO SCH (23:13)
[2017-04-09] MEDS: CARVEDILOL 6.25 MG TABLET PO SCH (23:13)
[2017-04-09] MEDS: DOCUSATE SODIUM 100 MG CAPSULE PO SCH (23:14)
[2017-04-09] MEDS: MONTELUKAST 10 MG TABLET PO SCH (23:14)
[2017-04-09] MEDS: ENOXAPARIN 40 MG/0.4 ML SYRINGE SUBCUT SCH (23:15)
[2017-04-10] MEDS: AZELASTINE NASAL 137 MCG/SPRAY 30 ML BOTTLE BOTH NARES SCH ×5 (00:04→20:58)
[2017-04-10] MEDS: NITROGLYCERIN 2% OINT 1 INCH/GM PACK TOP SCH ×3 (00:04→12:25)
[2017-04-10] MEDS: ALBUTEROL 2.5 MG/3 ML NEB RESP TX SCH ×4 (00:42→19:27)
--- NOTE | 2017-04-10 02:39 | EKG Report ---
Stationary ECG Study [facility] ER Test Date: 04/09/2017 6:40:09 PM Pat Name: ISREAL MARSHALL Department: Room: 269 Gender: M Choke Reamer: : 1930 Requested by: Ramone Hernandez Order Number: [id number] Reading MD: NENO DELATORRE Intervals [place] Rate: 85 P: 999 IA: 0 QRS: -22 QRSD: 143 T: 146 QT: 389 QTc: 432 Interpretive Statements ATRIAL FIBRILLATION RIGHT BUNDLE BRANCH BLOCK LEFT VENTRICULAR HYPERTROPHY INFERIOR INFARCT, AGE UNDETERMINED MARKED ST DEPRESSION Electronically Signed On 04-10-17 08:53:10 CDT by NENO DELATORRE [email or web address]
[2017-04-10 04:59] LABS: Basophils % 0.5 % (0.0-0.8); Eosinophils # 0.2 10*3/uL (0.0-0.87); Eosinophils % 4.5 % (0.00-10.9); Hematocrit 30.4 VOL% (42.0-52.0); Hemoglobin 9.5 GM/DL (14.0-18.0); Immature Granulocytes % 0.2 %; Immature Granulocytes Absolute 0.01 #; Lymphocytes # 1.8 10*3/uL (1.4-4.0); Lymphocytes % 39.7 % (21.2-54.2); Mean Corpuscular HGB Conc 31.3 GM/DL (32-36); Mean Corpuscular Hemoglobin 33 PG (27-34); Mean Corpuscular Volume 106.7 FL (87-102); Mean Platelet Volume 10.4 FL (9.6-12.0); Monocytes # 0.7 10*3/uL (0.11-0.8); Monocytes % 16.7 % (1.7-12.7); Neutrophils # 1.7 10*3/uL (1.4-7.4); Neutrophils % 38.4 % (38.7-73.9); Platelet Count 199 T/CUMM (130-400); Red Blood Count 2.85 MC/CUMM (3.8-5.5); Red Cell Distribution Width 16.4 % (9.3-17.3); White Blood Count 4.4 T/CUMM (4-12)
[2017-04-10 05:31] LABS: Calcium 8.7 MG/DL (8.5-10.1); Osmolality,Calculated 285.1 MOS/KG (273-304); Potassium 3.6 MMOL/L (3.5-5.1); Risk Ratio 3.45; VLDL CHOLESTEROL 38.8 MG/DL
[2017-04-10 06:41] LABS: Eosinophils 3 % (0-10); Lymphocytes 47 % (20-55); Segmented Neutrophils 36 % (50-85); Total Cells Counted 100
[2017-04-10 06:42] LABS: Hypochromasia 1+
[2017-04-10 06:43] LABS: Macrocytosis 1+; Platelet Estimate Adequate
--- NOTE | 2017-04-10 07:02 | EKG Report ---
Stationary ECG Study [facility] Test Date: 04/10/2017 7:02:43 AM Pat Name: ISREAL MARSHALL Department: Room: 269 Gender: M Hand Flatwork Finisher: ARIANNE : 1930 Requested by: Mary Sullivan Order Number: [id number] Reading MD: NENO DELATORRE Intervals [place] Rate: 70 P: 999 ND: 0 QRS: 22 QRSD: 149 T: 147 QT: 425 QTc: 446 Interpretive Statements ATRIAL FIBRILLATION RIGHT BUNDLE BRANCH BLOCK POSSIBLE LEFT VENTRICULAR HYPERTROPHY MARKED ST DEPRESSION, CONSIDER SUBENDOCARDIAL INJURY Electronically Signed On 04-10-17 08:56:46 CDT by NENO DELATORRE [email or web address]
[2017-04-10] MEDS: CHOLECALCIFEROL 1,000 UNIT TABLET PO SCH (09:02)
[2017-04-10] MEDS: IRON (CARBONYL) 45 MG TABLET PO SCH (09:03)
[2017-04-10] MEDS: ASPIRIN EC 81 MG TABLET PO SCH (09:03)
[2017-04-10] MEDS: PYRIDOXINE 100 MG TABLET PO SCH (09:03)
[2017-04-10] MEDS: POTASSIUM CHLORIDE 20 MEQ TABLET PO SCH (09:03)
[2017-04-10] MEDS: DOCUSATE SODIUM 100 MG CAPSULE PO SCH ×2 (09:03→20:56)
[2017-04-10] MEDS: DILTIAZEM CD 180 MG CAPSULE PO SCH ×2 (09:03→20:56)
[2017-04-10] MEDS: MULTIVITAMIN (OCUVITE) TABLET PO SCH (09:03)
[2017-04-10] MEDS: CARVEDILOL 6.25 MG TABLET PO SCH ×2 (09:06→20:57)
--- NOTE | 2017-04-10 10:52 | Cardiology Consult Note ---
Assessment and Plan - Time spent with patient Time spent with patient: Greater than 30 minutes (1) Atypical chest pain Status: Acute Assessment and plan: SEE PLAN OF CARE LISTED BELOW. Current Visit: Yes (2) Congestive heart failure Status: Acute Assessment and plan: SEE PLAN OF CARE LISTED BELOW. Current Visit: No Qualifiers: Congestive heart failure type: diastolic Congestive heart failure chronicity: acute on chronic Qualified Code(s): I50.33 - Acute on chronic diastolic (congestive) heart failure (3) Dyslipidemia Status: Chronic Assessment and plan: SEE PLAN OF CARE LISTED BELOW. Current Visit: Yes (4) Former smoker Status: Chronic Assessment and plan: SEE PLAN OF CARE LISTED BELOW. Current Visit: Yes (5) COPD (chronic obstructive pulmonary disease) Status: Chronic Assessment and plan: SEE PLAN OF CARE LISTED BELOW. Current Visit: Yes (6) On home oxygen therapy Status: Chronic Assessment and plan: SEE PLAN OF CARE LISTED BELOW. Current Visit: Yes (7) History of lung cancer Status: Chronic Assessment and plan: SEE PLAN OF CARE LISTED BELOW. Current Visit: Yes (8) History of esophageal spasm Status: Chronic Assessment and plan: SEE PLAN OF CARE LISTED BELOW. Current Visit: Yes (9) Pulmonary hypertension Status: Chronic Assessment and plan: SEE PLAN OF CARE LISTED BELOW. Current Visit: Yes (10) Chronic atrial fibrillation Status: Chronic Assessment and plan: SEE PLAN OF CARE LISTED BELOW. Current Visit: Yes (11) History of GI bleed Status: Chronic Assessment and plan: SEE PLAN OF CARE LISTED BELOW. Current Visit: Yes (12) Right bundle branch block Status: Chronic Assessment and plan: SEE PLAN OF CARE LISTED BELOW. Current Visit: Yes History of Present Illness - Data of Consult Patient: known to practice within the last 3 years Consult date: 04/10/17 Requesting Physician: Jareth Guzmán - Consult Narrative Reason for consult: chest pain History of present illness: Traffic Survey Technician: Dr. Mcgovern Mr. Triston Stewart is a 87 year old male who is routinely followed by Dr. Jarrett Mcgovern. Patient has cardiac risk factors significant for advanced age, former smoker (quit in 1989), sedentary lifestyle and dyslipidemia. Patient denies any significant family history of coronary artery disease. Patient has a past medical history of chronic atrial fibrillation (not on chronic anticoagulation due to history of significant GI bleeding), lung cancer (status post radiation therapy and long resection), COPD (wears home oxygen), congestive heart failure, esophageal spasm, pulmonary hypertension, left ventricular hypertrophy and GI bleed. Patient's most recent nuclear stress test was performed April 20, 2015. This revealed perfusion abnormality suspicious for an area of the LAD distribution reversibility or ischemia. Subsequently, patient underwent left heart catheterization April 21, 2015 which revealed angiographically no evidence of significant fixed coronary obstruction. The marginal branch of the circumflex had an ostial area of probably 30% stenosis. The remaining of the coronary arteries were free of significant obstructive lesions. Normal left ventricular size and function noted. Normal end-diastolic pressures at rest. Most recent echocardiogram was performed February 2017 which revealed normal LV systolic function, ejection fraction 70% without wall motion abnormality. 3+ left atrial enlargement. 3+ concentric LVH. 2+ TR with RVSP 41 mmHg suggesting pulmonary hypertension. Diastolic function unable to determine due to atrial fibrillation. Patient last saw Dr. Mcgovern in the cardiology clinic December 2016. At that time, risk and benefits of anticoagulation were discussed with the patient. Due to his history of GI hemorrhage, he declined anticoagulation at that time. He wishes to continue aspirin only. Patient presented to [facility] with complaints of atypical chest pain and shortness of breath. Patient reports that his chest pain awoke him from his sleep Monday night around midnight. He reports that he thought this was indigestion. Reports taking Tums which gave him only little relief. He then took a sublingual nitroglycerin which relieved his chest discomfort for approximately 1 hour. This was accompanied by shortness of breath and nausea. He describes his pain as a mild dull type pain located to his left chest. Radiated to his left shoulder. He rates his pain approximately 3-4 on a scale 1-10. Patient denies exertional component. Unable to identify any specific alleviating or aggravating factors. Reports that his pain lasted approximately 8 hours. Monday, his chest pain persisted and patient became concerned about the need to be further evaluated in the emergency department. Patient has been admitted under hospitalist's service and housed in the telemetry unit. Cardiology has been consulted to further evaluate his chest discomfort. Patient was seen and examined on the telemetry unit. He is currently without chest pain, heaviness or tightness. EKG reveals chronic atrial fibrillation, right bundle branch block and marked ST depression. However, this is unchanged from patient's previous EKG tracings. Cardiac biomarkers have been negative 4. BNP moderately elevated at 559. Triglycerides also elevated at 194. Creatinine noted to be 1.3. Chest x-ray reveals bilateral pulmonary edema and decompensated congestive heart failure. Most recent echocardiogram February 2017 reveals preserved ejection fraction of 70%, LVH, TR and pulmonary hypertension. Diastolic function was unable to be determined due to atrial fibrillation. Patient's chest pain is very atypical in nature. Cardiac biomarkers have been negative and EKG is unchanged. Suspect that this is GI in nature most likely esophageal spasm as patient has a history of this. At this point, we will add Levsin and continue PPI. We will continue to cycle cardiac biomarkers and EKGs in order to formally rule out patient for myocardial infarction. I will discuss with Dr. Mcgovern and await his additional recommendations. ASSESSMENT/PLAN: 1. ATYPICAL CHEST PAIN - Patient's chest pain is very atypical in nature. Cardiac biomarkers have been negative and EKG is unchanged. Suspect that this is GI in nature most likely esophageal spasm as patient has a history of this. At this point, we will add Levsin and Imdur and continue PPI. We will continue to cycle cardiac biomarkers and EKGs in order to formally rule out patient for myocardial infarction. I will discuss with Dr. Mcgovern and await his additional recommendations. 2. ACUTE ON CHRONIC CONGESTIVE HEART FAILURE, DYSTOLIC DYSFUNCTION - Chest x- ray is consistent with decompensated congestive heart failure. This is secondary to diastolic dysfunction. At this point, I will add IV Lasix. I will monitor daily weights and strict I's and O's. I will further discuss with Dr. etienne await his additional recommendations. 3. DYSLIPIDEMIA - Continue lipid-lowering agent. I will order lipid panel. 4. FORMER SMOKER - Patient reports that he quit smoking in 1989. 5. COPD, HOME OXYGEN - Management per attending. 6. HISTORY OF LUNG CANCER, STATUS POST RADIATION - Clinically stable at present. Continue current plan of care. 7. HISTORY OF ESOPHAGEAL SPASM - Suspect that this is the culprit for patient' s atypical chest pain. Levsin and Imdur have been initiated. Will further discuss with Dr. Mcgovern and await his additional recommendations. 8. PULMONARY HYPERTENSION - Pulmonary hypertension noted per recent echo. Continue current plan of care. 9.CHRONIC ATRIAL FIBRILLATION - Patient is currently in atrial fibrillation with a controlled ventricular response. At this point we will continue patient' s current medication regimen and adjust as needed throughout his hospitalization. Patient is not on chronic anticoagulation due to history of GI hemorrhage. Risk and benefits of chronic anticoagulation were reviewed with patient during his last appointment in the cardiology clinic. At that time, he declined anticoagulation. 10.HISTORY OF GI HEMORRHAGE - Clinically stable at present. 11.RIGHT BBB - This is chronic. CC: Tate Cancino Jr., MD - Home Medications and Allergies Home Medications: Home Medications Medication Instructions Recorded Confirmed Type Docusate Sodium Cap [Colace Cap] 100 mg PO BID 04/30/15 04/09/17 History Nitroglycerin Sl Tab [Nitrostat] 0.4 mg SL Q5M PRN 04/30/15 04/09/17 History Amitriptyline HCl 25 mg PO BEDTIME 05/11/15 04/09/17 History Gabapentin 300 mg PO BEDTIME 12/28/15 04/09/17 History Montelukast Tab [Singulair Tab] 10 mg PO BEDTIME 12/28/15 04/09/17 History Carvedilol [Coreg] 6.25 mg PO BID #0 04/16/16 04/09/17 Rx Aspirin EC Tab 81 mg PO QAM 01/28/17 04/09/17 History Cholecalciferol (Vitamin D3) 5,000 unit PO QAM 01/28/17 04/09/17 History [Vitamin D3] Furosemide Tab [Lasix Tab] 40 mg PO BID PRN 01/28/17 04/09/17 History Iron (Carbonyl) [Feosol Natural 45 mg PO QAM 01/28/17 04/09/17 History Release Tab] Pantoprazole Tab [Protonix Tab] 40 mg PO QPM 01/28/17 04/09/17 History Potassium Chloride Cap/Tab [K Dur] 20 meq PO QAM 01/28/17 04/09/17 History Pravastatin Sodium 80 mg PO BEDTIME 01/28/17 04/09/17 History Pyridoxine Tab [Vitamin B6 Tab] 100 mg PO QAM 01/28/17 04/09/17 History Vit C/Vit E AC/Lut/Copper/Zinc 1 each PO DAILY 01/28/17 04/09/17 History [Preservision Lutein Softgel] dilTIAZem HCl [Tiazac] 180 mg PO BID 01/28/17 04/09/17 History Azelastine Nasal 137 Mcg/[place] 2 spray BOTH NARES QID #1 bottle 02/24/17 Rx [Astelin Nasal [place]] Albuterol Inhaler [Proventil 2 puff INH Q6HR PRN 04/09/17 04/09/17 History Inhaler] Allergies/Adverse Reactions: Allergies Allergy/AdvReac Type Severity Reaction Status Date / Time No Known Allergies Allergy Verified 02/11/17 19:01 - Constitutional Constitutional: Present: fatigue. Absent: chills, fever(s), frequent falls, weakness, weight gain, weight loss - Cardiovascular Cardiovascular: Present: chest pain at rest, dyspnea (Chronic), dyspnea on exertion (Chronic), radiating jaw, neck or arm pain. Absent: chest pain with activity, claudication, diaphoresis, edema, lightheadedness, orthopnea, palpitations, PND - Respiratory Respiratory: Present: dyspnea (Chronic), dyspnea on exertion (Chronic). Absent : cough, hemoptysis, wheezing, snoring, pain on inspiration, change in phlegm color - Gastrointestinal Gastrointestinal: Present: nausea. Absent: abdominal pain, coffee ground emesis , heartburn, hematemesis, hematochezia, loose stools, melena, vomiting - Neurological Neurological: Absent: abnormal gait, abnormal speech, behavioral changes, dizziness, paresthesias, syncope Medical,Surgical,& Family Hx - Medical History Cardio: History of: Cardiac Dysrhythmia (atrial fib, atrial flutter), CHF No history of: Pacemaker HEENT: History of: Ear Problem (hard of earing), Eye Problem (macular degeneration), Dental Problems (wears upper and lower dentures) No history of: Oral Cancer Endocrine: History of: Dyslipidemia Respiratory: History of: COPD, Pulmonary Hypertension, Pneumonia, Lung Cancer ( nodule found many years ago), Respiratory Problems (pleuracy,pleural effusions) Genitourinary: History of: Prostate Problems Gastrointestinal: History of: Diverticulitis/ Diverticulosis, GERD, Gastrointestinal Bleed, GI Problems (Esophageal spasm) Hematology: History of: Anemia Other: History of: Cancer (right lung,skin ca face arms back nose ears), Skin Problems (skin cancers) - Surgical History Cardiac Surgeries: Sugical HX of: Cardiac Catheterization (April 15, 2015 - no CAD ) Thoracic Surgeries: Surgical HX of;: Lobectomy (small lung nodule removed small portion of lung) Abdominal Surgeries: Surgical HX of: Abdominal Surgery, Cholecystectomy, Hernia Repair - Family History Family History: Reports;: Family Cancer (brothers skin and lung), Family Diabetes (brother), Family Hypertension (father), Family Stroke (gm,gd,uncle) - Social History Smoking Status: Former smoker Frequency of Alcohol Use: None Type of Drug Use: None Marital Status: Single Lives With:: Alone Functional capacity: independent ambulation Physical Examination Vital Signs Temp Pulse Resp BP Pulse Ox 97.7 F 93 H 20 91/44 90 L 04/09/17 18:40 04/09/17 18:40 04/09/17 18:40 04/09/17 18:40 04/09/17 18:40 Exam: General: Appears well with no apparent distress. Pleasant and cooperative. Appears comfortable. HEENT: Hard of hearing. PERRL, normocephalic, atraumatic. Mucous membranes moist. No jaundice noted. Conjunctiva moist and clear, sclerae anicteric Neck: No JVD/HJR, no thyromegaly or lymphadenopathy noted. Cardiac: Irregular rhythm, controlled rate. Grade 1/6 systolic murmur. Lungs: Clear to auscultation without accessory muscle use to assist the respiratory pattern. Requiring oxygen via nasal cannula. Abdomen: Soft, bowel sounds normoactive. Nontender and nondistended. No abdominal bruit or thrill noted. No masses noted. Extremities: No clubbing, cyanosis noted. No edema noted. Upper extremity pulses 2+. Lower extremity pulses 2+. Capillary refill less than 3 seconds. Neuro: Awake, alert and oriented 3. Moves all extremities well without hemiparesis or paralysis. No essential tremor is appreciated. Result/EKG - Labs CBC & BMP: 04/10/17 04:04 04/10/17 04:04 Lab Results: I have reviewed the past 24 hour labs Labs: Laboratory Results - last 24 hr 04/09/17 04/09/17 04/09/17 18:46 18:46 18:46 WBC RBC Hgb Hct MCV MCH MCHC RDW Plt Count MPV Neut % (Auto) Lymph % (Auto) [place] % (Auto) Eos % (Auto) Baso % (Auto) Neut # (Auto) Lymph # (Auto) [place] # (Auto) Eos # (Auto) Baso # (Auto) Total Counted Immature Gran % Nucleated RBC % Immature Gran # Segmented Neutrophils Lymphocytes Monocytes Eosinophils Basophils Nucleated RBCs # Platelet Estimate Hypochromasia Anisocytosis Macrocytosis Elliptocytes INR 1.1 PT Patient/Control Mix 11.3 Circ Anticoag PTT 29.9 Sodium 142 Potassium 4.0 Chloride 102 Carbon Dioxide 33 H Anion Gap 11.0 BUN 17 Creatinine 1.30 GFR Calculation 55 BUN/Creatinine Ratio 13.00 Glucose 101 Calculated Osmolality 284.1 Calcium 9.1 Total Bilirubin 1.10 H AST 23 ALT 21 Alkaline Phosphatase 101 Total Creatine Kinase 51 CK-MB (CK-2) 1.3 Troponin I 0.033 B-Natriuretic Peptide Total Protein 6.7 Albumin 3.1 L Globulin 3.6 H Albumin/Globulin Ratio 0.8 L Triglycerides Cholesterol LDL Cholesterol VLDL Cholesterol HDL Cholesterol Heart Disease Risk Ratio Urine Color Straw Urine Appearance Clear Urine pH 8.0 Ur Specific [place] 1.005 Urine Protein Negative Urine Glucose (UA) Negative Urine Ketones Negative Urine Blood Negative Urine Nitrate Negative Urine Bilirubin Negative Urine Urobilinogen < 2.0 H Urine Leukocytes Negative Hyaline Casts 11 Urine Mucus Occasional Ur Culture Indicated? Not indicated 04/09/17 04/09/17 04/09/17 18:46 18:46 22:53 WBC 4.7 RBC 2.97 L Hgb 10.0 L Hct 31.7 L MCV 106.7 H MCH 34 MCHC 31.5 L RDW 16.5 Plt Count 204 MPV 9.8 Neut % (Auto) 43.3 Lymph % (Auto) 36.2 [place] % (Auto) 16.0 H Eos % (Auto) 3.4 Baso % (Auto) 0.9 H Neut # (Auto) 2.0 Lymph # (Auto) 1.7 [place] # (Auto) 0.8 Eos # (Auto) 0.2 Baso # (Auto) 0.0 Total Counted 100 Immature Gran % 0.2 Nucleated RBC % 0.0 Immature Gran # 0.01 Segmented Neutrophils 46 L Lymphocytes 39 Monocytes 12 Eosinophils 2 Basophils 1.0 H Nucleated RBCs # 0.00 Platelet Estimate Adequate Hypochromasia Slight Anisocytosis Slight Macrocytosis Elliptocytes Few INR PT Patient/Control Mix Circ Anticoag PTT Sodium Potassium Chloride Carbon Dioxide Anion Gap BUN Creatinine GFR Calculation BUN/Creatinine Ratio Glucose Calculated Osmolality Calcium Total Bilirubin AST ALT Alkaline Phosphatase Total Creatine Kinase CK-MB (CK-2) Troponin I 0.040 B-Natriuretic Peptide 559 H Total Protein Albumin Globulin Albumin/Globulin Ratio Triglycerides Cholesterol LDL Cholesterol VLDL Cholesterol HDL Cholesterol Heart Disease Risk Ratio Urine Color Urine Appearance Urine pH Ur Specific [place] Urine Protein Urine Glucose (UA) Urine Ketones Urine Blood Urine Nitrate Urine Bilirubin Urine Urobilinogen Urine Leukocytes Hyaline Casts Urine Mucus Ur Culture Indicated? 04/10/17 04/10/17 04/10/17 01:21 04:04 04:04 WBC 4.4 RBC 2.85 L Hgb 9.5 L Hct 30.4 L MCV 106.7 H MCH 33 MCHC 31.3 L RDW 16.4 Plt Count 199 MPV 10.4 Neut % (Auto) 38.4 L Lymph % (Auto) 39.7 [place] % (Auto) 16.7 H Eos % (Auto) 4.5 Baso % (Auto) 0.5 Neut # (Auto) 1.7 Lymph # (Auto) 1.8 [place] # (Auto) 0.7 Eos # (Auto) 0.2 Baso # (Auto) 0.0 Total Counted 100 Immature Gran % 0.2 Nucleated RBC % 0.0 Immature Gran # 0.01 Segmented Neutrophils 36 L Lymphocytes 47 Monocytes 12 Eosinophils 3 Basophils 2.0 H Nucleated RBCs # 0.00 Platelet Estimate Adequate Hypochromasia 1+ Anisocytosis Macrocytosis 1+ Elliptocytes INR PT Patient/Control Mix Circ Anticoag PTT Sodium Potassium Chloride Carbon Dioxide Anion Gap BUN Creatinine GFR Calculation BUN/Creatinine Ratio Glucose Calculated Osmolality Calcium Total Bilirubin AST ALT Alkaline Phosphatase Total Creatine Kinase CK-MB (CK-2) Troponin I 0.042 0.040 B-Natriuretic Peptide Total Protein Albumin Globulin Albumin/Globulin Ratio Triglycerides Cholesterol LDL Cholesterol VLDL Cholesterol HDL Cholesterol Heart Disease Risk Ratio Urine Color Urine Appearance Urine pH Ur Specific [place] Urine Protein Urine Glucose (UA) Urine Ketones Urine Blood Urine Nitrate Urine Bilirubin Urine Urobilinogen Urine Leukocytes Hyaline Casts Urine Mucus Ur Culture Indicated? 04/10/17 04:04 WBC RBC Hgb Hct MCV MCH MCHC RDW Plt Count MPV Neut % (Auto) Lymph % (Auto) [place] % (Auto) Eos % (Auto) Baso % (Auto) Neut # (Auto) Lymph # (Auto) [place] # (Auto) Eos # (Auto) Baso # (Auto) Total Counted Immature Gran % Nucleated RBC % Immature Gran # Segmented Neutrophils Lymphocytes Monocytes Eosinophils Basophils Nucleated RBCs # Platelet Estimate Hypochromasia Anisocytosis Macrocytosis Elliptocytes INR PT Patient/Control Mix Circ Anticoag PTT Sodium 142 Potassium 3.6 Chloride 102 Carbon Dioxide 33 H Anion Gap 10.6 BUN 21 H Creatinine 1.30 GFR Calculation 55 BUN/Creatinine Ratio 16.00 Glucose 98 Calculated Osmolality 285.1 Calcium 8.7 Total Bilirubin AST ALT Alkaline Phosphatase Total Creatine Kinase CK-MB (CK-2) Troponin I B-Natriuretic Peptide Total Protein Albumin Globulin Albumin/Globulin Ratio Triglycerides 194 H Cholesterol 145 LDL Cholesterol 83.0 VLDL Cholesterol 38.8 HDL Cholesterol 42 Heart Disease Risk Ratio 3.45 Urine Color Urine Appearance Urine pH Ur Specific [place] Urine Protein Urine Glucose (UA) Urine Ketones Urine Blood Urine Nitrate Urine Bilirubin Urine Urobilinogen Urine Leukocytes Hyaline Casts Urine Mucus Ur Culture Indicated?
--- NOTE | 2017-04-10 13:56 | EKG Report ---
Stationary ECG Study [facility] Test Date: 04/10/2017 1:55:52 PM Pat Name: ISREAL MARSHALL Department: Room: 269 Gender: M Automobile Body Repairer: ARIANNE : 1930 Requested by: Joleen Alonso Order Number: [id number] Reading MD: NENO DELATORRE Intervals [place] Rate: 102 P: 999 NE: 0 QRS: -29 QRSD: 147 T: 145 QT: 371 QTc: 430 Interpretive Statements ATRIAL FIBRILLATION WITH RAPID VENTRICULAR RESPONSE BORDERLINE LEFT AXIS DEVIATION RIGHT BUNDLE BRANCH BLOCK LEFT VENTRICULAR HYPERTROPHY with prominent repol abnorm Electronically Signed On 04-10-17 15:38:39 CDT by NENO DELATORRE [email or web address]
[2017-04-10] MEDS: HYOSCYAMINE 0.125 MG TABLET PO SCH ×2 (14:41→20:58)
[2017-04-10] MEDS: ISOSORBIDE MONONITRATE 20 MG TABLET PO SCH (14:41)
[2017-04-10] MEDS ORDERED: GABAPENTIN 300 MG CAPSULE PO ONE (15:06)
[2017-04-10] MEDS: FUROSEMIDE 40 MG/4 ML VIAL IV SCH (16:13)
--- NOTE | 2017-04-10 17:12 | Hospitalist Progress Note ---
Assessment and Plan (1) Atrial flutter Status: Chronic Assessment and plan: Atrial fibrillation noted. Heart rate is controlled. Current Visit: No (2) Coronary artery disease Status: Chronic Assessment and plan: Followed by cardiology. Current Visit: No (3) Gastroesophageal reflux disease Status: Chronic Current Visit: No (4) HTN (hypertension) Problem details: report of HTN being fairly stable and well controled on current dosing continue his Bisoprolol-HCTZ dose , monitor bp Status: Chronic Current Visit : No (5) Congestive heart failure Status: Acute Assessment and plan: This has improved. Did receive a dose of Lasix today. Will check a BMP in the morning. Current Visit: No Qualifiers: Congestive heart failure type: diastolic Congestive heart failure chronicity: acute on chronic Qualified Code(s): I50.33 - Acute on chronic diastolic (congestive) heart failure Hospitalist: Subjective Interval history: This patient was admitted last night due to atypical chest pain. He had serial cardiac enzymes have been unremarkable. He has been evaluated by cardiology has some elevated BNP. He is started on Lasix therapy. At present he is employed in his room states he feels fine. His only discomfort has been indigestion after his lunch earlier today. No further chest pain or shortness of breath. We will continue to observe for an additional 24 hour possibly be able to go home on tomorrow. Exam - Constitutional Vitals: Period Temp Pulse Resp BP Sys/Brown Pulse Ox Last 24 Hr 97.5 F-99.3 F 67-93 16-20 79-113/41-63 90-99 General appearance: normal weight - Head Head exam: Present: normal inspection - Eye Eye exam: Present: EOMI Pupils: Present: MARGO - ENT ENT exam: Present: normal exam - Neck Neck exam: Present: normal inspection - Respiratory Respiratory exam: Present: clear to auscultation bilaterally - Cardiovascular Cardiovascular exam: Present: regular rate and rhythm - GI/Abdominal GI/Abdominal exam: Present: normal bowel sounds - Extremities Exam Extremities exam: Present: normal inspection - Back Exam Back exam: Present: normal inspection - Neurological Exam Neurological exam: Present: alert, oriented X3, CN II-XII intact - Psychiatric Psychiatric exam: Present: normal affect, normal mood - Skin Skin exam: Present: normal color Results - Labs CBC & BMP: 04/10/17 04:04 04/10/17 04:04 Specialty Discharge - Follow Up or Referrals
[2017-04-10] MEDS ORDERED: PANTOPRAZOLE 40 MG TABLET PO SCH (19:00)
[2017-04-10] MEDS: traMADol 50 MG TABLET PO SCH (20:55)
[2017-04-10] MEDS: ACETAMINOPHEN 325 MG TABLET PO SCH (20:56)
[2017-04-10] MEDS: PRAVASTATIN 40 MG TABLET PO SCH (20:56)
[2017-04-10] MEDS: MONTELUKAST 10 MG TABLET PO SCH (20:57)
[2017-04-10] MEDS: GABAPENTIN 300 MG CAPSULE PO SCH (20:57)
[2017-04-10] MEDS: AMITRIPTYLINE 25 MG TABLET PO SCH (20:58)
[2017-04-10] MEDS: ENOXAPARIN 40 MG/0.4 ML SYRINGE SUBCUT SCH (20:58)
[2017-04-11] MEDS: ALBUTEROL 2.5 MG/3 ML NEB RESP TX SCH ×2 (00:12→07:04)
[2017-04-11 05:05] LABS: Basophils % 0.7 % (0.0-0.8); Eosinophils # 0.2 10*3/uL (0.0-0.87); Eosinophils % 3.6 % (0.00-10.9); Hematocrit 28.6 VOL% (42.0-52.0); Immature Granulocytes % 0.2 %; Immature Granulocytes Absolute 0.01 #; Lymphocytes # 1.7 10*3/uL (1.4-4.0); Lymphocytes % 38.6 % (21.2-54.2); Mean Corpuscular HGB Conc 31.5 GM/DL (32-36); Mean Corpuscular Hemoglobin 34 PG (27-34); Mean Corpuscular Volume 106.3 FL (87-102); Mean Platelet Volume 10.5 FL (9.6-12.0); Monocytes # 0.8 10*3/uL (0.11-0.8); Monocytes % 17.3 % (1.7-12.7); Neutrophils # 1.7 10*3/uL (1.4-7.4); Neutrophils % 39.6 % (38.7-73.9); Platelet Count 172 T/CUMM (130-400); Red Blood Count 2.69 MC/CUMM (3.8-5.5); Red Cell Distribution Width 16.7 % (9.3-17.3); White Blood Count 4.4 T/CUMM (4-12)
[2017-04-11 05:33] LABS: Calcium 8.5 MG/DL (8.5-10.1); Magnesium 2.2 MG/DL (1.8-2.4); Osmolality,Calculated 287.1 MOS/KG (273-304)
[2017-04-11 05:44] LABS: Eosinophils 6 % (0-10); Hypochromasia 1+; Lymphocytes 34 % (20-55); Ovalocytes Slight; Platelet Estimate Normal; Segmented Neutrophils 47 % (50-85); Total Cells Counted 100
[2017-04-11 06:12] LABS: Risk Ratio 3.11; VLDL CHOLESTEROL 21.4 MG/DL
--- NOTE | 2017-04-11 07:36 | EKG Report ---
Stationary ECG Study [facility] Test Date: 04/11/2017 7:35:35 AM Pat Name: ISREAL MARSHALL Department: Room: 269 Gender: M Transport Aircrewman: : 1930 Requested by: Joleen Alonso Order Number: [id number] Reading MD: NENO DELATORRE Intervals [place] Rate: 66 P: 999 NE: 0 QRS: 55 QRSD: 149 T: 221 QT: 429 QTc: 442 Interpretive Statements ATRIAL FIBRILLATION INTRAVENTRICULAR CONDUCTION DELAY Left ventricular hypertrophy Electronically Signed On 04-11-17 07:50:03 CDT by NENO DELATORRE [email or web address]
[2017-04-11] MEDS: CHOLECALCIFEROL 1,000 UNIT TABLET PO SCH (08:43)
[2017-04-11] MEDS: ACETAMINOPHEN 325 MG TABLET PO SCH (08:43)
[2017-04-11] MEDS: ASPIRIN EC 81 MG TABLET PO SCH (08:43)
[2017-04-11] MEDS: MULTIVITAMIN (OCUVITE) TABLET PO SCH (08:43)
[2017-04-11] MEDS: PYRIDOXINE 100 MG TABLET PO SCH (08:43)
[2017-04-11] MEDS: IRON (CARBONYL) 45 MG TABLET PO SCH (08:43)
[2017-04-11] MEDS: HYOSCYAMINE 0.125 MG TABLET PO SCH (08:44)
[2017-04-11] MEDS: traMADol 50 MG TABLET PO SCH (08:44)
[2017-04-11] MEDS: ISOSORBIDE MONONITRATE 20 MG TABLET PO SCH (08:44)
[2017-04-11] MEDS: POTASSIUM CHLORIDE 20 MEQ TABLET PO SCH (08:45)
[2017-04-11] MEDS: DOCUSATE SODIUM 100 MG CAPSULE PO SCH (08:45)
[2017-04-11] MEDS: CARVEDILOL 6.25 MG TABLET PO SCH (08:45)
[2017-04-11] MEDS: AZELASTINE NASAL 137 MCG/SPRAY 30 ML BOTTLE BOTH NARES SCH ×2 (08:45→14:25)
[2017-04-11] MEDS: DILTIAZEM CD 180 MG CAPSULE PO SCH (08:45)
[2017-04-11] MEDS: FUROSEMIDE 40 MG/4 ML VIAL IV SCH (08:46)
[2017-04-11] MEDS: GABAPENTIN 300 MG CAPSULE PO SCH (08:46)
--- NOTE | 2017-04-11 11:26 | Discharge Summary ---
<Henok Bolivar - Last Filed: 04/11/17 12:41> Hospital Course - Hospital Course Hospital Course: Mr. Goldstein is an 87 year old male with who presented to the [place] ED on 04/09 with complaints of having left anterior dull chest pain withassociated shortness of breath and mild nausea beginning the night before and lasting for approximately 8 hours without relief. Patient does have a history of chronic atrial fibrillation which is rate controlled on diltiazem. He was admitted to the telemetry unit for observation and cardiology consultation. His enzymes were trended and remained negative. He has evidence of heart failure and a recent echocardiogram showing normal LV ejection fraction. Cardiology recommended IV lasix, trend BNP and follow response to therapy. The remainder of his hospital course was uncomplicated and the patient continued to improve with this prescribed therapy. He is stable for discharge today on home O2, Lasix 20mg BID, ASA, Coreg and Diltiazem. He should follow up with Dr. Mcgovern, cardiology, in 2-4 weeks for an outpatient stress test. - Time spent with patient Time with patient DS: Greater than 30 minutes Specialty Discharge - Follow Up or Referrals Follow up with: Jarrett Mcgovern MD [Physician] - (schedule patient for outpatient stress test) Discharge Plan - Discharge Data Disposition: Disch To Home/Self Care - Discharge Medications New Acetaminophen Tab [Tylenol Tab] 325 mg PO BID #60 tablet Carvedilol [Coreg] 6.25 mg PO BID tablet Hyoscyamine Tab [Levsin Tab] 0.125 mg PO BID #60 tablet Montelukast Tab [Singulair Tab] 10 mg PO BEDTIME tablet Gabapentin Cap/Tab [Neurontin Cap/Tab] 300 mg PO BID capsule Continue Nitroglycerin Sl Tab [Nitrostat] 0.4 mg SL Q5M PRN PRN Reason: Chest Pain Pravastatin Sodium 80 mg PO BEDTIME Albuterol Inhaler [Proventil Inhaler] 2 puff INH Q6HR PRN #0 inhaler PRN Reason: Shortness Of Breath/Wheezing Amitriptyline HCl 25 mg PO BEDTIME #0 tablet Cholecalciferol (Vitamin D3) [Vitamin D3] 5,000 unit PO QAM #0 tablet Iron (Carbonyl) [Feosol Natural Release Tab] 45 mg PO QAM #0 tablet Montelukast Tab [Singulair Tab] 10 mg PO BEDTIME #0 tablet Potassium Chloride Cap/Tab [K Dur] 20 meq PO QAM #0 tablet Vit C/Vit E AC/Lut/Copper/Zinc [Preservision Lutein Softgel] 1 each PO DAILY #0 tablet dilTIAZem HCl [Tiazac] 180 mg PO BID #0 tablet Pyridoxine Tab [Vitamin B6 Tab] 100 mg PO QAM Azelastine Nasal 137 Mcg/Union [Astelin Nasal Union] 2 spray BOTH NARES QID # 1 bottle Docusate Sodium Cap [Colace Cap] 100 mg PO BID #0 tablet Pantoprazole Tab [Protonix Tab] 40 mg PO QPM #0 tablet Changed Furosemide Tab [Lasix Tab] 20 mg PO BID PRN #45 tablet PRN Reason: Edema No Action Gabapentin 300 mg PO BEDTIME Carvedilol [Coreg] 6.25 mg PO BID #0 Aspirin EC Tab 81 mg PO QAM - Follow Up or Referral Follow Up: Jarrett Mcgovern MD [Physician] - (schedule patient for outpatient stress test) - Forms/Instructions Instructions: Coronary Artery Disease (GEN), Heart Healthy Diet (GEN), Chronic Obstructive Pulmonary Disease (GEN) Exam - Constitutional Vitals: Period Temp Pulse Resp BP Sys/Brown Pulse Ox Last 24 Hr 97.6 F-99.4 F 60-107 18-20 100-116/50-62 92-99 Discharge Results Procedures and tests throughout hospitalization: Pending Orders 04/09/17 22:53 Blood Culture Stat 04/12/17 04:00 XR chest 1V portable Routine BMP w/ Mg [Basic Metabolic Panel w/Mg] IN AM BNP [B-Type Natriuretic Peptide] Routine CBC [Comp Blood Count Auto Diff] IN AM 04/13/17 04:00 BMP w/ Mg [Basic Metabolic Panel w/Mg] IN AM CBC [Comp Blood Count Auto Diff] IN AM 04/14/17 04:00 BMP w/ Mg [Basic Metabolic Panel w/Mg] IN AM CBC [Comp Blood Count Auto Diff] IN AM Labs on day of discharge: Labs from last 24 hours 04/11/17 04/11/17 04/11/17 04:42 04:41 04:41 WBC 4.4 RBC 2.69 L Hgb 9.0 L Hct 28.6 L MCV 106.3 H MCH 34 MCHC 31.5 L RDW 16.7 Plt Count 172 MPV 10.5 Neut % (Auto) 39.6 Lymph % (Auto) 38.6 [place] % (Auto) 17.3 H Eos % (Auto) 3.6 Baso % (Auto) 0.7 Neut # (Auto) 1.7 Lymph # (Auto) 1.7 [place] # (Auto) 0.8 Eos # (Auto) 0.2 Baso # (Auto) 0.0 Total Counted 100 Immature Gran % 0.2 Nucleated RBC % 0.0 Immature Gran # 0.01 Segmented Neutrophils 47 L Lymphocytes 34 Monocytes 13 Eosinophils 6 Nucleated RBCs # 0.00 Platelet Estimate Normal Hypochromasia 1+ Ovalocytes Slight Morphology Comment Sodium 142 Potassium 4.0 Chloride 102 Carbon Dioxide 33 H Anion Gap 11.0 BUN 26 H Creatinine 1.30 GFR Calculation 55 BUN/Creatinine Ratio 20.00 Glucose 95 Calculated Osmolality 287.1 Calcium 8.5 Magnesium 2.2 Triglycerides 107 Cholesterol 146 LDL Cholesterol 84.0 VLDL Cholesterol 21.4 HDL Cholesterol 47 Heart Disease Risk Ratio 3.11 Preliminary micro results at discharge 04/09/17 22:53 Blood Culture - Preliminary Blood No growth at 1 day 04/09/17 22:53 Blood Culture - Preliminary Blood No growth at 1 day DS: Provider Date of admission: 04/09/17 20:02 Primary care physician: . No PCP Attending physician on admission: Gabriella Alejandre MD Consults: 04/09/17 21:57 Consult to Cardiac Rehabilitation [CONS] Routine Reason for Cardiac Rehabilitation: Appt Out Pt Cardiac Rehab Consult to Physician [CONS] Routine Comment: cp Consulting Provider: Cardiology - [facility] Consult to Specialist Group: Cardiology Person Notified: Date Notified: 04/10/17 Time Notified: 07:40 Discharging clinician: Henok CALDERON Expected date of discharge: 04/11/17 <Zofia Bangura - Last Filed: 04/11/17 16:54> Discharge Plan - Forms/Instructions Additional Discharge Instructions: follow up with Dr. Mcgovern in 2-4 weeks Exam - Constitutional General appearance: normal weight, no acute distress - Head Head exam: Present: normal inspection - Eye Eye exam: Present: EOMI Pupils: Present: MARGO - ENT ENT exam: Present: normal exam - Neck Neck exam: Present: normal inspection - Respiratory Respiratory exam: Present: clear to auscultation bilaterally. Absent: rales, rhonchi, wheezes - Cardiovascular Cardiovascular exam: Present: irregular rhythm. Absent: bradycardia, tachycardia - GI/Abdominal GI/Abdominal exam: Present: normal bowel sounds, soft - Neurological Exam Neurological exam: Present: alert, oriented X3 - Psychiatric Psychiatric exam: Present: normal affect, normal mood - Skin Skin exam: Present: normal color Discharge Results - Impressions Patient seen and examined. He is hemodynamically and clinically stable. He does not have any complaints of CP or SOB. Chart reviewed. Dr. Mcgovern called me and noted that patient is safe for discharge. He will follow up with Dr. Mcgovern. I agree that patient is safe for discharge as well. I have reviewed the discharge note by NEGAR Bolivar, and I agree with the documentation. Active Issues: 1. Atypical chest pain: TNI have been negative. He has been seen by cardiology. Thoughts for his chest pain are likely GI/esophageal spasm especially since he has a history of esophageal spasm. Plan is to discharge on levsin/gabapentin/ PPI. He will follow up with Dr. Mcgovern for outpatient stress test. 2. h/o ASCAD: stable; he will be discharged on asa/statin/beta hank. Unsure the reason he is not on an alexus-i; will defer to cardiology. 3. CHF exacerbation, mild. Echo showed normal LVEF. Suspect some diastolic dysfunction. He responded well to parenteral lasix. He has lost about 1.3 kg. He is evolemic on exam. He will be discharged on lasix 20mg bid prn. 4. Chronic a-fib: he is rate controlled. Per notes, anticoagulation was deferred because of history of GIB and because the patient had declined. He will be discharged on asprin/coreg/diltiazem. 5. h/o OCPD:on home O2: stable 6. Disposition: home with follow up with cardiology in 2-4 weeks.
[2017-04-11 12:01] VITALS: BP 94/48
--- NOTE | 2017-04-11 13:02 | Cardiology Progress Note ---
Chasity, Carla Fall RN, am scribing for, and in the presence of, Jarrett Mcgovern MD 12:59. Assessment and Plan - Time spent with patient Time spent with patient: Greater than 30 minutes (1) Atypical chest pain Status: Acute Assessment and plan: 04/10/17: PLAN/RECOMMENDATION: The patient had chest pain for over 24 hours with negative enzymes. It would make the likelihood of this being CAD low. My suspicion is it may be esophageal spasm or muscle skeletal pain Plan: Treat --for esophageal disease/spasm with hyoscyamine, reflux precautions , the proton pump inhibitor, Ismo, higher dose of gabapentin, tramadol, Tylenol- for chest wall pain The patient could have an outpatient Lexiscan Cardiolite done at some point to evaluate for ischemia The patient also has evidence of heart failure and recent echo showing normal LVEF. It seems to be diastolic heart failure Plan: IV Lasix, follow BMP, follow response to therapy. 04/11/17: ASSESSMENT/PLAN: 1. ATYPICAL CHEST PAIN -chest discomfort remains very atypical. Cardiac workup has been benign for acute coronary syndrome. Most likely of GI etiology and suspect esophageal spasm as source of his complaint. Continue hyoscyamine, Imdur, PPI. 2. ACUTE ON CHRONIC DIASTOLIC CHF -clinical findings consistent with congestive heart failure. CHF secondary to diastolic dysfunction with preserved EF of 70% . Continue IV Lasix. Monitor I/O. Monitor daily weights. Daily BMP, and monitor electrolytes and renal function. 3. DYSLIPIDEMIA -FLP unremarkable. Continue current dose of pravastatin. 4. FORMER TOBACCO ABUSE -quit smoking in 1989. Merits and benefits of tobacco cessation reinforced. 5. COPD, CONTINUOUS HOME OXYGEN THERAPY -clinically, this appears stable at this time. Continue as present. 6. HISTORY OF LUNG CA S/P RADIATION THERAPY -clinically, this appears stable. He follows routinely with Dr. Pickard. 7. PULMONARY HYPERTENSION -this is moderate with echocardiogram showing 8. CHRONIC ATRIAL FIBRILLATION -ventricular response well controlled at this time. He is not anticoagulated due to significant GI bleeding in the past. It has recently been offered to him to re-introduce anticoagulant, but per patient wishes, it has been declined. 9. HISTORY OF ESOPHAGEAL SPASM -this is most likely the source for atypical chest discomfort. Continue hyoscyamine and Imdur. Continue PPI. 10. HISTORY OF GI HEMORRHAGE -stable without melena or overt bleeding. Monitor H&H. 11. CHRONIC RIGHT BUNDLE BRANCH BLOCK -chronic, stable. Diastolic heart failure is better with IV diuresis. Will continue home diuretics His chest pain is better. Could be GI or musculoskeletal, less likely progression of CAD . okay with me to discharge home and we will set up an outpatient treadmill/Cardiolite/Lexiscan to evaluate for progression of disease. I conferred care with Dr. Bangura. Thank you for allowing me to participate in this patient's care Current Visit: Yes (2) COPD (chronic obstructive pulmonary disease) Status: Chronic Assessment and plan: SEE PLAN OF CARE LISTED ABOVE. Current Visit: Yes (3) Chronic atrial fibrillation Status: Chronic Assessment and plan: SEE PLAN OF CARE LISTED ABOVE. Current Visit: Yes (4) Dyslipidemia Status: Chronic Assessment and plan: SEE PLAN OF CARE LISTED ABOVE. Current Visit: Yes (5) Former smoker Status: Chronic Assessment and plan: SEE PLAN OF CARE LISTED ABOVE. Current Visit: Yes (6) History of GI bleed Status: Chronic Assessment and plan: SEE PLAN OF CARE LISTED ABOVE. Current Visit: Yes (7) History of esophageal spasm Status: Chronic Assessment and plan: SEE PLAN OF CARE LISTED ABOVE. Current Visit: Yes (8) History of lung cancer Status: Chronic Assessment and plan: SEE PLAN OF CARE LISTED ABOVE. Current Visit: Yes (9) On home oxygen therapy Status: Chronic Assessment and plan: SEE PLAN OF CARE LISTED ABOVE. Current Visit: Yes (10) Pulmonary hypertension Status: Chronic Assessment and plan: SEE PLAN OF CARE LISTED ABOVE. Current Visit: Yes (11) Right bundle branch block Status: Chronic Assessment and plan: SEE PLAN OF CARE LISTED ABOVE. Current Visit: Yes Cardiology - PN: Subj Interval history: PRIMARY VEH[employer]LE [employer]MENT CLEANER: DR. MCGOVERN SUMMARY: Mr. Goldstein is an 87-year-old white male with risk factors significant for: Age, sedentary lifestyle, dyslipidemia, former tobacco use. Past medical history includes chronic atrial fibrillation, COPD with use of home O2, pulmonary hypertension, lung cancer status post radiation therapy with lung resection. He also has a history of congestive heart failure and left ventricular hypertrophy. He is not anticoagulated for stroke prevention as he has had significant GI bleeding in the past also. Most recent nuclear stress testing in April 2015 which was abnormal and suspicious for ischemia and an area of reversibility in LAD distribution. Subsequent cardiac cath in April 2015 showed no evidence of significant or fixed coronary artery obstruction revealing only mild (approximately 30% stenosis) coronary artery disease of ostium of circumflex marginal branch. 2D echo in February 2017 moderate LVH, normal systolic function with EF 70% and no regional wall motion abnormality, mild TR with RVSP 41 mmHg. Patient was admitted to [facility] telemetry unit on April 09 after presenting to the ED with atypical chest pain and shortness of breath which had awakened him from his sleep overnight and he contributed to indigestion. Patient took antacid and sublingual nitro which provided some relief for a brief period of time. Since admission to hospital, he has been ruled out for myocardial infarction. Troponin levels have remained flat ranging 0.04 with a normal CPK. EKG benign for ischemic change. BNP mildly elevated 559. April: Patient seen and examined. There have been no acute findings or changes in hemodynamic status. He is sleeping comfortably at this time, and he arouses easily to verbal stimuli. He is not experiencing any significant shortness of breath, and he reports he feels better today. Patient is using supplemental oxygen. He is not experiencing any further chest pain, tightness, heaviness. Appetite is fair with no nausea or vomiting. He has diuresed fairly well with IV Lasix, and medical record indicates 6 kg weight loss since admission. Borderline hypotensive at times with systolic BP ranging 100-115 mmHg. EKG and cardiac monitoring showed atrial fibrillation, pulse rate 60-70s, chronic RBBB. Labs reviewed. H&H 9.0/28.6 (9.5/30.4). Electrolytes are within acceptable range. Renal function stable with creatinine 1.3 and GFR 55. FLP this morning unremarkable. Exam (Progress Note) - Constitutional Vitals: Period Temp Pulse Resp BP Sys/Brown Pulse Ox Last 24 Hr 97.6 F-99.4 F 60-107 18-20 100-116/50-62 92-99 Exam: General: Appears well with no apparent distress. Pleasant and cooperative. Appears comfortable. Advanced age. HEENT: Hard of hearing. PERRL, normocephalic, atraumatic. Mucous membranes moist. No jaundice noted. Conjunctiva moist and clear, sclerae anicteric Neck: No JVD/HJR, no thyromegaly or lymphadenopathy noted. Cardiac: Irregular rhythm. Grade 1/6 systolic murmur. No tachycardia or bradycardia. Lungs: Clear to auscultation without accessory muscle use to assist the respiratory pattern. No rhonchi, stridor, wheeze, rales. Supplemental oxygen via nasal cannula. Abdomen: Soft, bowel sounds normoactive. Nontender and nondistended. No abdominal bruit or thrill noted. No masses noted. Extremities: No clubbing, cyanosis noted. No edema noted. Upper extremity pulses 2+. Lower extremity pulses 2+. Capillary refill less than 3 seconds. Skin is warm, dry, intact. Neuro: Awake, alert and oriented 3. Moves all extremities well without hemiparesis or paralysis. No essential tremor is appreciated. Patient does not appear to be anxious or depressed. Result/EKG - Labs CBC & BMP: 04/11/17 04:41 04/11/17 04:42 Lab Results: I have reviewed the past 24 hour labs Labs: Laboratory Results - last 24 hr 04/11/17 04/11/17 04/11/17 04:41 04:41 04:42 WBC 4.4 RBC 2.69 L Hgb 9.0 L Hct 28.6 L MCV 106.3 H MCH 34 MCHC 31.5 L RDW 16.7 Plt Count 172 MPV 10.5 Neut % (Auto) 39.6 Lymph % (Auto) 38.6 [place] % (Auto) 17.3 H Eos % (Auto) 3.6 Baso % (Auto) 0.7 Neut # (Auto) 1.7 Lymph # (Auto) 1.7 [place] # (Auto) 0.8 Eos # (Auto) 0.2 Baso # (Auto) 0.0 Total Counted 100 Immature Gran % 0.2 Nucleated RBC % 0.0 Immature Gran # 0.01 Segmented Neutrophils 47 L Lymphocytes 34 Monocytes 13 Eosinophils 6 Nucleated RBCs # 0.00 Platelet Estimate Normal Hypochromasia 1+ Ovalocytes Slight Morphology Comment Sodium 142 Potassium 4.0 Chloride 102 Carbon Dioxide 33 H Anion Gap 11.0 BUN 26 H Creatinine 1.30 GFR Calculation 55 BUN/Creatinine Ratio 20.00 Glucose 95 Calculated Osmolality 287.1 Calcium 8.5 Magnesium 2.2 Triglycerides 107 Cholesterol 146 LDL Cholesterol 84.0 VLDL Cholesterol 21.4 HDL Cholesterol 47 Heart Disease Risk Ratio 3.11 - EKG EKG results: interpreted by me, no acute changes EKG shows: atrial fibrillation Specialty Discharge - Follow Up or Referrals Follow up with: Jarrett Mcgovern MD [Physician] - (schedule patient for outpatient stress test) I, Jarrett Mcgovern MD, personally performed the services described in this documentation, ascribed by Carla Fall RN in my presence, and it is both accurate and complete .
== END 2017-04-11 15:26 | disposition home or self-care (01) ==
LOC: N.ED 18:29 → N.EDINP 18:29 → SUATTDRO 20:02 → N.TELES 20:28
PROVIDERS: ADMIT Family Medicine; ATTEND Internal Medicine

== ENCOUNTER 2017-04-25 11:24 | Observation (INO) ==
[2017-04-25] MEDS ORDERED: ASPIRIN 325 MG TABLET PO STA (11:44)
[2017-04-25] MEDS ORDERED: ENOXAPARIN 100 MG/ML SYRINGE SUBCUT STA (11:44)
--- NOTE | 2017-04-25 11:47 | EKG Report ---
Stationary ECG Study [facility] ER Test Date: 04/25/2017 11:36:08 AM Pat Name: ISREAL MARSHALL Department: Room: Gender: M [employer]ar[employer] Chief: : [id number] Requested by: Ed Dickson Order Number: [id number] Reading MD: ISREAL GAYLE Intervals [place] Rate: 105 P: 999 MS: 0 QRS: 39 QRSD: 141 T: 223 QT: 361 QTc: 422 Interpretive Statements ATRIAL FIBRILLATION WITH RAPID VENTRICULAR RESPONSE RIGHT BUNDLE BRANCH BLOCK POSSIBLE LEFT VENTRICULAR HYPERTROPHY ST DEVIATION AND MARKED T-WAVE ABNORMALITY, CONSIDER ANTEROLATERAL ISCHEMIA ST DEVIATION AND MODERATE T-WAVE ABNORMALITY, CONSIDER INFERIOR ISCHEMIA Electronically Signed On 04-28-17 15:37:34 CDT by ISREAL GAYLE [email or web address]
[2017-04-25] MEDS ORDERED: ONDANSETRON 4 MG/2 ML VIAL IV PRN ×2 (11:49→14:25)
[2017-04-25] MEDS ORDERED: NITROGLYCERIN 2% OINT 1 INCH/GM PACK TOP STA (11:49)
[2017-04-25] MEDS ORDERED: METOPROLOL TARTRATE 5 MG/5 ML VIAL IV STA (11:49)
[2017-04-25] MEDS ORDERED: MORPHINE 2 MG/1 ML SYRINGE IV PRN ×2 (11:49→14:25)
--- NOTE | 2017-04-25 11:51 | Emergency Department Note ---
Fly Gaspar Gwan, am scribing for, and in the presence of, Ed Jarvis MD 11:33 . Simona Gaspar James D, MD, personally performed the services described in this documentation, ascribed by Johan Bill in my presence, and it is both accurate and complete . Arrival - Arrival Chief Complaint: Chest Pain Stated Complaint: chest pain Mode of Arrival: Ambulatory Limitations: No Limitations Source: Patient, Old Records Reviewed, RN Notes Reviewed - History of Present Illness HPI Narrative: Patient is a 87 y/o male who presents to the ED with a c/o chest pain with an onset this morning at 0400. Patient described his discomfort has a pressure over his left breast. He confirmed that he has a hx of Lung CA and that he has received radiation for this. He is followed by Dr. Champion and Dr. Mcgovern. His associated sxs have been slight diaphoresis and SOB. He stated that he takes a low dose aspirin daily. He deines any blood in BM. Patient has a PMHx of CAD, CHF and cardiac dysrhythmia. Onset (ago): hour(s) Consistency: constant Severity: moderate Allergies/Adverse Reactions: Allergies Allergy/AdvReac Type Severity Reaction Status Date / Time No Known Allergies Allergy Verified 04/25/17 11:31 Home Medications: Home Medications Medication Instructions Recorded Confirmed Type Nitroglycerin Sl Tab [Nitrostat] 0.4 mg SL Q5M PRN 04/30/15 04/25/17 History Gabapentin 300 mg PO BEDTIME 12/28/15 04/25/17 History Aspirin EC Tab 81 mg PO QAM 01/28/17 04/25/17 History Pravastatin Sodium 80 mg PO BEDTIME 01/28/17 04/25/17 History Pyridoxine Tab [Vitamin B6 Tab] 100 mg PO QAM 01/28/17 04/25/17 History Acetaminophen Tab [Tylenol Tab] 325 mg PO BID #60 tablet 04/11/17 04/25/17 Rx Albuterol Inhaler [Proventil 2 puff INH Q6HR PRN #0 inhaler 04/11/17 04/25/17 Rx Inhaler] Amitriptyline HCl 25 mg PO BEDTIME #0 tablet 04/11/17 04/25/17 Rx Carvedilol [Coreg] 6.25 mg PO BID tablet 04/11/17 04/25/17 Rx Cholecalciferol (Vitamin D3) 5,000 unit PO QAM #0 tablet 04/11/17 04/25/17 Rx [Vitamin D3] Docusate Sodium Cap [Colace Cap] 100 mg PO BID #0 tablet 04/11/17 04/25/17 Rx Furosemide Tab [Lasix Tab] 20 mg PO BID PRN #45 tablet 04/11/17 04/25/17 Rx Hyoscyamine Tab [Levsin Tab] 0.125 mg PO BID #60 tablet 04/11/17 04/25/17 Rx Iron (Carbonyl) [Feosol Natural 45 mg PO QAM #0 tablet 04/11/17 04/25/17 Rx Release Tab] Montelukast Tab [Singulair Tab] 10 mg PO BEDTIME #0 tablet 04/11/17 04/25/17 Rx Pantoprazole Tab [Protonix Tab] 40 mg PO QPM #0 tablet 04/11/17 04/25/17 Rx Potassium Chloride Cap/Tab [K Dur] 20 meq PO QAM #0 tablet 04/11/17 04/25/17 Rx Vit C/Vit E AC/Lut/Copper/Zinc 1 each PO DAILY #0 tablet 04/11/17 04/25/17 Rx [Preservision Lutein Softgel] dilTIAZem HCl [Tiazac] 180 mg PO BID #0 tablet 04/11/17 04/25/17 Rx Azelastine Nasal 137 Mcg/[place] 2 spray BOTH NARES BID 04/25/17 04/25/17 History [Astelin Nasal [place]] Review of System - Review of System 12 point system: reviewed and no additional remarkable complaints except as stated - Review of System Eyes: Absent: discharge, vision change Head/Ears/Nose/Throat: Absent: earache, nasal drainage Respiratory: Absent: cough, wheezing Cardiovascular: Present: as per HPI, chest pain Gastrointestinal: Absent: abdominal pain Genitourinary male: Absent: urgency, dysuria Musculoskeletal: Absent: arm pain, back pain Medical,Surgical,& Family Hx - Medical History Cardio: History of: Cardiac Dysrhythmia (atrial fib, atrial flutter), CHF, CAD, Hypertension No history of: MD, Pacemaker Psychological: No history of: Anxiety Disorders, ADHD, Behavior Problems, Bipolar Disorder, Depression, Previous Suicide Attempt, Psychiatric/Substance Abuse Tx, Schizophrenia, Violent Behavior, Psychiatric Problems Neurology: No history of: Brain Aneurysm, Cerebral Hemorrhage, Cerebrovascular Accident , Cerebral Palsy, Dementia, Migraine, Multiple Sclerosis, Parkinson's Disease, Peripheral Neuropathy, Seizures, TIA, Vertigo, Neurologocal Cancer HEENT: History of: Ear Problem (hard of earing), Eye Problem (macular degeneration), Dental Problems (wears upper and lower dentures) No history of: Glaucoma, Oral Cancer Endocrine: History of: Dyslipidemia Respiratory: History of: COPD, Pulmonary Hypertension, Pneumonia, Lung Cancer ( nodule found many years ago), Respiratory Problems (pleuracy,pleural effusions) No history of: Obstructive Sleep Apnea Genitourinary: History of: Prostate Problems Gastrointestinal: History of: Diverticulitis/ Diverticulosis, GERD, Gastrointestinal Bleed, GI Problems (Esophageal spasm) Musculoskeletal: No history of: Amputation Hematology: History of: Anemia No history of: Blood Transfusion Reaction, Blood Disorders Other: History of: Cancer (right lung,skin ca face arms back nose ears), Skin Problems (skin cancers) No history of: Anesthesia Reactions - Surgical History Cardiac Surgeries: Sugical HX of: Cardiac Catheterization (April 15, 2015 - no CAD ) Patient Denies: Carotid Endarterectomy Thoracic Surgeries: Surgical HX of;: Lobectomy (small lung nodule removed small portion of lung) Patient denies;: Organ Transplant Neurologic Surgeries: Patient denies: Brain Aneurysm, Cerebral Hemorrhage HEENT Surgeries: Patient denies: Carotid Endarterectomy, Eye Surgery, Tonsilectomy & Adenoidectomy Abdominal Surgeries: Surgical HX of: Abdominal Surgery, Cholecystectomy, Hernia Repair Reproductive Surgeries: Patient denies;: Genitourinary Surgery - Family History Family History: Reports;: Family Cancer (brothers skin and lung), Family Diabetes (brother), Family Heart Disease (mother and father CHF), Family Hypertension (father), Family Stroke (gm,gd,uncle) Denies;: Family Anesthesia Reaction - Social History Smoking Status: Former smoker Exam Physical Examination: GENERAL: This is a male in no apparent distress. VITAL SIGNS: HEENT: Head is normocephalic and atraumatic. Pupils are equally round and reactive to light. Extraocular movement are intact. Oropharynx is benign with moist mucous membranes. NECK: Neck is soft and supple without tenderness. There are no masses. There is no lymphadenopathy. LUNGS: Lungs are clear to auscultation bilaterally. Chest rises symmetrically. There is no chest wall tenderness. CV: Heart is irregularly irregular without murmurs, rubs, or gallops. ABDOMEN: Abdomen is soft, non-tender to palpation. There are no abnormal masses palpated. There is no organomegaly. Bowel sounds are present and active. SKIN: Skin is warm and dry. No rash. EXTREMITIES: Patient has full range of motion without tenderness. There is no pedal edema. NEUROLOGIC: Awake, alert, and oriented x4. Cranial nerves II through XII are grossly intact. There are no motorsensory deficits. PSYCHIATRIC: Normal affect. Normal mood. Vital Signs: Vital Signs Temperature 98.2 F 04/25/17 12:00 Pulse Rate 96 H 04/25/17 12:13 Respiratory Rate 25 H 04/25/17 12:13 Blood Pressure 119/64 04/25/17 12:13 O2 Sat by Pulse Oximetry 93 L 04/25/17 12:13 Course - Consultations Consultation #1: Discussed with hospitalist. Patient will be seen by them in the emergency department and admitted to their service. Time: 12:57 Results - Labs CBC & BMP: 04/25/17 11:45 04/25/17 11:45 Lab Results: I have reviewed the patients labs Labs: Laboratory Tests 04/25/17 04/25/17 11:45 11:45 WBC 4.1 RBC 2.64 L Hgb 9.1 L Hct 28.7 L MCV 108.7 H MCH 35 H MCHC 31.7 L RDW 17.4 H Plt Count 191 [place] % (Auto) 13.3 H Lymph # (Auto) 1.1 L INR 1.0 PT Patient/Control Mix 11.1 Circ Anticoag PTT 28.2 - EKG EKG results: interpreted by ERMD - Impressions EKG: Atrial fib with RVR, rate 105, ST segment depression anteriorly and laterally, right bundle branch block. Normal axis. - Diagnostic Findings Procedure: Chest x-ray: image reviewed by me (Right pleural effusion, unchanged from previous chest x-ray.) Disposition Clinical Impression: Chest pain, Lung cancer, Atrial fibrillation Case discussed with: patient Disposition: Still a Patient Condition: Stable
[2017-04-25] MEDS ORDERED: ENOXAPARIN 80 MG/0.8 ML SYRINGE SUBCUT ONE (11:52)
[2017-04-25] MEDS ORDERED: ASPIRIN 325 MG TABLET ONE (11:52)
[2017-04-25 11:53] LABS: Basophils % 0.2 % (0.0-0.8); Eosinophils # 0.1 10*3/uL (0.0-0.87); Eosinophils % 2.2 % (0.00-10.9); Hematocrit 28.7 VOL% (42.0-52.0); Hemoglobin 9.1 GM/DL (14.0-18.0); Immature Granulocytes % 0.5 %; Immature Granulocytes Absolute 0.02 #; Lymphocytes # 1.1 10*3/uL (1.4-4.0); Lymphocytes % 25.7 % (21.2-54.2); Mean Corpuscular HGB Conc 31.7 GM/DL (32-36); Mean Corpuscular Hemoglobin 35 PG (27-34); Mean Corpuscular Volume 108.7 FL (87-102); Mean Platelet Volume 10.5 FL (9.6-12.0); Monocytes # 0.6 10*3/uL (0.11-0.8); Monocytes % 13.3 % (1.7-12.7); Neutrophils # 2.4 10*3/uL (1.4-7.4); Neutrophils % 58.1 % (38.7-73.9); Platelet Count 191 T/CUMM (130-400); Red Blood Count 2.64 MC/CUMM (3.8-5.5); Red Cell Distribution Width 17.4 % (9.3-17.3); White Blood Count 4.1 T/CUMM (4-12)
[2017-04-25] MEDS ORDERED: METOPROLOL TARTRATE 5 MG/5 ML VIAL IV ONE (11:56)
[2017-04-25] MEDS ORDERED: NITROGLYCERIN 2% OINT 1 INCH/GM PACK TOP ONE (11:56)
[2017-04-25 12:01] LABS: PT Patient Result 11.1 SECS; Partial Thromboplastin Time 28.2 SECS (0-40)
[2017-04-25 12:14] LABS: Band Neutrophils 1 % (0-10); Eosinophils 1 % (0-10); Hypochromasia 1+; Lymphocytes 26 % (20-55); Segmented Neutrophils 61 % (50-85); Total Cells Counted 100
[2017-04-25 12:16] LABS: Macrocytosis Slight; Platelet Estimate Adequate
[2017-04-25 12:17] LABS: Anisocytosis 1+; Microcytosis 1+; Ovalocytes Slight
--- NOTE | 2017-04-25 12:19 | XRay Report ---
Chest, 2 views Comparison 04/09/2017 History is chest pain The heart is enlarged. There is been mild improvement of prior diffuse pulmonary opacities. Mild diffuse reticular and hazy opacities remain with moderate right and small left pleural effusions. Pleural-based density in the mid the right chest laterally remains. Nodular density at the left diaphragm is present on multiple prior studies There is mildly more focal infiltrate or atelectasis in the medial right lung base Impression: 1. Mild improvement with continued diffuse infiltrates versus edema and more prominent pleural effusion underlying consolidation in the right base. Continued follow-up is necessary to exclude underlying mass PROCEDURE INTERPRETED AT [facility] DEPARTMENT OF RADIOLOGY Final Report Signed by: Dr. Jada Serrato
[2017-04-25 12:30] LABS: Albumin 2.9 G/DL (3.4-5.0); Bilirubin,Total 0.8 MG/DL (0.2-1.0); Osmolality,Calculated 282.1 MOS/KG (273-304); Potassium 4.1 MMOL/L (3.5-5.1); Total Protein 6.4 G/DL (6.4-8.3)
[2017-04-25 14:03] LABS: Apearance,Urine CLEAR (Clear); Bilirubin,Urine Negative (Negative); Blood, Urine Negative (Negative); Glucose,Urine (UA) Negative (Negative); Ketones,Urine Negative (Negative); Mucus,Urine Occasional /LPF (Occasional); Nitrite,Urine Negative (Negative); Protein,Urine Negative; RBC,Urine <1 /HPF (0-4); Urine Color Straw (Yellow); Urine Specific Gravity 1.005 (1.001-1.035); Urine Urobilinogen < 2.0 EU/DL (0.2-1.0); WBC,Urine <1 /HPF (0-6)
--- NOTE | 2017-04-25 14:14 | Hospitalist History & Physical ---
Assessment and Plan - Time spent with patient Time spent with patient: Greater than 30 minutes (1) Atypical chest pain Status: Acute Assessment and plan: Patient will be admitted to the telemetry for further evaluation and treatment. Serial troponins, CBC, BMP, lipid panel, magnesium, TSH, hemoglobin A1c. Cardiology has been consulted. Current Visit: No (2) History of lung cancer Status: Chronic Assessment and plan: Patient states that he has a history of both left and right lung cancer. He reports that he was recently treated with radiation 6-8 months ago. He is followed by Dr. Champion. Current Visit: No (3) Atrial fibrillation Status: Chronic Assessment and plan: We have restarted patient's home meds along with Lovenox for anticoagulation. Current Visit: No Qualifiers: Atrial fibrillation type: chronic Qualified Code(s): I48.2 - Chronic atrial fibrillation (4) HTN (hypertension) Problem details: report of HTN being fairly stable and well controled on current dosing continue his Bisoprolol-HCTZ dose , monitor bp Status: Chronic Assessment and plan: Continue patient's home medications. Current Visit: No History of Present Illness Chief complaint: Chest pain History of present illness: Mr. Triston Stewart is a 87 year old white male with risk factors significant for advanced age, congestive heart failure, atrial fibrillation, coronary artery disease, hyperlipidemia who presents to the ED today via EMS with complaints of chest pain and associated shortness of breath with onset 0300 this morning. Patient states that he initially felt a dull ache and pressure over his left breast this morning with some shortness of breath that radiated to his left axilla. He states that he took 3 nitroglycerin tablets with some relief. He notes that he might have been mildly diaphoretic but he does not recall. He rates the pain a 4-6/10 initially and now a 2-3/10. Patient confirms blurry vision, left-sided chest pain, right lower extremity edema. He denies headache , pain on inspiration, abdominal pain, palpitations, near syncope. EKG shows atrial fibrillation with RVR, right bundle branch block and possible LVH. Chest x-ray shows diffuse infiltrates versus edema and more prominent pleural effusion and underlying consolidation in the right base. Patient's BNP today is 568, however this appears to be baseline for this patient as he does have a history of congestive heart failure. Initial troponin is 0.030. Serial troponins are pending. Case has been discussed with Dr. Jarvis, ER physician, and Dr. Alejandre, admitting physician, and the patient will be admitted to the hospital medicine service for further evaluation and treatment. He was admitted to the telemetry floor with a cardiology consultation in the a.m. Patient is a full code. Home meds have been reviewed and reconciled. Of note, the patient does have a history of coronary artery disease and reports his last heart cath was 45 years ago in which time he was told he did have 40-60 % blockage and required no PCI at that time. His last heart cath was done by Dr. Shepard and he is followed by Dr. Mcgovern. Home Medications Medication Instructions Recorded Confirmed Type Nitroglycerin Sl Tab [Nitrostat] 0.4 mg SL Q5M PRN 04/30/15 04/25/17 History Gabapentin 300 mg PO BEDTIME 12/28/15 04/25/17 History Aspirin EC Tab 81 mg PO QAM 01/28/17 04/25/17 History Pravastatin Sodium 80 mg PO BEDTIME 01/28/17 04/25/17 History Pyridoxine Tab [Vitamin B6 Tab] 100 mg PO QAM 01/28/17 04/25/17 History Acetaminophen Tab [Tylenol Tab] 325 mg PO BID #60 tablet 04/11/17 04/25/17 Rx Albuterol Inhaler [Proventil 2 puff INH Q6HR PRN #0 inhaler 04/11/17 04/25/17 Rx Inhaler] Amitriptyline HCl 25 mg PO BEDTIME #0 tablet 04/11/17 04/25/17 Rx Carvedilol [Coreg] 6.25 mg PO BID tablet 04/11/17 04/25/17 Rx Cholecalciferol (Vitamin D3) 5,000 unit PO QAM #0 tablet 04/11/17 04/25/17 Rx [Vitamin D3] Docusate Sodium Cap [Colace Cap] 100 mg PO BID #0 tablet 04/11/17 04/25/17 Rx Furosemide Tab [Lasix Tab] 20 mg PO BID PRN #45 tablet 04/11/17 04/25/17 Rx Hyoscyamine Tab [Levsin Tab] 0.125 mg PO BID #60 tablet 04/11/17 04/25/17 Rx Iron (Carbonyl) [Feosol Natural 45 mg PO QAM #0 tablet 04/11/17 04/25/17 Rx Release Tab] Montelukast Tab [Singulair Tab] 10 mg PO BEDTIME #0 tablet 04/11/17 04/25/17 Rx Pantoprazole Tab [Protonix Tab] 40 mg PO QPM #0 tablet 04/11/17 04/25/17 Rx Potassium Chloride Cap/Tab [K Dur] 20 meq PO QAM #0 tablet 04/11/17 04/25/17 Rx Vit C/Vit E AC/Lut/Copper/Zinc 1 each PO DAILY #0 tablet 04/11/17 04/25/17 Rx [Preservision Lutein Softgel] dilTIAZem HCl [Tiazac] 180 mg PO BID #0 tablet 04/11/17 04/25/17 Rx Azelastine Nasal 137 Mcg/[place] 2 spray BOTH NARES BID 04/25/17 04/25/17 History [Astelin Nasal [place]] Allergies Allergy/AdvReac Type Severity Reaction Status Date / Time No Known Allergies Allergy Verified 04/25/17 11:31 Medical,Surgical,& Family Hx - Medical History Cardio: History of: Cardiac Dysrhythmia (atrial fib, atrial flutter), CHF, CAD, Hypertension No history of: [place], Pacemaker Psychological: No history of: Anxiety Disorders, ADHD, Behavior Problems, Bipolar Disorder, Depression, Previous Suicide Attempt, Psychiatric/Substance Abuse Tx, Schizophrenia, Violent Behavior, Psychiatric Problems Neurology: No history of: Brain Aneurysm, Cerebral Hemorrhage, Cerebrovascular Accident , Cerebral Palsy, Dementia, Migraine, Multiple Sclerosis, Parkinson's Disease, Peripheral Neuropathy, Seizures, TIA, Vertigo, Neurologocal Cancer HEENT: History of: Ear Problem (hard of earing), Eye Problem (macular degeneration), Dental Problems (wears upper and lower dentures) No history of: Glaucoma, Oral Cancer Endocrine: History of: Dyslipidemia Respiratory: History of: COPD, Pulmonary Hypertension, Pneumonia, Lung Cancer ( nodule found many years ago), Respiratory Problems (pleuracy,pleural effusions) No history of: Obstructive Sleep Apnea Genitourinary: History of: Prostate Problems Gastrointestinal: History of: Diverticulitis/ Diverticulosis, GERD, Gastrointestinal Bleed, GI Problems (Esophageal spasm) Musculoskeletal: No history of: Amputation Hematology: History of: Anemia No history of: Blood Transfusion Reaction, Blood Disorders Other: History of: Cancer (right lung,skin ca face arms back nose ears), Skin Problems (skin cancers) No history of: Anesthesia Reactions - Surgical History Cardiac Surgeries: Sugical HX of: Cardiac Catheterization (April 15, 2015 - no CAD ) Patient Denies: Carotid Endarterectomy Thoracic Surgeries: Surgical HX of;: Lobectomy (small lung nodule removed small portion of lung) Patient denies;: Organ Transplant Neurologic Surgeries: Patient denies: Brain Aneurysm, Cerebral Hemorrhage HEENT Surgeries: Patient denies: Carotid Endarterectomy, Eye Surgery, Tonsilectomy & Adenoidectomy Abdominal Surgeries: Surgical HX of: Abdominal Surgery, Cholecystectomy, Hernia Repair Reproductive Surgeries: Patient denies;: Genitourinary Surgery - Family History Family History: Reports;: Family Cancer (brothers skin and lung), Family Diabetes (brother), Family Heart Disease (mother and father CHF), Family Hypertension (father), Family Stroke (gm,gd,uncle) Denies;: Family Anesthesia Reaction - Social History Smoking Status: Former smoker Frequency of Alcohol Use: None Type of Drug Use: None Marital Status: Lives With:: Sibling (Brother and [id number]) Functional capacity: independent ambulation 12 point system: reviewed and no additional remarkable complaints except as stated Exam - Constitutional Vitals: Period Temp Pulse Resp BP Sys/Brown Pulse Ox Last 24 Hr 98.2 F-98.2 F 95-112 22-25 102-137/64-69 92-99 Exam: General appearance: normal weight, mild distress - Head Head exam: Present: normocephalic, atraumatic - Eye Eye exam: Present: EOMI. Absent: conjunctival injection, nystagmus Pupils: Present: MARGO, normal accommodation - ENT ENT exam: Present: normal exam, normal external ear exam - Neck Neck exam: Present: normal inspection. Absent: lymphadenopathy, tenderness, thyromegaly - Respiratory Respiratory exam: Present: clear to auscultation bilaterally. Absent: rales, rhonchi, wheezes - Cardiovascular Cardiovascular exam: Present: A. fib with RVR. Absent: carotid bruit, gallop, rubs - GI/Abdominal GI/Abdominal exam: Present: normal bowel sounds, soft, nontender. Absent: ascites, distended, mass - Extremities Exam Extremities exam: Present: normal inspection, normal capillary refill. Absent: edema - Back Exam Back exam: Absent: CVA tenderness (L), CVA tenderness (R) - Neurological Exam Neurological exam: Present: alert, oriented X3, CN II through XII intact, reflexes normal - Psychiatric Psychiatric exam: Present: normal affect, normal mood - Skin Skin exam: Present: normal color, warm, dry Results - Labs CBC & BMP: 04/25/17 11:45 04/25/17 11:45 Lab Results: I have reviewed the past 24 hour labs - EKG EKG results: interpreted by MAREK EKG shows: atrial fibrillation - Diagnostic Findings Procedure: Chest x-ray: image reviewed by me, report reviewed by me (Pleural effusion in right base)
[2017-04-25] MEDS ORDERED: NITROGLYCERIN SL 0.4 MG TABLET SL PRN (14:24)
[2017-04-25] MEDS ORDERED: FUROSEMIDE 20 MG TABLET PO PRN (14:24)
[2017-04-25] MEDS ORDERED: ZALEPLON 5 MG CAPSULE PO PRN (14:25)
[2017-04-25] MEDS ORDERED: ENOXAPARIN 40 MG/0.4 ML SYRINGE SUBCUT SCH (15:30)
--- NOTE | 2017-04-25 16:16 | Cardiology Consult Note ---
History of Present Illness - Data of Consult Patient: known to practice within the last 3 years Consult date: 04/25/17 Requesting Physician: Henok Bolivar - Consult Narrative Reason for consult: Recurrent chest pain History of present illness: Library Consultant: Dr. Mcgovern PCP: Dr. Champion Mr. Triston Stewart is a 87 year old male who is routinely followed by Dr. Jarrett Mcgovern. Patient has cardiac risk factors significant for advanced age, former smoker (quit in 1989), sedentary lifestyle and dyslipidemia. Patient denies any significant family history of coronary artery disease. Patient has a past medical history of chronic atrial fibrillation (not on chronic anticoagulation due to history of significant GI bleeding), lung cancer (status post radiation therapy and long resection), COPD (wears home oxygen), congestive heart failure, esophageal spasm, pulmonary hypertension, left ventricular hypertrophy and GI bleed. Patient's most recent nuclear stress test was performed April 20, 2015. This revealed perfusion abnormality suspicious for an area of the LAD distribution reversibility or ischemia. Subsequently, patient underwent left heart catheterization April 21, 2015 which revealed angiographically no evidence of significant fixed coronary obstruction. The marginal branch of the circumflex had an ostial area of probably 30% stenosis. The remaining of the coronary arteries were free of significant obstructive lesions. Normal left ventricular size and function noted. Normal end-diastolic pressures at rest. Most recent echocardiogram was performed February 2017 which revealed normal LV systolic function, ejection fraction 70% without wall motion abnormality. 3+ left atrial enlargement. 3+ concentric LVH. 2+ TR with RVSP 41 mmHg suggesting pulmonary hypertension. Diastolic function unable to determine due to atrial fibrillation. Patient last saw Dr. Mcgovern in the cardiology clinic December 2016. At that time, risk and benefits of anticoagulation were discussed with the patient. Due to his history of GI hemorrhage, he declined anticoagulation at that time. He wishes to continue aspirin only. Patient was just recently discharged from hospital April 11, 2017 after presenting with atypical chest pain. Cardiac enzymes were negative. He was instructed to undergo outpatient cardiac stress testing at the cardiovascular [place] [facility] the [facility]. However, he did not show to this appointment. Patient presented to [facility] earlier today with complaints of recurrent chest pain. He describes his pain as a pressure located on the left side of his chest. Associated with diaphoresis and shortness of breath. ASSESSMENT/PLAN 1. ATYPICAL CHEST PAIN - Troponin negative 1. 2. CONGESTIVE HEART FAILURE - Last echocardiogram was performed February 2017. Ejection fraction 70% without wall motion abnormality. BNP 568. Chest x-ray reveals continued diffuse infiltrates versus edema and more prominent pleural effusion noted in the right base. 3. DYSLIPIDEMIA - Continue lipid-lowering agent. Lipid panel added to a.m. labs. 4. FORMER SMOKER - Patient reports that he quit smoking in 1989. 5. COPD, ON HOME O2 - 6. HISTORY OF LUNG CANCER, STATUS POST RADIATION - 7. HISTORY OF ESOPHAGEAL SPASM - 8. HISTORY OF PULMONARY HYPERTENSION - 9. CHRONIC ATRIAL FIBRILLATION - 10.HISTORY OF GI BLEED - 11.CHRONIC RBBB - CC: Gabriella Alejandre MD - Home Medications and Allergies Home Medications: Home Medications Medication Instructions Recorded Confirmed Type Nitroglycerin Sl Tab [Nitrostat] 0.4 mg SL Q5M PRN 04/30/15 04/25/17 History Gabapentin 300 mg PO BEDTIME 12/28/15 04/25/17 History Aspirin EC Tab 81 mg PO QAM 01/28/17 04/25/17 History Pravastatin Sodium 80 mg PO BEDTIME 01/28/17 04/25/17 History Pyridoxine Tab [Vitamin B6 Tab] 100 mg PO QAM 01/28/17 04/25/17 History Acetaminophen Tab [Tylenol Tab] 325 mg PO BID #60 tablet 04/11/17 04/25/17 Rx Albuterol Inhaler [Proventil 2 puff INH Q6HR PRN #0 inhaler 04/11/17 04/25/17 Rx Inhaler] Amitriptyline HCl 25 mg PO BEDTIME #0 tablet 04/11/17 04/25/17 Rx Carvedilol [Coreg] 6.25 mg PO BID tablet 04/11/17 04/25/17 Rx Cholecalciferol (Vitamin D3) 5,000 unit PO QAM #0 tablet 04/11/17 04/25/17 Rx [Vitamin D3] Docusate Sodium Cap [Colace Cap] 100 mg PO BID #0 tablet 04/11/17 04/25/17 Rx Furosemide Tab [Lasix Tab] 20 mg PO BID PRN #45 tablet 04/11/17 04/25/17 Rx Hyoscyamine Tab [Levsin Tab] 0.125 mg PO BID #60 tablet 04/11/17 04/25/17 Rx Iron (Carbonyl) [Feosol Natural 45 mg PO QAM #0 tablet 04/11/17 04/25/17 Rx Release Tab] Montelukast Tab [Singulair Tab] 10 mg PO BEDTIME #0 tablet 04/11/17 04/25/17 Rx Pantoprazole Tab [Protonix Tab] 40 mg PO QPM #0 tablet 04/11/17 04/25/17 Rx Potassium Chloride Cap/Tab [K Dur] 20 meq PO QAM #0 tablet 04/11/17 04/25/17 Rx Vit C/Vit E AC/Lut/Copper/Zinc 1 each PO DAILY #0 tablet 04/11/17 04/25/17 Rx [Preservision Lutein Softgel] dilTIAZem HCl [Tiazac] 180 mg PO BID #0 tablet 04/11/17 04/25/17 Rx Azelastine Nasal 137 Mcg/[place] 2 spray BOTH NARES BID 04/25/17 04/25/17 History [Astelin Nasal [place]] Allergies/Adverse Reactions: Allergies Allergy/AdvReac Type Severity Reaction Status Date / Time No Known Allergies Allergy Verified 04/25/17 11:31 Medical,Surgical,& Family Hx - Medical History Cardio: History of: Cardiac Dysrhythmia (atrial fib, atrial flutter) No history of: CHF, CAD, Hypertension, LA, Pacemaker Psychological: No history of: Anxiety Disorders, ADHD, Behavior Problems, Bipolar Disorder, Depression, Previous Suicide Attempt, Psychiatric/Substance Abuse Tx, Schizophrenia, Violent Behavior, Psychiatric Problems Neurology: No history of: Brain Aneurysm, Cerebral Hemorrhage, Cerebrovascular Accident , Cerebral Palsy, Dementia, Migraine, Multiple Sclerosis, Parkinson's Disease, Peripheral Neuropathy, Seizures, TIA, Vertigo, Neurologocal Cancer HEENT: History of: Ear Problem (hard of earing), Eye Problem (macular degeneration), Dental Problems (wears upper and lower dentures) No history of: Glaucoma, Oral Cancer Endocrine: No history of: Dyslipidemia Respiratory: History of: COPD, Pulmonary Hypertension, Pneumonia, Lung Cancer ( nodule found many years ago), Respiratory Problems (pleuracy,pleural effusions) No history of: Obstructive Sleep Apnea Genitourinary: History of: Prostate Problems Gastrointestinal: History of: Diverticulitis/ Diverticulosis, GERD, Gastrointestinal Bleed, GI Problems (Esophageal spasm) Musculoskeletal: No history of: Amputation Hematology: History of: Anemia No history of: Blood Transfusion Reaction, Blood Disorders Other: History of: Cancer (right lung,skin ca face arms back nose ears), Skin Problems (skin cancers) No history of: Anesthesia Reactions - Surgical History Cardiac Surgeries: Sugical HX of: Cardiac Catheterization (April 15, 2015 - no CAD ) Patient Denies: Carotid Endarterectomy Thoracic Surgeries: Surgical HX of;: Lobectomy (small lung nodule removed small portion of lung) Patient denies;: Organ Transplant Neurologic Surgeries: Patient denies: Brain Aneurysm, Cerebral Hemorrhage HEENT Surgeries: Patient denies: Carotid Endarterectomy, Eye Surgery, Tonsilectomy & Adenoidectomy Abdominal Surgeries: Surgical HX of: Abdominal Surgery, Cholecystectomy, Hernia Repair Reproductive Surgeries: Patient denies;: Genitourinary Surgery - Family History Family History: Reports;: Family Cancer (brothers skin and lung), Family Diabetes (brother), Family Heart Disease (mother and father CHF), Family Hypertension (father), Family Stroke (gm,gd,uncle) Denies;: Family Anesthesia Reaction - Social History Smoking Status: Former smoker Frequency of Alcohol Use: None Type of Drug Use: None Physical Examination Vital Signs Temp Pulse Resp BP Pulse Ox 98.2 F 112 H 22 137/69 92 L 04/25/17 11:24 04/25/17 11:24 04/25/17 11:24 04/25/17 11:24 04/25/17 11:24 Result/EKG - Labs CBC & BMP: 04/25/17 11:45 04/25/17 11:45 Labs: Laboratory Results - last 24 hr 04/25/17 04/25/17 04/25/17 11:44 11:45 11:45 WBC RBC Hgb Hct MCV MCH MCHC RDW Plt Count MPV Neut % (Auto) Lymph % (Auto) [place] % (Auto) Eos % (Auto) Baso % (Auto) Neut # (Auto) Lymph # (Auto) [place] # (Auto) Eos # (Auto) Baso # (Auto) Total Counted Immature Gran % Nucleated RBC % Immature Gran # Segmented Neutrophils Band Neutrophils Lymphocytes Monocytes Eosinophils Basophils Nucleated RBCs # Platelet Estimate Hypochromasia Anisocytosis Microcytosis Macrocytosis Ovalocytes INR 1.0 PT Patient/Control Mix 11.1 Circ Anticoag PTT 28.2 Sodium 142 Potassium 4.1 Chloride 107 Carbon Dioxide 31 Anion Gap 8.1 BUN 12 Creatinine 1.10 GFR Calculation 69 BUN/Creatinine Ratio 10.00 Glucose 104 Calculated Osmolality 282.1 Calcium 9.0 Total Bilirubin 0.80 AST 18 ALT 18 Alkaline Phosphatase 101 Troponin I B-Natriuretic Peptide Total Protein 6.4 Albumin 2.9 L Globulin 3.5 Albumin/Globulin Ratio 0.8 L Lipase 93.0 Urine Color Straw Urine Appearance Clear Urine pH 7.0 Ur Specific [place] 1.005 Urine Protein Negative Urine Glucose (UA) Negative Urine Ketones Negative Urine Blood Negative Urine Nitrate Negative Urine Bilirubin Negative Urine Urobilinogen < 2.0 H Urine Leukocytes Negative Urine RBC <1 Urine WBC <1 Urine Mucus Occasional Ur Culture Indicated? Not indicated 04/25/17 04/25/17 04/25/17 11:45 11:45 11:45 WBC 4.1 RBC 2.64 L Hgb 9.1 L Hct 28.7 L MCV 108.7 H MCH 35 H MCHC 31.7 L RDW 17.4 H Plt Count 191 MPV 10.5 Neut % (Auto) 58.1 Lymph % (Auto) 25.7 [place] % (Auto) 13.3 H Eos % (Auto) 2.2 Baso % (Auto) 0.2 Neut # (Auto) 2.4 Lymph # (Auto) 1.1 L [place] # (Auto) 0.6 Eos # (Auto) 0.1 Baso # (Auto) 0.0 Total Counted 100 Immature Gran % 0.5 Nucleated RBC % 0.0 Immature Gran # 0.02 Segmented Neutrophils 61 Band Neutrophils 1 Lymphocytes 26 Monocytes 10 Eosinophils 1 Basophils 1.0 H Nucleated RBCs # 0.00 Platelet Estimate Adequate Hypochromasia 1+ Anisocytosis 1+ Microcytosis 1+ Macrocytosis Slight Ovalocytes Slight INR PT Patient/Control Mix Circ Anticoag PTT Sodium Potassium Chloride Carbon Dioxide Anion Gap BUN Creatinine GFR Calculation BUN/Creatinine Ratio Glucose Calculated Osmolality Calcium Total Bilirubin AST ALT Alkaline Phosphatase Troponin I 0.030 B-Natriuretic Peptide 568 H Total Protein Albumin Globulin Albumin/Globulin Ratio Lipase Urine Color Urine Appearance Urine pH Ur Specific [place] Urine Protein Urine Glucose (UA) Urine Ketones Urine Blood Urine Nitrate Urine Bilirubin Urine Urobilinogen Urine Leukocytes Urine RBC Urine WBC Urine Mucus Ur Culture Indicated?
--- NOTE | 2017-04-25 16:45 | Cardiology Consult Note ---
Assessment and Plan - Time spent with patient Time spent with patient: Greater than 30 minutes (1) Atrial fibrillation Status: Acute Assessment and plan: SEE PLAN OF CARE LISTED BELOW Current Visit: Yes (2) Chest pain Status: Acute Assessment and plan: SEE PLAN OF CARE LISTED BELOW Current Visit: Yes (3) Lung cancer Status: Chronic Assessment and plan: SEE PLAN OF CARE LISTED BELOW Current Visit: Yes (4) AVM (arteriovenous malformation) Status: Chronic Assessment and plan: SEE PLAN OF CARE LISTED BELOW Current Visit: No (5) SOB (shortness of breath) Status: Chronic Assessment and plan: SEE PLAN OF CARE LISTED BELOW Current Visit: No (6) Adenocarcinoma, lung Status: Chronic Assessment and plan: SEE PLAN OF CARE LISTED BELOW Current Visit: No (7) Atrial fibrillation Status: Chronic Assessment and plan: SEE PLAN OF CARE LISTED BELOW Current Visit: No Qualifiers: Atrial fibrillation type: chronic Qualified Code(s): I48.2 - Chronic atrial fibrillation (8) COPD (chronic obstructive pulmonary disease) Status: Chronic Assessment and plan: SEE PLAN OF CARE LISTED BELOW Current Visit: No (9) Dyslipidemia Status: Chronic Assessment and plan: SEE PLAN OF CARE LISTED BELOW Current Visit: No (10) Former smoker Status: Chronic Assessment and plan: SEE PLAN OF CARE LISTED BELOW Current Visit: No History of Present Illness - Data of Consult Patient: known to practice within the last 3 years Consult date: 04/25/17 Requesting Physician: Jarrett Mcgovern - Consult Narrative Reason for consult: chest pain History of present illness: 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 MCGOVERN PCP: DR. ANGIE Goldstein Jr., 87WM, routinely followed by Dr. Jarrett Mcgovern WITH NO KNOWN HISTORY OF CAD. Risk factors include: advanced age, former smoker (quit in 1989), sedentary lifestyle and dyslipidemia. 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 Pickard (status post radiation therapy) COPD (wears home oxygen), congestive heart failure, esophageal spasm, recurrent pneumonia. Most recent stress test: April 20, 2015 - revealed perfusion abnormality suspicious for an area of the LAD distribution reversibility or ischemia. Subsequently, underwent LHC April 21, 2015 (performed by Dr. Shepard) which revealed angiographically no evidence of significant fixed coronary obstruction. (See LHC in [facility]). Most recent echocardiogram February 2017: EF 70%, 3+ LAE, 3+ concentric LVH, RVSP 41mmHg. Patient was just recently discharged from hospital April 11, 2017 after presenting with atypical chest pain. Cardiac enzymes were negative, EKG unremarkable. He is scheduled for outpatient stress testing next week at [facility]. Last night, patient began to experience chest discomfort located in the left breast area which is difficult to describe, possibly "just pain, pressure." At one point, his left shoulder and neck hurt with movement. He did have some nausea and pain in the left upper quadrant of the abdomen it was reproducible to light palpation. Denies diaphoresis. He can identify no aggravating factors nor any alleviating factors. Unable to write the discomfort on a scale of 1-10. Last evening, took 2 sublingual nitroglycerin and chest pain improved but not entirely resolved. Because he continued to have chest discomfort, he felt as if he should be evaluated and he will return to the emergency department today. Cardiac biomarkers negative, EKG is unchanged since prior EKG. Patient is chronically short of breath and wears home O2. Shortness of breath had significantly worsened when he was discovered to have lung cancer approximately 4-5 months ago. His shortness of breath since his last discharge , simply has not improved. Chest x-ray revealed mild improvement with continued diffuse infiltrates versus edema, more prominent pleural effusion and underlying consolidation in the right base. Continued follow-up is recommended to exclude underlying mass. Patient was previously scheduled for stress testing at [facility] next week. We discussed outpatient stress testing however, he would like to have this performed during this hospital stay. Will verify he continues with PPI. Add lipase, amylase. Will defer further management of the abnormal chest x-ray to attending. Will keep him n.p.o. after midnight tonight, discuss with Dr. Rojo and await additional recommendations. We will go ahead and tentatively schedule him for stress testing. ASSESSMENT/PLAN 1. CHEST PAIN - Troponin negative 1. Continue to cycle as well as follow EKG. Possible Lexiscan stress test in the morning 2. ABNORMAL CXRAY - reveals continued diffuse infiltrates versus edema and more prominent pleural effusion noted in the right base. Continue with oxygen. Will give diuretic, may need further workup with CT chest but will defer to attending. 3. DYSLIPIDEMIA - Continue lipid-lowering agent. LDL 87. 4. FORMER SMOKER - Patient reports that he quit smoking in 1989. 5. COPD, ON HOME O2 - hypoxic when he is not using his oxygen. Continue 6. HISTORY OF LUNG CANCER, STATUS POST RADIATION - followed by Dr. Pickard 7. HISTORY OF ESOPHAGEAL SPASM - 8. HISTORY OF PULMONARY HYPERTENSION -continue current plan of care 9. CHRONIC ATRIAL FIBRILLATION - not a candidate for anticoagulation due to severe GI bleeding requiring transfusion 10. HISTORY OF GI BLEED -prohibits use of aspirin or anticoagulant for stroke prevention. 11. CHRONIC RBBB -EKG unchanged from prior EKG CC: Gabriella Alejandre MD - Home Medications and Allergies Home Medications: Home Medications Medication Instructions Recorded Confirmed Type Nitroglycerin Sl Tab [Nitrostat] 0.4 mg SL Q5M PRN 04/30/15 04/25/17 History Gabapentin 300 mg PO BEDTIME 12/28/15 04/25/17 History Aspirin EC Tab 81 mg PO QAM 01/28/17 04/25/17 History Pravastatin Sodium 80 mg PO BEDTIME 01/28/17 04/25/17 History Pyridoxine Tab [Vitamin B6 Tab] 100 mg PO QAM 01/28/17 04/25/17 History Acetaminophen Tab [Tylenol Tab] 325 mg PO BID #60 tablet 04/11/17 04/25/17 Rx Albuterol Inhaler [Proventil 2 puff INH Q6HR PRN #0 inhaler 04/11/17 04/25/17 Rx Inhaler] Amitriptyline HCl 25 mg PO BEDTIME #0 tablet 04/11/17 04/25/17 Rx Carvedilol [Coreg] 6.25 mg PO BID tablet 04/11/17 04/25/17 Rx Cholecalciferol (Vitamin D3) 5,000 unit PO QAM #0 tablet 04/11/17 04/25/17 Rx [Vitamin D3] Docusate Sodium Cap [Colace Cap] 100 mg PO BID #0 tablet 04/11/17 04/25/17 Rx Furosemide Tab [Lasix Tab] 20 mg PO BID PRN #45 tablet 04/11/17 04/25/17 Rx Hyoscyamine Tab [Levsin Tab] 0.125 mg PO BID #60 tablet 04/11/17 04/25/17 Rx Iron (Carbonyl) [Feosol Natural 45 mg PO QAM #0 tablet 04/11/17 04/25/17 Rx Release Tab] Montelukast Tab [Singulair Tab] 10 mg PO BEDTIME #0 tablet 04/11/17 04/25/17 Rx Pantoprazole Tab [Protonix Tab] 40 mg PO QPM #0 tablet 04/11/17 04/25/17 Rx Potassium Chloride Cap/Tab [K Dur] 20 meq PO QAM #0 tablet 04/11/17 04/25/17 Rx Vit C/Vit E AC/Lut/Copper/Zinc 1 each PO DAILY #0 tablet 04/11/17 04/25/17 Rx [Preservision Lutein Softgel] dilTIAZem HCl [Tiazac] 180 mg PO BID #0 tablet 04/11/17 04/25/17 Rx Azelastine Nasal 137 Mcg/[place] 2 spray BOTH NARES BID 04/25/17 04/25/17 History [Astelin Nasal [place]] Allergies/Adverse Reactions: Allergies Allergy/AdvReac Type Severity Reaction Status Date / Time No Known Allergies Allergy Verified 04/25/17 11:31 Review of systems: REVIEW OF SYSTEMS: - Constitutional Constitutional: Present: Fatigue. Absent: syncope, anorexia, night sweats - EENT Eyes: Absent: blurry vision, loss of vision, diplopia Ears: decreased hearing. Denies ear pain, ear discharge - Cardiovascular Cardiovascular: Present: chest pain at rest. Chronic dyspnea at rest and with exertion. Denies edema or palpitations. Absent: chest pain with deep breath, claudication - Respiratory Respiratory: Present: JONES, cough, dyspnea at rest. Absent: wheezing, hemoptysis , orthopnea change in phlegm color - Gastrointestinal Gastrointestinal: Denies constipation. Left upper abdominal quadrant burning and tenderness to palpation. Nausea absent: hematemesis, hematochezia, melena, change in bowel habits. - Genitourinary Genitourinary: Absent: difficulty urinating, dysuria, urinary hesitancy, flank pain - Musculoskeletal Musculoskeletal: Present: back pain Absent: joint swelling, muscle cramps, muscle weakness - Neurological Neurological: Present: Poor gait without frequent falls. Absent: dizziness, hemiparesis - Psychiatric Psychiatric: Absent: anxiety, depression, difficulty concentrating - Endocrine Endocrine: Present: fatigue. Absent: cold intolerance, heat intolerance, polyuria, polyphagia, polydipsia - Hematologic/Lymphatic Hematologic/Lymphatic: Present: easy bruising. Absent: easy bleeding -Integumentary Integumentary: Absent: lesions, rashes, skin breakdown Medical,Surgical,& Family Hx - Medical History Cardio: History of: Cardiac Dysrhythmia (atrial fib, atrial flutter) No history of: CHF, CAD, Hypertension, [place], Pacemaker Psychological: No history of: Anxiety Disorders, ADHD, Behavior Problems, Bipolar Disorder, Depression, Previous Suicide Attempt, Psychiatric/Substance Abuse Tx, Schizophrenia, Violent Behavior, Psychiatric Problems Neurology: No history of: Brain Aneurysm, Cerebral Hemorrhage, Cerebrovascular Accident , Cerebral Palsy, Dementia, Migraine, Multiple Sclerosis, Parkinson's Disease, Peripheral Neuropathy, Seizures, TIA, Vertigo, Neurologocal Cancer HEENT: History of: Ear Problem (hard of earing), Eye Problem (macular degeneration), Dental Problems (wears upper and lower dentures) No history of: Glaucoma, Oral Cancer Endocrine: No history of: Dyslipidemia Respiratory: History of: COPD, Pulmonary Hypertension, Pneumonia, Lung Cancer ( nodule found many years ago), Respiratory Problems (pleuracy,pleural effusions) No history of: Obstructive Sleep Apnea Genitourinary: History of: Prostate Problems Gastrointestinal: History of: Diverticulitis/ Diverticulosis, GERD, Gastrointestinal Bleed, GI Problems (Esophageal spasm) Musculoskeletal: No history of: Amputation Hematology: History of: Anemia No history of: Blood Transfusion Reaction, Blood Disorders Other: History of: Cancer (right lung,skin ca face arms back nose ears), Skin Problems (skin cancers) No history of: Anesthesia Reactions - Surgical History Cardiac Surgeries: Sugical HX of: Cardiac Catheterization (April 15, 2015 - no CAD ) Patient Denies: Carotid Endarterectomy Thoracic Surgeries: Surgical HX of;: Lobectomy (small lung nodule removed small portion of lung) Patient denies;: Organ Transplant Neurologic Surgeries: Patient denies: Brain Aneurysm, Cerebral Hemorrhage HEENT Surgeries: Patient denies: Carotid Endarterectomy, Eye Surgery, Tonsilectomy & Adenoidectomy Abdominal Surgeries: Surgical HX of: Abdominal Surgery, Cholecystectomy, Hernia Repair Reproductive Surgeries: Patient denies;: Genitourinary Surgery - Family History Family History: Reports;: Family Cancer (brothers skin and lung), Family Diabetes (brother), Family Heart Disease (mother and father CHF), Family Hypertension (father), Family Stroke (gm,gd,uncle) Denies;: Family Anesthesia Reaction - Social History Smoking Status: Former smoker Frequency of Alcohol Use: None Type of Drug Use: None Physical Examination Vital Signs Temp Pulse Resp BP Pulse Ox 98.2 F 112 H 22 137/69 92 L 04/25/17 11:24 04/25/17 11:24 04/25/17 11:24 04/25/17 11:24 04/25/17 11:24 General: [Appears his stated age] [Pleasant and cooperative. ] [Appears comfortable.] HEENT: [Bilateral arcus, normocephalic, atraumatic. Mucous membranes moist. No jaundice noted. Conjunctiva moist and clear, sclerae anicteric] Neck: No JVD/HJR, no thyromegaly or lymphadenopathy noted. No carotid bruit appreciated Cardiac: [Regular rate and rhythm.] [No obvious murmur rub or gallop.] Lungs: [Rhonchi noted with tachypnea, mild. ] Oxygen in use via nasal cannula Abdomen: Soft, bowel sounds normoactive. Nontender and nondistended. No abdominal bruit or thrill noted. No masses noted. Musculoskeletal: No fluid collection. Decreased range of motion is noted. Extremities: No clubbing, cyanosis noted. [ No edema noted.] Upper extremity pulses 2+. Lower extremity pulses 2+. Capillary refill less than 3 seconds. Skin: No unusual lesions or rashes. No skin breakdown appreciated. Neuro: Awake, alert and oriented 3. Moves all extremities well without hemiparesis or paralysis. No essential tremor is appreciated. Result/EKG - Labs CBC & BMP: 04/25/17 11:45 04/25/17 11:45 Lab Results: I have reviewed the past 24 hour labs Labs: Laboratory Results - last 24 hr 04/25/17 04/25/17 04/25/17 11:44 11:45 11:45 WBC RBC Hgb Hct MCV MCH MCHC RDW Plt Count MPV Neut % (Auto) Lymph % (Auto) Perry % (Auto) Eos % (Auto) Baso % (Auto) Neut # (Auto) Lymph # (Auto) Perry # (Auto) Eos # (Auto) Baso # (Auto) Total Counted Immature Gran % Nucleated RBC % Immature Gran # Segmented Neutrophils Band Neutrophils Lymphocytes Monocytes Eosinophils Basophils Nucleated RBCs # Platelet Estimate Hypochromasia Anisocytosis Microcytosis Macrocytosis Ovalocytes INR 1.0 PT Patient/Control Mix 11.1 Circ Anticoag PTT 28.2 Sodium 142 Potassium 4.1 Chloride 107 Carbon Dioxide 31 Anion Gap 8.1 BUN 12 Creatinine 1.10 GFR Calculation 69 BUN/Creatinine Ratio 10.00 Glucose 104 Calculated Osmolality 282.1 Calcium 9.0 Total Bilirubin 0.80 AST 18 ALT 18 Alkaline Phosphatase 101 Troponin I B-Natriuretic Peptide Total Protein 6.4 Albumin 2.9 L Globulin 3.5 Albumin/Globulin Ratio 0.8 L Lipase 93.0 Urine Color Straw Urine Appearance Clear Urine pH 7.0 Ur Specific [place] 1.005 Urine Protein Negative Urine Glucose (UA) Negative Urine Ketones Negative Urine Blood Negative Urine Nitrate Negative Urine Bilirubin Negative Urine Urobilinogen < 2.0 H Urine Leukocytes Negative Urine RBC <1 Urine WBC <1 Urine Mucus Occasional Ur Culture Indicated? Not indicated 04/25/17 04/25/17 04/25/17 11:45 11:45 11:45 WBC 4.1 RBC 2.64 L Hgb 9.1 L Hct 28.7 L MCV 108.7 H MCH 35 H MCHC 31.7 L RDW 17.4 H Plt Count 191 MPV 10.5 Neut % (Auto) 58.1 Lymph % (Auto) 25.7 Perry % (Auto) 13.3 H Eos % (Auto) 2.2 Baso % (Auto) 0.2 Neut # (Auto) 2.4 Lymph # (Auto) 1.1 L Perry # (Auto) 0.6 Eos # (Auto) 0.1 Baso # (Auto) 0.0 Total Counted 100 Immature Gran % 0.5 Nucleated RBC % 0.0 Immature Gran # 0.02 Segmented Neutrophils 61 Band Neutrophils 1 Lymphocytes 26 Monocytes 10 Eosinophils 1 Basophils 1.0 H Nucleated RBCs # 0.00 Platelet Estimate Adequate Hypochromasia 1+ Anisocytosis 1+ Microcytosis 1+ Macrocytosis Slight Ovalocytes Slight INR PT Patient/Control Mix Circ Anticoag PTT Sodium Potassium Chloride Carbon Dioxide Anion Gap BUN Creatinine GFR Calculation BUN/Creatinine Ratio Glucose Calculated Osmolality Calcium Total Bilirubin AST ALT Alkaline Phosphatase Troponin I 0.030 B-Natriuretic Peptide 568 H Total Protein Albumin Globulin Albumin/Globulin Ratio Lipase Urine Color Urine Appearance Urine pH Ur Specific [place] Urine Protein Urine Glucose (UA) Urine Ketones Urine Blood Urine Nitrate Urine Bilirubin Urine Urobilinogen Urine Leukocytes Urine RBC Urine WBC Urine Mucus Ur Culture Indicated? - Diagnostic Findings Procedure: Chest x-ray: report reviewed by me - EKG EKG results: interpreted by me EKG shows: sinus rhythm
[2017-04-25] MEDS ORDERED: KETOROLAC 15 MG/1 ML VIAL IV ONE (17:21)
[2017-04-25] MEDS ORDERED: ALBUTEROL 2.5 MG/3 ML NEB RESP TX PRN (19:00)
[2017-04-25] MEDS ORDERED: MAGNESIUM HYDROXIDE SUSP 30 ML UDCUP PO PRN (20:06)
[2017-04-25] MEDS: FAMOTIDINE 20 MG TABLET PO SCH (20:41)
[2017-04-25] MEDS: ISOSORBIDE DINITRATE SR 40 MG TABLET PO SCH (20:41)
[2017-04-25] MEDS: DOCUSATE SODIUM 100 MG CAPSULE PO SCH (20:41)
[2017-04-25] MEDS: DILTIAZEM CD 180 MG CAPSULE PO SCH (20:41)
[2017-04-25] MEDS: CARVEDILOL 6.25 MG TABLET PO SCH (20:41)
[2017-04-25] MEDS: HYOSCYAMINE 0.125 MG TABLET PO SCH (20:42)
[2017-04-25] MEDS: AZELASTINE NASAL 137 MCG/SPRAY 30 ML BOTTLE BOTH NARES SCH (20:55)
[2017-04-25] MEDS ORDERED: GABAPENTIN 300 MG CAPSULE PO SCH (21:00)
[2017-04-25] MEDS ORDERED: PRAVASTATIN 40 MG TABLET PO SCH (21:00)
[2017-04-25] MEDS ORDERED: PANTOPRAZOLE 40 MG TABLET PO SCH (21:00)
[2017-04-25] MEDS ORDERED: MONTELUKAST 10 MG TABLET PO SCH (21:00)
[2017-04-25] MEDS ORDERED: AMITRIPTYLINE 25 MG TABLET PO SCH (21:00)
[2017-04-26 05:35] LABS: Albumin 2.5 G/DL (3.4-5.0); Bilirubin,Total 0.9 MG/DL (0.2-1.0); Calcium 8.3 MG/DL (8.5-10.1); Magnesium 2.4 MG/DL (1.8-2.4); Potassium 4.4 MMOL/L (3.5-5.1); Risk Ratio 3.22; Thyroid Stimulating Hormone 1.81 uIU/ml (0.358-3.74); Total Protein 5.5 G/DL (6.4-8.3); VLDL CHOLESTEROL 26.2 MG/DL
[2017-04-26 05:44] LABS: Basophils % 0.3 % (0.0-0.8); Eosinophils # 0.1 10*3/uL (0.0-0.87); Eosinophils % 3.4 % (0.00-10.9); Hematocrit 25.2 VOL% (42.0-52.0); Hemoglobin 8.1 GM/DL (14.0-18.0); Immature Granulocytes % 0.3 %; Immature Granulocytes Absolute 0.01 #; Lymphocytes # 1.5 10*3/uL (1.4-4.0); Lymphocytes % 37.6 % (21.2-54.2); Mean Corpuscular HGB Conc 32.1 GM/DL (32-36); Mean Corpuscular Hemoglobin 35 PG (27-34); Mean Corpuscular Volume 108.2 FL (87-102); Mean Platelet Volume 10.5 FL (9.6-12.0); Monocytes # 0.6 10*3/uL (0.11-0.8); Monocytes % 16.1 % (1.7-12.7); Neutrophils # 1.6 10*3/uL (1.4-7.4); Neutrophils % 42.3 % (38.7-73.9); Platelet Count 188 T/CUMM (130-400); Red Blood Count 2.33 MC/CUMM (3.8-5.5); Red Cell Distribution Width 17.8 % (9.3-17.3); White Blood Count 3.9 T/CUMM (4-12)
[2017-04-26 06:16] LABS: Band Neutrophils 2 % (0-10); Eosinophils 4 % (0-10); Lymphocytes 38 % (20-55); Segmented Neutrophils 48 % (50-85); Total Cells Counted 100
[2017-04-26 06:29] LABS: Hypochromasia 1+
[2017-04-26 06:30] LABS: Microcytosis 1+; Ovalocytes Slight; Platelet Estimate Adequate; Polychromasia Slight
--- NOTE | 2017-04-26 07:45 | EKG Report ---
Stationary ECG Study 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
[2017-04-26] MEDS ORDERED: POTASSIUM CHLORIDE 20 MEQ TABLET PO SCH (09:00)
[2017-04-26] MEDS ORDERED: ASPIRIN EC 81 MG TABLET PO SCH (09:00)
[2017-04-26] MEDS ORDERED: MULTIVITAMIN (OCUVITE) TABLET PO SCH (09:00)
[2017-04-26] MEDS ORDERED: IRON (CARBONYL) 45 MG TABLET PO SCH (09:00)
[2017-04-26] MEDS ORDERED: CHOLECALCIFEROL 1,000 UNIT TABLET PO SCH (09:00)
[2017-04-26] MEDS ORDERED: PYRIDOXINE 100 MG TABLET PO SCH (09:00)
[2017-04-26] MEDS: HYOSCYAMINE 0.125 MG TABLET PO SCH (09:57)
[2017-04-26] MEDS: FAMOTIDINE 20 MG TABLET PO SCH (09:57)
[2017-04-26] MEDS: CARVEDILOL 6.25 MG TABLET PO SCH (09:58)
[2017-04-26] MEDS: DILTIAZEM CD 180 MG CAPSULE PO SCH (09:59)
[2017-04-26] MEDS: DOCUSATE SODIUM 100 MG CAPSULE PO SCH (10:02)
[2017-04-26] MEDS: AZELASTINE NASAL 137 MCG/SPRAY 30 ML BOTTLE BOTH NARES SCH (10:03)
[2017-04-26] MEDS: ISOSORBIDE DINITRATE SR 40 MG TABLET PO SCH (10:05)
--- NOTE | 2017-04-26 10:32 | Discharge Summary ---
Hospital Course - Hospital Course Hospital Course: BRAKE REPAIR SUPERVISOR: DR. MCGOVERN PCP: Dr. Trimble ([place], [place]) SUMMARY Mr. Triston Jr., 87WM, routinely followed by Dr. Jarrett Mcgovern WITH NO KNOWN HISTORY OF CAD. Risk factors include: advanced age, former smoker (quit in 1989), sedentary lifestyle and dyslipidemia. 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 Pickard (status post radiation therapy) COPD (wears home oxygen), congestive heart failure, esophageal spasm, recurrent pneumonia. Most recent stress test: April 20, 2015 - revealed perfusion abnormality suspicious for an area of the LAD distribution reversibility or ischemia. Subsequently, underwent LHC April 21, 2015 (performed by Dr. Shepard) which revealed angiographically no evidence of significant fixed coronary obstruction. (See LHC in [facility]). Most recent echocardiogram February 2017: EF 70%, 3+ LAE, 3+ concentric LVH, RVSP 41mmHg. Patient presented to [facility] with recurrent chest pain. Cardiac biomarkers negative 3 and EKG is unchanged. Patient was given a one-time dose of IV Toradol which relieved his pain. Patient has had no further complaints of chest pain, heaviness or tightness. Vital signs are stable. Patient already has an appointment for outpatient cardiac stress test scheduled for tomorrow at 10:00 AM at the cardiovascular [facility]. After discussing with Dr. Rojo, patient is stable for discharge home from a cardiac standpoint and has been instructed to follow-up tomorrow for outpatient stress testing. He will then follow with Dr. Mcgovern 1 week after having stress test in order to review his results. Patient is in favor of this plan as he is anxious for discharge home today. ASSESSMENT/PLAN 1. CHEST PAIN - Cardiac biomarkers negative 3 and EKG is unchanged. Patient was given a one-time dose of IV Toradol which relieved his pain. Patient has had no further complaints of chest pain, heaviness or tightness. Patient already has an appointment for outpatient cardiac stress test scheduled for tomorrow at 10:00 AM at the cardiovascular [facility]. After discussing with Dr. Rojo, patient is stable for discharge home from a cardiac standpoint and has been instructed to follow-up tomorrow for outpatient stress testing. He will then follow with Dr. Mcgovern 1 week after having stress test in order to review his results. Patient is in favor of this plan as he is anxious for discharge home today. 2. ABNORMAL CXRAY - reveals continued diffuse infiltrates versus edema and more prominent pleural effusion noted in the right base. Continue with oxygen. Likely related to his hx of Lung CA and Radiation therapy. 3. DYSLIPIDEMIA - Continue lipid-lowering agent. LDL 87. 4. FORMER SMOKER - Patient reports that he quit smoking in 1989. 5. COPD, ON HOME O2 - hypoxic when he is not using his oxygen. Continue 6. HISTORY OF LUNG CANCER, STATUS POST RADIATION - followed by Dr. Pickard. manager med surg reports that family has reached out to her and is in favor of placing patient on hospice. 7. HISTORY OF ESOPHAGEAL SPASM -continue current plan of care. 8. HISTORY OF PULMONARY HYPERTENSION -continue current plan of care 9. CHRONIC ATRIAL FIBRILLATION - not a candidate for anticoagulation due to severe GI bleeding requiring transfusion 10. HISTORY OF GI BLEED -prohibits use anticoagulant for stroke prevention. 11. CHRONIC RBBB -EKG unchanged from prior EKG The patient has reached maximal benefit from his inpatient hospitalization is being discharged home to follow-up with his primary care physician and car servicer. - Time spent with patient Time with patient DS: Greater than 30 minutes (Total discharge time for this patient, including [id number] time, clinical documentation, medication reconciliation, and discharge planning was 34 minutes.) Diagnosis - Discharge Diagnosis (1) Dyslipidemia Status: Chronic (2) COPD (chronic obstructive pulmonary disease) Status: Chronic (3) Chronic atrial fibrillation Status: Chronic (4) History of GI bleed Status: Chronic (5) Right bundle branch block Status: Chronic (6) Chest pain Status: Resolved (7) Lung cancer Status: Chronic (8) Atrial fibrillation Status: Chronic (9) AVM (arteriovenous malformation) Status: Chronic (10) On home oxygen therapy Status: Chronic Discharge Plan - Discharge Data Disposition: Disch To Home/Self Care Condition at Discharge: Stable Discharge Diet: advance to your usual diet Activity: resume usual activities as tolerated Hygiene: no restrictions Weight Bearing at Discharge: full weight bearing Driving: no restrictions Contact your physician if you experience:: fever over 101, Nausea/Vomiting, Shortness of breath, pain uncontrolled by pain medications - Discharge Medications Continue RX: Nitroglycerin Sl Tab [Nitrostat] 0.4 mg SL Q5M PRN PRN Reason: Chest Pain RX: Gabapentin 300 mg PO BEDTIME RX: Aspirin EC Tab 81 mg PO QAM RX: Pravastatin Sodium 80 mg PO BEDTIME RX: Acetaminophen Tab [Tylenol Tab] 325 mg PO BID #60 tablet RX: Carvedilol [Coreg] 6.25 mg PO BID tablet RX: Hyoscyamine Tab [Levsin Tab] 0.125 mg PO BID #60 tablet RX: Albuterol Inhaler [Proventil Inhaler] 2 puff INH Q6HR PRN #0 inhaler PRN Reason: Shortness Of Breath/Wheezing RX: Amitriptyline HCl 25 mg PO BEDTIME #0 tablet RX: Cholecalciferol (Vitamin D3) [Vitamin D3] 5,000 unit PO QAM #0 tablet RX: Furosemide Tab [Lasix Tab] 20 mg PO BID PRN #45 tablet PRN Reason: Edema RX: Iron (Carbonyl) [Feosol Natural Release Tab] 45 mg PO QAM #0 tablet RX: Montelukast Tab [Singulair Tab] 10 mg PO BEDTIME #0 tablet RX: Potassium Chloride Cap/Tab [K Dur] 20 meq PO QAM #0 tablet RX: Vit C/Vit E AC/Lut/Copper/Zinc [Preservision Lutein Softgel] 1 each PO DAILY #0 tablet RX: dilTIAZem HCl [Tiazac] 180 mg PO BID #0 tablet RX: HYDROcodone/ACETAMIN 5-325 [[place] 5-325] 1 tablet PO BEDTIME RX: Pyridoxine Tab [Vitamin B6 Tab] 100 mg PO QAM RX: Docusate Sodium Cap [Colace Cap] 100 mg PO BID #0 tablet RX: Pantoprazole Tab [Protonix Tab] 40 mg PO QPM #0 tablet RX: Azelastine Nasal 137 Mcg/[place] [Astelin Nasal [place]] 2 spray BOTH NARES BID - Follow Up or Referral Follow Up: Jarrett Mcgovern MD [Physician] - (As scheduled tomorrow) - Forms/Instructions Exam - Constitutional Vitals: Period Temp Pulse Resp BP Sys/Brown Pulse Ox Last 24 Hr 96.9 F-98.8 F 68-112 16-27 74-137/30-73 84-99 Discharge Results Labs on day of discharge: Labs from last 24 hours 04/26/17 04/26/17 04/26/17 04:44 04:44 04:44 WBC 3.9 L RBC 2.33 L Hgb 8.1 L Hct 25.2 L MCV 108.2 H MCH 35 H MCHC 32.1 RDW 17.8 H Plt Count 188 MPV 10.5 Neut % (Auto) 42.3 Lymph % (Auto) 37.6 [place] % (Auto) 16.1 H Eos % (Auto) 3.4 Baso % (Auto) 0.3 Neut # (Auto) 1.6 Lymph # (Auto) 1.5 [place] # (Auto) 0.6 Eos # (Auto) 0.1 Baso # (Auto) 0.0 Total Counted 100 Immature Gran % 0.3 Nucleated RBC % 0.0 Immature Gran # 0.01 Segmented Neutrophils 48 L Band Neutrophils 2 Lymphocytes 38 Monocytes 8 Eosinophils 4 Basophils Nucleated RBCs # 0.00 Platelet Estimate Adequate Polychromasia Slight Hypochromasia 1+ Anisocytosis Microcytosis 1+ Macrocytosis Ovalocytes Slight INR PT Patient/Control Mix Circ Anticoag PTT Sodium 143 Potassium 4.4 Chloride 107 Carbon Dioxide 31 Anion Gap 9.4 BUN 19 H Creatinine 1.20 GFR Calculation 62 BUN/Creatinine Ratio 15.00 Glucose 96 Hemoglobin A1c < 4.2 L Calculated Osmolality 286.0 Calcium 8.3 L Magnesium 2.4 Total Bilirubin 0.90 AST 17 ALT 15 L Alkaline Phosphatase 85 Troponin I B-Natriuretic Peptide Total Protein 5.5 L Albumin 2.5 L Globulin 3.0 Albumin/Globulin Ratio 0.8 L Triglycerides 131 Cholesterol 116 LDL Cholesterol 62.0 VLDL Cholesterol 26.2 HDL Cholesterol 36 L Heart Disease Risk Ratio 3.22 Amylase Lipase TSH 3rd Generation 1.810 Urine Color Urine Appearance Urine pH Ur Specific [place] Urine Protein Urine Glucose (UA) Urine Ketones Urine Blood Urine Nitrate Urine Bilirubin Urine Urobilinogen Urine Leukocytes Urine RBC Urine WBC Urine Mucus Ur Culture Indicated? 04/25/17 04/25/17 04/25/17 20:11 16:14 11:45 WBC RBC Hgb Hct MCV MCH MCHC RDW Plt Count MPV Neut % (Auto) Lymph % (Auto) [place] % (Auto) Eos % (Auto) Baso % (Auto) Neut # (Auto) Lymph # (Auto) [place] # (Auto) Eos # (Auto) Baso # (Auto) Total Counted Immature Gran % Nucleated RBC % Immature Gran # Segmented Neutrophils Band Neutrophils Lymphocytes Monocytes Eosinophils Basophils Nucleated RBCs # Platelet Estimate Polychromasia Hypochromasia Anisocytosis Microcytosis Macrocytosis Ovalocytes INR PT Patient/Control Mix Circ Anticoag PTT Sodium Potassium Chloride Carbon Dioxide Anion Gap BUN Creatinine GFR Calculation BUN/Creatinine Ratio Glucose Hemoglobin A1c Calculated Osmolality Calcium Magnesium Total Bilirubin AST ALT Alkaline Phosphatase Troponin I 0.040 0.031 B-Natriuretic Peptide Total Protein Albumin Globulin Albumin/Globulin Ratio Triglycerides Cholesterol LDL Cholesterol VLDL Cholesterol HDL Cholesterol Heart Disease Risk Ratio Amylase 21 L Lipase 99.0 TSH 3rd Generation Urine Color Urine Appearance Urine pH Ur Specific [place] Urine Protein Urine Glucose (UA) Urine Ketones Urine Blood Urine Nitrate Urine Bilirubin Urine Urobilinogen Urine Leukocytes Urine RBC Urine WBC Urine Mucus Ur Culture Indicated? 04/25/17 04/25/17 04/25/17 11:45 11:45 11:45 WBC 4.1 RBC 2.64 L Hgb 9.1 L Hct 28.7 L MCV 108.7 H MCH 35 H MCHC 31.7 L RDW 17.4 H Plt Count 191 MPV 10.5 Neut % (Auto) 58.1 Lymph % (Auto) 25.7 [place] % (Auto) 13.3 H Eos % (Auto) 2.2 Baso % (Auto) 0.2 Neut # (Auto) 2.4 Lymph # (Auto) 1.1 L [place] # (Auto) 0.6 Eos # (Auto) 0.1 Baso # (Auto) 0.0 Total Counted 100 Immature Gran % 0.5 Nucleated RBC % 0.0 Immature Gran # 0.02 Segmented Neutrophils 61 Band Neutrophils 1 Lymphocytes 26 Monocytes 10 Eosinophils 1 Basophils 1.0 H Nucleated RBCs # 0.00 Platelet Estimate Adequate Polychromasia Hypochromasia 1+ Anisocytosis 1+ Microcytosis 1+ Macrocytosis Slight Ovalocytes Slight INR PT Patient/Control Mix Circ Anticoag PTT Sodium Potassium Chloride Carbon Dioxide Anion Gap BUN Creatinine GFR Calculation BUN/Creatinine Ratio Glucose Hemoglobin A1c Calculated Osmolality Calcium Magnesium Total Bilirubin AST ALT Alkaline Phosphatase Troponin I 0.030 B-Natriuretic Peptide 568 H Total Protein Albumin Globulin Albumin/Globulin Ratio Triglycerides Cholesterol LDL Cholesterol VLDL Cholesterol HDL Cholesterol Heart Disease Risk Ratio Amylase Lipase TSH 3rd Generation Urine Color Urine Appearance Urine pH Ur Specific [place] Urine Protein Urine Glucose (UA) Urine Ketones Urine Blood Urine Nitrate Urine Bilirubin Urine Urobilinogen Urine Leukocytes Urine RBC Urine WBC Urine Mucus Ur Culture Indicated? 04/25/17 04/25/17 04/25/17 11:45 11:45 11:44 WBC RBC Hgb Hct MCV MCH MCHC RDW Plt Count MPV Neut % (Auto) Lymph % (Auto) [place] % (Auto) Eos % (Auto) Baso % (Auto) Neut # (Auto) Lymph # (Auto) [place] # (Auto) Eos # (Auto) Baso # (Auto) Total Counted Immature Gran % Nucleated RBC % Immature Gran # Segmented Neutrophils Band Neutrophils Lymphocytes Monocytes Eosinophils Basophils Nucleated RBCs # Platelet Estimate Polychromasia Hypochromasia Anisocytosis Microcytosis Macrocytosis Ovalocytes INR 1.0 PT Patient/Control Mix 11.1 Circ Anticoag PTT 28.2 Sodium 142 Potassium 4.1 Chloride 107 Carbon Dioxide 31 Anion Gap 8.1 BUN 12 Creatinine 1.10 GFR Calculation 69 BUN/Creatinine Ratio 10.00 Glucose 104 Hemoglobin A1c Calculated Osmolality 282.1 Calcium 9.0 Magnesium Total Bilirubin 0.80 AST 18 ALT 18 Alkaline Phosphatase 101 Troponin I B-Natriuretic Peptide Total Protein 6.4 Albumin 2.9 L Globulin 3.5 Albumin/Globulin Ratio 0.8 L Triglycerides Cholesterol LDL Cholesterol VLDL Cholesterol HDL Cholesterol Heart Disease Risk Ratio Amylase Lipase 93.0 TSH 3rd Generation Urine Color Straw Urine Appearance Clear Urine pH 7.0 Ur Specific [place] 1.005 Urine Protein Negative Urine Glucose (UA) Negative Urine Ketones Negative Urine Blood Negative Urine Nitrate Negative Urine Bilirubin Negative Urine Urobilinogen < 2.0 H Urine Leukocytes Negative Urine RBC <1 Urine WBC <1 Urine Mucus Occasional Ur Culture Indicated? Not indicated DS: Provider Date of admission: 04/25/17 13:03 Primary care physician: . No PCP Attending physician on admission: Gabriella Alejandre MD Consults: 04/25/17 14:25 Consult to Physician [CONS] Routine Comment: chest pain, chf, afib Consulting Provider: Cardiology - [facility] Person Notified: Jong Date Notified: 04/25/17 Time Notified: 15:46 Discharging clinician: Gabriella Alejandre MD Expected date of discharge: 04/26/17
--- NOTE | 2017-04-26 10:33 | Cardiology Progress Note ---
<Joleen Alonso - Last Filed: 04/26/17 10:06> Assessment and Plan (1) Chest pain Status: Resolved Assessment and plan: See plan of care listed below. Current Visit: Yes (2) AVM (arteriovenous malformation) Status: Chronic Assessment and plan: See plan of care listed below. Current Visit: Yes (3) Atrial fibrillation Status: Chronic Assessment and plan: See plan of care listed below. Current Visit: Yes (4) Lung cancer Status: Chronic Assessment and plan: See plan of care listed below. Current Visit: Yes (5) Adenocarcinoma, lung Status: Chronic Assessment and plan: See plan of care listed below. Current Visit: Yes (6) COPD (chronic obstructive pulmonary disease) Status: Chronic Assessment and plan: See plan of care listed below. Current Visit: No (7) Dyslipidemia Status: Chronic Assessment and plan: See plan of care listed below. Current Visit: No (8) Former smoker Status: Chronic Assessment and plan: See plan of care listed below. Current Visit: No (9) SOB (shortness of breath) Status: Chronic Assessment and plan: See plan of care listed below. Current Visit: No (10) On home oxygen therapy Status: Chronic Assessment and plan: See plan of care listed below. Current Visit: Yes Cardiology - PN: Subj Interval history: WEED SPRAYER: DR. MCGOVERN PCP: DR. ANGIE Goldstein Jr., 87WM, routinely followed by Dr. Jarrett Mcgovern WITH NO KNOWN HISTORY OF CAD. Risk factors include: advanced age, former smoker (quit in 1989), sedentary lifestyle and dyslipidemia. 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 Pickard (status post radiation therapy) COPD (wears home oxygen), congestive heart failure, esophageal spasm, recurrent pneumonia. Most recent stress test: April 20, 2015 - revealed perfusion abnormality suspicious for an area of the LAD distribution reversibility or ischemia. Subsequently, underwent LHC April 21, 2015 (performed by Dr. Shepard) which revealed angiographically no evidence of significant fixed coronary obstruction. (See LHC in [facility]). Most recent echocardiogram February 2017: EF 70%, 3+ LAE, 3+ concentric LVH, RVSP 41mmHg. Patient presented to [facility] with recurrent chest pain. Cardiac biomarkers negative 3 and EKG is unchanged. Patient was given a one-time dose of IV Toradol which relieved his pain. Patient has had no further complaints of chest pain, heaviness or tightness. Vital signs are stable. Patient already has an appointment for outpatient cardiac stress test scheduled for tomorrow at 10:00 AM at the cardiovascular [place] [facility]. After discussing with Dr. Rojo, patient is stable for discharge home from a cardiac standpoint and has been instructed to follow-up tomorrow for outpatient stress testing. He will then follow with Dr. Mcgovern 1 week after having stress test in order to review his results. Patient is in favor of this plan as he is anxious for discharge home today. ASSESSMENT/PLAN 1. CHEST PAIN - Cardiac biomarkers negative 3 and EKG is unchanged. Patient was given a one-time dose of IV Toradol which relieved his pain. Patient has had no further complaints of chest pain, heaviness or tightness. Patient already has an appointment for outpatient cardiac stress test scheduled for tomorrow at 10:00 AM at the cardiovascular [place] [facility]. After discussing with Dr. Rojo, patient is stable for discharge home from a cardiac standpoint and has been instructed to follow-up tomorrow for outpatient stress testing. He will then follow with Dr. Mcgovern 1 week after having stress test in order to review his results. Patient is in favor of this plan as he is anxious for discharge home today. 2. ABNORMAL CXRAY - reveals continued diffuse infiltrates versus edema and more prominent pleural effusion noted in the right base. Continue with oxygen. Will give diuretic, may need further workup with CT chest but will defer to attending. 3. DYSLIPIDEMIA - Continue lipid-lowering agent. LDL 87. 4. FORMER SMOKER - Patient reports that he quit smoking in 1989. 5. COPD, ON HOME O2 - hypoxic when he is not using his oxygen. Continue 6. HISTORY OF LUNG CANCER, STATUS POST RADIATION - followed by Dr. Pickard. clinical trial manager reports that family has reached out to her and is in favor of placing patient on hospice. 7. HISTORY OF ESOPHAGEAL SPASM -continue current plan of care. 8. HISTORY OF PULMONARY HYPERTENSION -continue current plan of care 9. CHRONIC ATRIAL FIBRILLATION - not a candidate for anticoagulation due to severe GI bleeding requiring transfusion 10. HISTORY OF GI BLEED -prohibits use anticoagulant for stroke prevention. 11. CHRONIC RBBB -EKG unchanged from prior EKG Exam (Progress Note) - Constitutional Vitals: Period Temp Pulse Resp BP Sys/Brown Pulse Ox Last 24 Hr 96.9 F-98.8 F 68-112 16-27 74-137/30-73 84-99 Exam: General: [Appears his stated age] [Pleasant and cooperative. ] [Appears comfortable.] HEENT: [Bilateral arcus, normocephalic, atraumatic. Mucous membranes moist. No jaundice noted. Conjunctiva moist and clear, sclerae anicteric] Neck: No JVD/HJR, no thyromegaly or lymphadenopathy noted. No carotid bruit appreciated Cardiac: [Regular rate and rhythm.] [No obvious murmur rub or gallop.] Lungs: [Decreased breath sounds.] Oxygen in use via nasal cannula Abdomen: Soft, bowel sounds normoactive. Nontender and nondistended. No abdominal bruit or thrill noted. No masses noted. Musculoskeletal: No fluid collection. Decreased range of motion is noted. Extremities: No clubbing, cyanosis noted. [ No edema noted.] Upper extremity pulses 2+. Lower extremity pulses 2+. Capillary refill less than 3 seconds. Skin: No unusual lesions or rashes. No skin breakdown appreciated. Neuro: Awake, alert and oriented 3. Moves all extremities well without hemiparesis or paralysis. No essential tremor is appreciated. Result/EKG - Labs CBC & BMP: 04/26/17 04:44 04/26/17 04:44 Lab Results: I have reviewed the past 24 hour labs Labs: Laboratory Results - last 24 hr 04/25/17 04/25/17 04/25/17 11:44 11:45 11:45 WBC RBC Hgb Hct MCV MCH MCHC RDW Plt Count MPV Neut % (Auto) Lymph % (Auto) Kane % (Auto) Eos % (Auto) Baso % (Auto) Neut # (Auto) Lymph # (Auto) Kane # (Auto) Eos # (Auto) Baso # (Auto) Total Counted Immature Gran % Nucleated RBC % Immature Gran # Segmented Neutrophils Band Neutrophils Lymphocytes Monocytes Eosinophils Basophils Nucleated RBCs # Platelet Estimate Polychromasia Hypochromasia Anisocytosis Microcytosis Macrocytosis Ovalocytes INR 1.0 PT Patient/Control Mix 11.1 Circ Anticoag PTT 28.2 Sodium 142 Potassium 4.1 Chloride 107 Carbon Dioxide 31 Anion Gap 8.1 BUN 12 Creatinine 1.10 GFR Calculation 69 BUN/Creatinine Ratio 10.00 Glucose 104 Hemoglobin A1c Calculated Osmolality 282.1 Calcium 9.0 Magnesium Total Bilirubin 0.80 AST 18 ALT 18 Alkaline Phosphatase 101 Troponin I B-Natriuretic Peptide Total Protein 6.4 Albumin 2.9 L Globulin 3.5 Albumin/Globulin Ratio 0.8 L Triglycerides Cholesterol LDL Cholesterol VLDL Cholesterol HDL Cholesterol Heart Disease Risk Ratio Amylase Lipase 93.0 TSH 3rd Generation Urine Color Straw Urine Appearance Clear Urine pH 7.0 Ur Specific [place] 1.005 Urine Protein Negative Urine Glucose (UA) Negative Urine Ketones Negative Urine Blood Negative Urine Nitrate Negative Urine Bilirubin Negative Urine Urobilinogen < 2.0 H Urine Leukocytes Negative Urine RBC <1 Urine WBC <1 Urine Mucus Occasional Ur Culture Indicated? Not indicated 04/25/17 04/25/17 04/25/17 11:45 11:45 11:45 WBC 4.1 RBC 2.64 L Hgb 9.1 L Hct 28.7 L MCV 108.7 H MCH 35 H MCHC 31.7 L RDW 17.4 H Plt Count 191 MPV 10.5 Neut % (Auto) 58.1 Lymph % (Auto) 25.7 Kane % (Auto) 13.3 H Eos % (Auto) 2.2 Baso % (Auto) 0.2 Neut # (Auto) 2.4 Lymph # (Auto) 1.1 L Kane # (Auto) 0.6 Eos # (Auto) 0.1 Baso # (Auto) 0.0 Total Counted 100 Immature Gran % 0.5 Nucleated RBC % 0.0 Immature Gran # 0.02 Segmented Neutrophils 61 Band Neutrophils 1 Lymphocytes 26 Monocytes 10 Eosinophils 1 Basophils 1.0 H Nucleated RBCs # 0.00 Platelet Estimate Adequate Polychromasia Hypochromasia 1+ Anisocytosis 1+ Microcytosis 1+ Macrocytosis Slight Ovalocytes Slight INR PT Patient/Control Mix Circ Anticoag PTT Sodium Potassium Chloride Carbon Dioxide Anion Gap BUN Creatinine GFR Calculation BUN/Creatinine Ratio Glucose Hemoglobin A1c Calculated Osmolality Calcium Magnesium Total Bilirubin AST ALT Alkaline Phosphatase Troponin I 0.030 B-Natriuretic Peptide 568 H Total Protein Albumin Globulin Albumin/Globulin Ratio Triglycerides Cholesterol LDL Cholesterol VLDL Cholesterol HDL Cholesterol Heart Disease Risk Ratio Amylase Lipase TSH 3rd Generation Urine Color Urine Appearance Urine pH Ur Specific [place] Urine Protein Urine Glucose (UA) Urine Ketones Urine Blood Urine Nitrate Urine Bilirubin Urine Urobilinogen Urine Leukocytes Urine RBC Urine WBC Urine Mucus Ur Culture Indicated? 04/25/17 04/25/17 04/25/17 11:45 16:14 20:11 WBC RBC Hgb Hct MCV MCH MCHC RDW Plt Count MPV Neut % (Auto) Lymph % (Auto) Kane % (Auto) Eos % (Auto) Baso % (Auto) Neut # (Auto) Lymph # (Auto) Kane # (Auto) Eos # (Auto) Baso # (Auto) Total Counted Immature Gran % Nucleated RBC % Immature Gran # Segmented Neutrophils Band Neutrophils Lymphocytes Monocytes Eosinophils Basophils Nucleated RBCs # Platelet Estimate Polychromasia Hypochromasia Anisocytosis Microcytosis Macrocytosis Ovalocytes INR PT Patient/Control Mix Circ Anticoag PTT Sodium Potassium Chloride Carbon Dioxide Anion Gap BUN Creatinine GFR Calculation BUN/Creatinine Ratio Glucose Hemoglobin A1c Calculated Osmolality Calcium Magnesium Total Bilirubin AST ALT Alkaline Phosphatase Troponin I 0.031 0.040 B-Natriuretic Peptide Total Protein Albumin Globulin Albumin/Globulin Ratio Triglycerides Cholesterol LDL Cholesterol VLDL Cholesterol HDL Cholesterol Heart Disease Risk Ratio Amylase 21 L Lipase 99.0 TSH 3rd Generation Urine Color Urine Appearance Urine pH Ur Specific [place] Urine Protein Urine Glucose (UA) Urine Ketones Urine Blood Urine Nitrate Urine Bilirubin Urine Urobilinogen Urine Leukocytes Urine RBC Urine WBC Urine Mucus Ur Culture Indicated? 04/26/17 04/26/17 04/26/17 04:44 04:44 04:44 WBC 3.9 L RBC 2.33 L Hgb 8.1 L Hct 25.2 L MCV 108.2 H MCH 35 H MCHC 32.1 RDW 17.8 H Plt Count 188 MPV 10.5 Neut % (Auto) 42.3 Lymph % (Auto) 37.6 Kane % (Auto) 16.1 H Eos % (Auto) 3.4 Baso % (Auto) 0.3 Neut # (Auto) 1.6 Lymph # (Auto) 1.5 Kane # (Auto) 0.6 Eos # (Auto) 0.1 Baso # (Auto) 0.0 Total Counted 100 Immature Gran % 0.3 Nucleated RBC % 0.0 Immature Gran # 0.01 Segmented Neutrophils 48 L Band Neutrophils 2 Lymphocytes 38 Monocytes 8 Eosinophils 4 Basophils Nucleated RBCs # 0.00 Platelet Estimate Adequate Polychromasia Slight Hypochromasia 1+ Anisocytosis Microcytosis 1+ Macrocytosis Ovalocytes Slight INR PT Patient/Control Mix Circ Anticoag PTT Sodium 143 Potassium 4.4 Chloride 107 Carbon Dioxide 31 Anion Gap 9.4 BUN 19 H Creatinine 1.20 GFR Calculation 62 BUN/Creatinine Ratio 15.00 Glucose 96 Hemoglobin A1c < 4.2 L Calculated Osmolality 286.0 Calcium 8.3 L Magnesium 2.4 Total Bilirubin 0.90 AST 17 ALT 15 L Alkaline Phosphatase 85 Troponin I B-Natriuretic Peptide Total Protein 5.5 L Albumin 2.5 L Globulin 3.0 Albumin/Globulin Ratio 0.8 L Triglycerides 131 Cholesterol 116 LDL Cholesterol 62.0 VLDL Cholesterol 26.2 HDL Cholesterol 36 L Heart Disease Risk Ratio 3.22 Amylase Lipase TSH 3rd Generation 1.810 Urine Color Urine Appearance Urine pH Ur Specific [place] Urine Protein Urine Glucose (UA) Urine Ketones Urine Blood Urine Nitrate Urine Bilirubin Urine Urobilinogen Urine Leukocytes Urine RBC Urine WBC Urine Mucus Ur Culture Indicated? Specialty Discharge - Follow Up or Referrals Follow up with: Jarrett Mcgovern MD [Physician] - (As scheduled tomorrow) <Deonte Rojo - Last Filed: 04/26/17 14:24> Exam (Progress Note) - Constitutional Vitals: Period Temp Pulse Resp BP Sys/Brown Pulse Ox Last 24 Hr 96.9 F-98.8 F 68-87 16-22 74-127/30-65 84-97 Result/EKG - Labs CBC & BMP: 04/26/17 04:44 04/26/17 04:44 Labs: Laboratory Results - last 24 hr 04/25/17 04/25/17 04/25/17 11:45 16:14 20:11 WBC RBC Hgb Hct MCV MCH MCHC RDW Plt Count MPV Neut % (Auto) Lymph % (Auto) Kane % (Auto) Eos % (Auto) Baso % (Auto) Neut # (Auto) Lymph # (Auto) Kane # (Auto) Eos # (Auto) Baso # (Auto) Total Counted Immature Gran % Nucleated RBC % Immature Gran # Segmented Neutrophils Band Neutrophils Lymphocytes Monocytes Eosinophils Nucleated RBCs # Platelet Estimate Polychromasia Hypochromasia Microcytosis Ovalocytes Sodium Potassium Chloride Carbon Dioxide Anion Gap BUN Creatinine GFR Calculation BUN/Creatinine Ratio Glucose Hemoglobin A1c Calculated Osmolality Calcium Magnesium Total Bilirubin AST ALT Alkaline Phosphatase Troponin I 0.031 0.040 Total Protein Albumin Globulin Albumin/Globulin Ratio Triglycerides Cholesterol LDL Cholesterol VLDL Cholesterol HDL Cholesterol Heart Disease Risk Ratio Amylase 21 L Lipase 99.0 TSH 3rd Generation 04/26/17 04/26/17 04/26/17 04:44 04:44 04:44 WBC 3.9 L RBC 2.33 L Hgb 8.1 L Hct 25.2 L MCV 108.2 H MCH 35 H MCHC 32.1 RDW 17.8 H Plt Count 188 MPV 10.5 Neut % (Auto) 42.3 Lymph % (Auto) 37.6 Kane % (Auto) 16.1 H Eos % (Auto) 3.4 Baso % (Auto) 0.3 Neut # (Auto) 1.6 Lymph # (Auto) 1.5 Kane # (Auto) 0.6 Eos # (Auto) 0.1 Baso # (Auto) 0.0 Total Counted 100 Immature Gran % 0.3 Nucleated RBC % 0.0 Immature Gran # 0.01 Segmented Neutrophils 48 L Band Neutrophils 2 Lymphocytes 38 Monocytes 8 Eosinophils 4 Nucleated RBCs # 0.00 Platelet Estimate Adequate Polychromasia Slight Hypochromasia 1+ Microcytosis 1+ Ovalocytes Slight Sodium 143 Potassium 4.4 Chloride 107 Carbon Dioxide 31 Anion Gap 9.4 BUN 19 H Creatinine 1.20 GFR Calculation 62 BUN/Creatinine Ratio 15.00 Glucose 96 Hemoglobin A1c < 4.2 L Calculated Osmolality 286.0 Calcium 8.3 L Magnesium 2.4 Total Bilirubin 0.90 AST 17 ALT 15 L Alkaline Phosphatase 85 Troponin I Total Protein 5.5 L Albumin 2.5 L Globulin 3.0 Albumin/Globulin Ratio 0.8 L Triglycerides 131 Cholesterol 116 LDL Cholesterol 62.0 VLDL Cholesterol 26.2 HDL Cholesterol 36 L Heart Disease Risk Ratio 3.22 Amylase Lipase TSH 3rd Generation 1.810
[2017-04-26 11:45] VITALS: BP 111/55
== END 2017-04-26 15:38 | disposition home or self-care (01) ==
LOC: EDUNIT# → N.EDINP 11:24 → N.ED 11:24 → N.TELEN 14:55
PROVIDERS: ADMIT Family Medicine; ATTEND Family Medicine